=== PATIENT | male | born 1955 | race Caucasian/White ===

== ENCOUNTER 2016-03-13 10:14 | Emergency (ER) | payer MEDICARE ==
[~2016-03-13] VITALS: Ht 188 cm; Wt 94.5 kg
[~2016-03-13 10:14] MED LIST: BUSP10TA PO
[2016-03-13 10:17] VITALS: BP 167/88; PULSE 92; RESP 20; TEMP 97.3; O2SAT 98
[2016-03-13] MEDS ORDERED: PRED50 PO (10:46)
--- NOTE | 2016-03-13 10:47 | PD ---
HPI Chief Complaint: Abdominal Pain Time Seen by Provider: 10:44 Travel History International Travel<30 days: No Contact w/Intl Traveler<30days: No Traveled to known affect area: No History of Present Illness HPI 60-year-old male with no significant medical history presents to the emergency department for evaluation right lower back pain radiating to his thigh. Patient has been seen and evaluated for this in the past. He has not sought follow-up with his primary care provider. Imaging studies were done one week ago in [place] with no acute bony abnormality identified. No new injury. No focal deficits or weakness. He is concerned because he was only given anti- inflammatory medication and he feels that he needs additional pain control. PFSH Past Medical History Arthritis: Yes (KNEES) Diminished Hearing: No Genitourinary: Yes (STATES PROSTATE CONDITION) Social History Alcohol Use: Yes (OCCASIONAL) Tobacco Use: No Substance Use: No (OCCASIONAL ALCOHOL USE) Allergies-Medications (Allergen,Severity, Reaction): Coded Allergies: No Known Allergies (Unverified , 03/13/16) Reported Meds & Prescriptions Reported Meds & Active Scripts Active Prednisone 50 Mg Tab 50 Mg PO DAILY 5 Days Reported Buspirone (Buspirone HCl) 10 Mg Tab 10 Mg PO HS Review of Systems Except as stated in HPI: all other systems reviewed are Neg Physical Exam Narrative GENERAL: Well-nourished male patient, ambulatory with a nonantalgic gait, and no acute distress SKIN: Warm and dry. HEAD: Atraumatic. Normocephalic. EYES: Pupils equal and round. No scleral icterus. No injection or drainage. ENT: No nasal bleeding or discharge. Mucous membranes pink and moist. NECK: Trachea midline. No JVD. CARDIOVASCULAR: Lightly elevated rate and rhythm. No murmur appreciated. RESPIRATORY: No accessory muscle use. Clear to auscultation. Breath sounds equal bilaterally. GASTROINTESTINAL: Abdomen soft, non-tender, nondistended. Hepatic and splenic margins not palpable. MUSCULOSKELETAL: No obvious deformities. No clubbing. No cyanosis. No edema. No midline spinal tenderness to palpation. Equal strength bilateral lower extremities. NEUROLOGICAL: Awake and alert. No obvious cranial nerve deficits. Motor grossly within normal limits. Normal speech. PSYCHIATRIC: Appropriate mood and affect; insight and judgment normal. Data Data Last Documented VS Vital Signs Date Time Temp Pulse Resp B/P Pulse Ox O2 Delivery O2 Flow Rate FiO2 03/13/16 10:17 97.3 92 20 167/88 98 Room Air Orders MDM Medical Decision Making Medical Screen Exam Complete: Yes Emergency Medical Condition: Yes Medical Record Reviewed: Yes Differential Diagnosis Lumbar strain versus discogenic pain versus radiculopathy versus sciatica versus narcotic seeking Narrative Course 60-year-old male presents to the emergency department for evaluation of low back pain. Patient has no acute injury. No focal deficits or weakness. He states that he needs "something more than anti-inflammatory." I advised him he would not be getting narcotic pain control here in the emergency department for low back pain. I have offered a course of steroids to reduce inflammation and encouraged him to follow-up with his primary care provider and seek pain management evaluation if symptoms persist. Standing and agrees to return immediately with any acute worsening of symptoms. Diagnosis Primary Impression: Low back pain Qualified Code: M54.41 - Chronic right-sided low back pain with right-sided sciatica Referrals: Primary Care Physician Patient Instructions: General Instructions, Lumbar Radiculopathy (GEN), Sciatica (ED) Additional Instructions: Avoid activity that exacerbates pain Follow-up with her primary care provider Return immediately to the emergency department with any acute worsening of symptoms Med/Other Pt SpecificInfo: Prescription(s) given Scripts Prednisone 50 Mg Tab50 Mg PO DAILY 5 Days Ref 0 Prov:Junie Dalton 03/13/16 Disposition: 01 DISCHARGE HOME Condition: Stable Junie Dalton Mar 13, 2016 10:47
[2016-03-29] MEDS ORDERED: NAPR220T95 PO (13:47)
[2016-03-29] MEDS ORDERED: TRAM50TA PO (13:47)
[2016-04-12] MEDS ORDERED: HYDR-3583 PO (12:55)
[2016-04-12] MEDS ORDERED: [UNRECOGNIZED DRUG - CODE] PO (13:32)
[2016-04-26] MEDS ORDERED: LUPR22.5 IM (15:40)
== END 2016-03-13 14:03 | disposition home or self-care (01) ==
LOC: NETRI 10:14
DX: M54.41 Lumbago with sciatica, right side (principal)
CPT/HCPCS: 99282

== ENCOUNTER → 2016-04-04 | Day surgery (SDC) | payer MEDICARE ==
[~2016-04-04] VITALS: Ht 186.7 cm; Wt 85.4 kg
[~2016-04-04] MED LIST changes: +BUPIVACAINE HCL PF 0.25% 30 ML VIAL ONE; -BUSP10TA PO; +CIPROFLOXACIN/DEXT 400 MG/200 ML IV SCH; +HYDR-3583 PO; +INSULIN HUMAN REGULAR 1,000 UNITS/10 ML VIAL SQ PRN; +LACTATED RINGER'S 1000 ML IV SCH; +LIDOCAINE 1%/EPINEPHrine 1:100,000 SOLN 30 ML VIAL ONE; +LIDOCAINE 2% JELLY 30 ML TUBE ONE; +LIDOCAINE HCL 1% 50 ML VIAL ONE; +LIDOCAINE HCL 2% JELLY 5 ML SYRINGE ONE; +LUPR22.5 IM; +METOPROLOL TARTRATE 25 MG TAB PO PRN; +NAPR220T95 PO; +SODIUM CHLORID 0.9% 500 ML IV SCH; +TRAM50TA PO; +[UNRECOGNIZED DRUG - CODE] PO
[2016-04-04 08:57] VITALS: BP 162/90; PULSE 90; RESP 20; TEMP 98.1; O2SAT 100
[2016-04-04 09:26] LABS: AUTOMATED NEUTROPHIL # 5.2 TH/MM3 (1.8-7.7); BASOPHIL % 0.2 % (0.0-2.0); EOSINOPHIL % 0.1 % (0.0-4.0); HEMATOCRIT 38.3 % (39.0-51.0); HEMO FLAGS DIFF FINAL; LYMPH % 17.3 % (9.0-44.0); LYMPHOCYTE # 1.2 TH/MM3 (1.0-4.8); MEAN CELL VOLUME 78.8 FL (80.0-100.0); MEAN CORPUSCULAR HGB CONC 35.5 % (32.0-36.0); MONO % 9.4 % (0.0-8.0); PLATELET COUNT 417 TH/MM3 (150-450); RED BLOOD COUNT 4.86 MIL/MM3 (4.50-5.90); RED CELL DISTRIBUTION WIDTH 14.6 % (11.6-17.2); WHITE BLOOD COUNT 7.1 TH/MM3 (4.0-11.0)
[2016-04-04 09:32] LABS: APTT (PATIENT) 29.6 SEC (24.3-30.1); INTERNATIONAL NORMALIZED RATIO 1.1 RATIO; PROTHROMBIN TIME - PATIENT 12.2 SEC (9.8-11.6)
--- NOTE | 2016-04-04 10:52 | PD.OP ---
Operative Report Date of Surgery: Apr 04, 2016 Preoperative Diagnosis: Elevated PSA Postoperative Diagnosis: (1) BPH with elevated PSA Same Procedure: transrectal US with prostate needle biopsies Anesthesia: Local Surgeon: Arvind Abrams [employer] Certified Network Professional(s): none Operation and Findings: Patient is brought to the operating room and identified by myself as Ramez Dejesus. He is placed in the left lateral recumbent position. The ultrasound probe was inserted into the rectum and volumetric measurements of the prostate were then taken. The volume was noted to be 41.78 cm. Hypoechoic lesions were identified on transrectal ultrasound. 1% lidocaine was injected into the prosthetic nerve bundles on each side of the prostate. A total of 10 cc was utilized. 12 core biopsies of the prostate were then taken. He tolerated the procedure well. He will follow-up in the office next scheduled appointment and received a CT scan of the abdomen and pelvis without contrast as well as a bone scan prior to his appointment. Arvind Abrams DO Apr 04, 2016 10:52
[2016-04-04 11:01] VITALS: BP 123/75; PULSE 79; RESP 20; TEMP 98; O2SAT 100
--- NOTE | 2016-04-04 17:38 | EKG ---
Date Performed: 04/04/2016 Time Performed: 09:46:04 PTAGE: 60 years EKG: Sinus rhythm POSSIBLE LEFT ATRIAL ENLARGEMENT BORDERLINE ECG NO PREVIOUS TRACING DOCTOR: Bradley Graham Interpretating Date/Time 04/04/2016 17:35:52
== END | disposition home or self-care (01) ==
LOC: HSDC 08:04
PROVIDERS: ATTEND Urology
DX: C61 Malignant neoplasm of prostate (principal); R94.31 Abnormal electrocardiogram [ECG] [EKG]
CPT/HCPCS: 55700; 85025; 85610; 85730; 93005; G0103; G0416; J0744; J7120

== ENCOUNTER 2016-11-28 19:29 | Emergency (ER) | payer MEDICARE ==
[~2016-11-28] VITALS: Ht 188 cm; Wt 85.5 kg
[~2016-11-28 19:29] MED LIST changes: -BUPIVACAINE HCL PF 0.25% 30 ML VIAL ONE; -CIPROFLOXACIN/DEXT 400 MG/200 ML IV SCH; -INSULIN HUMAN REGULAR 1,000 UNITS/10 ML VIAL SQ PRN; -LACTATED RINGER'S 1000 ML IV SCH; -LIDOCAINE 1%/EPINEPHrine 1:100,000 SOLN 30 ML VIAL ONE; -LIDOCAINE 2% JELLY 30 ML TUBE ONE; -LIDOCAINE HCL 1% 50 ML VIAL ONE; -LIDOCAINE HCL 2% JELLY 5 ML SYRINGE ONE; -LUPR22.5 IM; -METOPROLOL TARTRATE 25 MG TAB PO PRN; -NAPR220T95 PO; -SODIUM CHLORID 0.9% 500 ML IV SCH; -TRAM50TA PO
[2016-11-28 19:34] VITALS: BP 136/77; PULSE 103; RESP 20; TEMP 98; O2SAT 100
--- NOTE | 2016-11-28 19:40 | PD ---
Physical Exam Date Seen by Provider: Nov 28, 2016 Time Seen by Provider: 19:39 Narrative 61 yo male here for anxiety and depression. Feels dizzy and hopeless. History of depression. Some nausea. History of recent prostate cancer diagnosis. Suicidal thoughts but no plan. No chest pain or SOB. Depression and anxiety worsen the past few days, especifically today. Vitals are stable in triage. Awaiting bed placement. Data Data Last Documented VS Vital Signs Date Time Temp Pulse Resp B/P (MAP) Pulse Ox O2 Delivery O2 Flow Rate FiO2 11/28/16 19:34 98.0 103 20 136/77 (96) 100 Room Air [facility] Medical Record Reviewed: Yes Supervised Visit with DOMINIK: No Juan Linares Nov 28, 2016 19:40
--- NOTE | 2016-11-28 20:20 | PD ---
HPI Chief Complaint: Anxiety Time Seen by Provider: 19:51 Travel History International Travel<30 days: No Contact w/Intl Traveler<30days: No Traveled to known affect area: No History of Present Illness HPI 61-year-old male presents to the emergency department for evaluation of depression and anxiety. He states that he has had sadness for approximately 2 years. However, has worsened due to prostate cancer. He states he was diagnosed with prostate cancer approximately 8 months ago. He currently sees Dr. Marsh. He is currently undergoing chemotherapy and radiation therapy. He is currently on morphine for pain. He states he last one at 5:00 this morning. He states that he is actually feeling well and is not needing it. He states that he only wants to take as he needs it. The patient states that he woke up this morning, feeling depressed and anxious. He states that he has been crying all day watching TV. He states that he has no friends and no family in the area. His mother lives in [place]. He does talk to her every day. He states that he has gotten rid of all his friends, even long-term friends. He states that she did this because of "what might happen in the end". However, he will not elaborate on this, but denies suicidal ideation. He also denies homicidal ideation. Patient states that he has not used drugs in 5 years. He has not drank any alcohol in approximately 3 months. PFSH Past Medical History Arthritis: Yes (KNEES) Anxiety: Yes Depression: Yes Cancer: Yes (PROSTATE CANCER) Cardiovascular Problems: No Chemotherapy: Yes (11/24 LAST DOSE) Diabetes: No Diminished Hearing: No Endocrine: No Genitourinary: Yes (STATES PROSTATE CONDITION) Hiatal Hernia: No Immune Disorder: No Musculoskeletal: Yes (ARTHRITIS IN KNEES) Neurologic: No Psychiatric: Yes (ANXIETY AND DEPRESSION) Reproductive: No Respiratory: No Radiation Therapy: Yes (RADITATION X15) Thyroid Disease: No Past Surgical History Tonsillectomy: Yes Other Surgery: Yes Social History Alcohol Use: Yes (OCCASIONAL) Tobacco Use: No Substance Use: No Allergies-Medications (Allergen,Severity, Reaction): Coded Allergies: No Known Allergies (Unverified , 11/28/16) Reported Meds & Prescriptions Reported Meds & Active Scripts Active Reported Morphine ER (Morphine Sulfate) 15 Mg Tab 15 Mg PO DIRECTED Gabapentin 100 Mg Cap 100 Mg PO TID Ferrous Sulfate 325 Mg (65 Mg Iron) Tablet 325 Mg PO BIDPC Flexeril (Cyclobenzaprine HCl) 10 Mg Tab 10 Mg PO TID Review of Systems Except as stated in HPI: all other systems reviewed are Neg Physical Exam Narrative GENERAL: Well-nourished, well-developed male patient, afebrile. SKIN: Focused skin assessment warm/dry. HEAD: Normocephalic. Atraumatic. EYES: No scleral icterus. No injection or drainage. NECK: Supple, trachea midline. No JVD or lymphadenopathy. CARDIOVASCULAR: Regular rate and rhythm without murmurs, gallops, or rubs. RESPIRATORY: Breath sounds equal bilaterally. No accessory muscle use. Lungs sounds are clear to auscultation. GASTROINTESTINAL: Abdomen soft, non-tender, nondistended. MUSCULOSKELETAL: No cyanosis, or edema. PSYCHIATRIC: No delusional thought processes. No hallucinations. Data Data Last Documented VS Vital Signs Date Time Temp Pulse Resp B/P (MAP) Pulse Ox O2 Delivery O2 Flow Rate FiO2 11/28/16 19:34 98.0 103 20 136/77 (96) 100 Room Air Orders Orders Complete Blood Count With Diff (11/28/16 20:13) Comprehensive Metabolic Panel (11/28/16 20:13) Psych Screen (11/28/16 20:13) Drug Screen, Random Urine (11/28/16 20:13) Alcohol (Ethanol) (11/28/16 20:13) Labs Laboratory Tests Test 11/28/16 21:05 White Blood Count 1.3 TH/MM3 Red Blood Count 3.44 MIL/MM3 Hemoglobin 9.0 GM/DL Hematocrit 27.6 % Mean Corpuscular Volume 80.4 FL Mean Corpuscular Hemoglobin 26.2 PG Mean Corpuscular Hemoglobin Concent 32.7 % Red Cell Distribution Width 21.7 % Platelet Count 268 TH/MM3 Mean Platelet Volume 7.5 FL Neutrophils (%) (Auto) 85.6 % Lymphocytes (%) (Auto) 9.6 % Monocytes (%) (Auto) 2.4 % Eosinophils (%) (Auto) 0.3 % Basophils (%) (Auto) 2.1 % Neutrophils # (Auto) 1.1 TH/MM3 Lymphocytes # (Auto) 0.1 TH/MM3 Monocytes # (Auto) 0.0 TH/MM3 Eosinophils # (Auto) 0.0 TH/MM3 Basophils # (Auto) 0.0 TH/MM3 CBC Comment AUTO DIFF Blood Urea Nitrogen 12 MG/DL Creatinine 0.56 MG/DL Random Glucose 109 MG/DL Total Protein 7.7 GM/DL Albumin 3.8 GM/DL Calcium Level 8.1 MG/DL Alkaline Phosphatase 176 U/L Aspartate Amino Transf (AST/SGOT) 29 U/L Alanine Aminotransferase (ALT/SGPT) 14 U/L Total Bilirubin 0.6 MG/DL Sodium Level 132 MEQ/L Potassium Level 4.1 MEQ/L Chloride Level 100 MEQ/L Carbon Dioxide Level 22.7 MEQ/L Anion Gap 9 MEQ/L Estimat Glomerular Filtration Rate 147 ML/MIN Ethyl Alcohol Level LESS THAN 3 MG/DL MDM Medical Decision Making Medical Screen Exam Complete: Yes Emergency Medical Condition: Yes Medical Record Reviewed: Yes Differential Diagnosis Depression versus anxiety versus electrolyte abnormality Narrative Course 61-year-old male presents to the emergency department for anxiety and depression. He does have prostate cancer and is undergoing chemotherapy and radiation therapy. CBC, CMP, alcohol level, urine drug screen are ordered and pending. CBC shows leukopenia 1.3. CMP shows no acute abnormality. Alcohol level is less than 3. Patient is medically cleared for psychiatric screening and disposition. Diagnosis Primary Impression: Depression Qualified Codes: F32.9 - Major depressive disorder, single episode, unspecified Condition: Stable Courtney Rodriguez Nov 28, 2016 20:20
[2016-11-28] MEDS ORDERED: FERR325T8 PO (20:35)
[2016-11-28] MEDS ORDERED: GABA100C4 PO (20:35)
[2016-11-28] MEDS ORDERED: MORP100T40 PO (20:35)
[2016-11-28] MEDS ORDERED: CYCL1TAB29 PO (20:35)
[2016-11-28] MEDS ORDERED: MORP1TAB24 PO (20:36)
[2016-11-28 21:18] LABS: AUTOMATED NEUTROPHIL # 1.1 TH/MM3 (1.8-7.7); BASOPHIL % 2.1 % (0.0-2.0); EOSINOPHIL % 0.3 % (0.0-4.0); HEMATOCRIT 27.6 % (39.0-51.0); LYMPH % 9.6 % (9.0-44.0); LYMPHOCYTE # 0.1 TH/MM3 (1.0-4.8); MEAN CELL VOLUME 80.4 FL (80.0-100.0); MEAN CORPUSCULAR HEMOGLOBIN 26.2 PG (27.0-34.0); MEAN CORPUSCULAR HGB CONC 32.7 % (32.0-36.0); MONO % 2.4 % (0.0-8.0); NEUT % 85.6 % (16.0-70.0); PLATELET COUNT 268 TH/MM3 (150-450); RED BLOOD COUNT 3.44 MIL/MM3 (4.50-5.90); RED CELL DISTRIBUTION WIDTH 21.7 % (11.6-17.2); WHITE BLOOD COUNT 1.3 TH/MM3 (4.0-11.0)
[2016-11-28 21:19] LABS: HEMO FLAGS AUTO DIFF
[2016-11-28 21:31] LABS: ANION GAP 9 MEQ/L (5-15); AST (GOT) 29 U/L (15-37); BICARBONATE 22.7 MEQ/L (21.0-32.0); BLOOD UREA NITROGEN 12 MG/DL (7-18); CHLORIDE 100 MEQ/L (98-107); GLOMERULAR FILTRATION RATE 147 ML/MIN (>89); POTASSIUM 4.1 MEQ/L (3.5-5.1); SODIUM (NA) 132 MEQ/L (136-145)
[2016-11-28 21:32] LABS: ALT (GPT) 14 U/L (12-78)
[2016-11-28 21:33] LABS: ALCOHOL LESS THAN 3 MG/DL (0-5)
[2016-11-28 21:34] LABS: ALKALINE PHOSPHATASE 176 U/L (45-117); TOTAL BILIRUBIN ADULT 0.6 MG/DL (0.2-1.0)
[2016-11-28 22:12] LABS: BANDS 1 % (0-6); BASOPHILS 2 % (0-2); NEUTROPHIL # MANUAL DIFF 1.1 TH/MM3 (1.8-7.7); POLYS (SEG NEUTROPHILS) 87 % (16-70); WBC DIFF SAMPLE 100
[2016-11-28 22:13] LABS: KERATOCYTES OCC (NORMAL); PLATELET ESTIMATE SMEAR NORMAL (NORMAL); PLATELET MORPHOLOGY NORMAL (NORMAL); SCAN/DIFF FINAL DIFF MANUAL
[2016-11-29] MEDS ORDERED: ONDANSETRON ODT 4 MG TAB PO ONE (01:00)
[2016-11-29 01:25] VITALS: BP 138/72; PULSE 100; RESP 20; O2SAT 98
--- NOTE | 2016-11-29 01:32 | PD ---
Data Data Last Documented VS Vital Signs Date Time Temp Pulse Resp B/P (MAP) Pulse Ox O2 Delivery O2 Flow Rate FiO2 11/28/16 19:34 98.0 103 20 136/77 (96) 100 Room Air Orders Orders Complete Blood Count With Diff (11/28/16 20:13) Comprehensive Metabolic Panel (11/28/16 20:13) Psych Screen (11/28/16 20:13) Drug Screen, Random Urine (11/28/16 20:13) Alcohol (Ethanol) (11/28/16 20:13) Ondansetron Odt (Zofran Odt) (11/29/16 01:00) Promethazine Inj (Phenergan Inj) (11/29/16 01:45) Labs Laboratory Tests Test 11/28/16 21:05 White Blood Count 1.3 TH/MM3 Red Blood Count 3.44 MIL/MM3 Hemoglobin 9.0 GM/DL Hematocrit 27.6 % Mean Corpuscular Volume 80.4 FL Mean Corpuscular Hemoglobin 26.2 PG Mean Corpuscular Hemoglobin Concent 32.7 % Red Cell Distribution Width 21.7 % Platelet Count 268 TH/MM3 Mean Platelet Volume 7.5 FL Neutrophils (%) (Auto) 85.6 % Lymphocytes (%) (Auto) 9.6 % Monocytes (%) (Auto) 2.4 % Eosinophils (%) (Auto) 0.3 % Basophils (%) (Auto) 2.1 % Neutrophils # (Auto) 1.1 TH/MM3 Lymphocytes # (Auto) 0.1 TH/MM3 Monocytes # (Auto) 0.0 TH/MM3 Eosinophils # (Auto) 0.0 TH/MM3 Basophils # (Auto) 0.0 TH/MM3 CBC Comment AUTO DIFF Differential Total Cells Counted 100 Neutrophils % (Manual) 87 % Band Neutrophils % 1 % Lymphocytes % 10 % Basophils % 2 % Neutrophils # (Manual) 1.1 TH/MM3 Differential Comment FINAL DIFF MANUAL Atypical Lymphocytes % Platelet Estimate NORMAL Platelet Morphology Comment NORMAL Keratocytes OCC Blood Urea Nitrogen 12 MG/DL Creatinine 0.56 MG/DL Random Glucose 109 MG/DL Total Protein 7.7 GM/DL Albumin 3.8 GM/DL Calcium Level 8.1 MG/DL Alkaline Phosphatase 176 U/L Aspartate Amino Transf (AST/SGOT) 29 U/L Alanine Aminotransferase (ALT/SGPT) 14 U/L Total Bilirubin 0.6 MG/DL Sodium Level 132 MEQ/L Potassium Level 4.1 MEQ/L Chloride Level 100 MEQ/L Carbon Dioxide Level 22.7 MEQ/L Anion Gap 9 MEQ/L Estimat Glomerular Filtration Rate 147 ML/MIN Ethyl Alcohol Level LESS THAN 3 MG/DL MDM Supervised Visit with DOMINIK: Yes Narrative Course The history, exam, and medical decision-making in the associated mid-level provider note were completed with my assistance. I reviewed and agree with the findings presented. I attest that I had a [id number] encounter with the patient on the same day, and personally performed and documented my assessment and findings in the medical record. *My assessment and Findings: 60-year-old man, prostate cancer, last chemotherapy couple weeks ago, here for increased depression and suicidality. Having some nausea when he severe. Given Zofran and promethazine. Labs show some moderate decrease in his white count consistent with his chemotherapy. Not neutropenic. Patient is medically clear for psychiatric evaluation. Diagnosis Primary Impression: Depression Qualified Codes: F32.9 - Major depressive disorder, single episode, unspecified Condition: Stable Baudilio De Los Santos MD Nov 29, 2016 01:32
[2016-11-29] MEDS ORDERED: PROMETHAZINE INJ 25 MG/ML VIAL IM ONE ×2 (01:45→04:45)
[2016-11-29 03:31] VITALS: BP 110/62; PULSE 84; RESP 16; O2SAT 97
--- NOTE | 2016-11-29 04:55 | PD ---
Physical Exam Date Seen by Provider: Nov 29, 2016 Time Seen by Provider: 04:52 Data Data Last Documented VS Vital Signs Date Time Temp Pulse Resp B/P (MAP) Pulse Ox O2 Delivery O2 Flow Rate FiO2 11/29/16 03:31 84 16 110/62 (78) 97 Room Air 11/28/16 19:34 98.0 Orders Orders Complete Blood Count With Diff (11/28/16 20:13) Comprehensive Metabolic Panel (11/28/16 20:13) Psych Screen (11/28/16 20:13) Drug Screen, Random Urine (11/28/16 20:13) Alcohol (Ethanol) (11/28/16 20:13) Ondansetron Odt (Zofran Odt) (11/29/16 01:00) Promethazine Inj (Phenergan Inj) (11/29/16 01:45) Promethazine Inj (Phenergan Inj) (11/29/16 04:45) Labs Laboratory Tests Test 11/28/16 21:05 11/29/16 01:40 White Blood Count 1.3 TH/MM3 Red Blood Count 3.44 MIL/MM3 Hemoglobin 9.0 GM/DL Hematocrit 27.6 % Mean Corpuscular Volume 80.4 FL Mean Corpuscular Hemoglobin 26.2 PG Mean Corpuscular Hemoglobin Concent 32.7 % Red Cell Distribution Width 21.7 % Platelet Count 268 TH/MM3 Mean Platelet Volume 7.5 FL Neutrophils (%) (Auto) 85.6 % Lymphocytes (%) (Auto) 9.6 % Monocytes (%) (Auto) 2.4 % Eosinophils (%) (Auto) 0.3 % Basophils (%) (Auto) 2.1 % Neutrophils # (Auto) 1.1 TH/MM3 Lymphocytes # (Auto) 0.1 TH/MM3 Monocytes # (Auto) 0.0 TH/MM3 Eosinophils # (Auto) 0.0 TH/MM3 Basophils # (Auto) 0.0 TH/MM3 CBC Comment AUTO DIFF Differential Total Cells Counted 100 Neutrophils % (Manual) 87 % Band Neutrophils % 1 % Lymphocytes % 10 % Basophils % 2 % Neutrophils # (Manual) 1.1 TH/MM3 Differential Comment FINAL DIFF MANUAL Atypical Lymphocytes % Platelet Estimate NORMAL Platelet Morphology Comment NORMAL Keratocytes OCC Blood Urea Nitrogen 12 MG/DL Creatinine 0.56 MG/DL Random Glucose 109 MG/DL Total Protein 7.7 GM/DL Albumin 3.8 GM/DL Calcium Level 8.1 MG/DL Alkaline Phosphatase 176 U/L Aspartate Amino Transf (AST/SGOT) 29 U/L Alanine Aminotransferase (ALT/SGPT) 14 U/L Total Bilirubin 0.6 MG/DL Sodium Level 132 MEQ/L Potassium Level 4.1 MEQ/L Chloride Level 100 MEQ/L Carbon Dioxide Level 22.7 MEQ/L Anion Gap 9 MEQ/L Estimat Glomerular Filtration Rate 147 ML/MIN Ethyl Alcohol Level LESS THAN 3 MG/DL Urine Opiates Screen POS Urine Barbiturates Screen NEG Urine Amphetamines Screen NEG Urine Benzodiazepines Screen NEG Urine Cocaine Screen NEG Urine Cannabinoids Screen NEG MDM Medical Record Reviewed: Yes Supervised Visit with DOMINIK: Yes Interpretation(s) Laboratory Tests Test 11/28/16 21:05 11/29/16 01:40 White Blood Count 1.3 TH/MM3 Red Blood Count 3.44 MIL/MM3 Hemoglobin 9.0 GM/DL Hematocrit 27.6 % Mean Corpuscular Volume 80.4 FL Mean Corpuscular Hemoglobin 26.2 PG Mean Corpuscular Hemoglobin Concent 32.7 % Red Cell Distribution Width 21.7 % Platelet Count 268 TH/MM3 Mean Platelet Volume 7.5 FL Neutrophils (%) (Auto) 85.6 % Lymphocytes (%) (Auto) 9.6 % Monocytes (%) (Auto) 2.4 % Eosinophils (%) (Auto) 0.3 % Basophils (%) (Auto) 2.1 % Neutrophils # (Auto) 1.1 TH/MM3 Lymphocytes # (Auto) 0.1 TH/MM3 Monocytes # (Auto) 0.0 TH/MM3 Eosinophils # (Auto) 0.0 TH/MM3 Basophils # (Auto) 0.0 TH/MM3 CBC Comment AUTO DIFF Differential Total Cells Counted 100 Neutrophils % (Manual) 87 % Band Neutrophils % 1 % Lymphocytes % 10 % Basophils % 2 % Neutrophils # (Manual) 1.1 TH/MM3 Differential Comment FINAL DIFF MANUAL Atypical Lymphocytes % Platelet Estimate NORMAL Platelet Morphology Comment NORMAL Keratocytes OCC Blood Urea Nitrogen 12 MG/DL Creatinine 0.56 MG/DL Random Glucose 109 MG/DL Total Protein 7.7 GM/DL Albumin 3.8 GM/DL Calcium Level 8.1 MG/DL Alkaline Phosphatase 176 U/L Aspartate Amino Transf (AST/SGOT) 29 U/L Alanine Aminotransferase (ALT/SGPT) 14 U/L Total Bilirubin 0.6 MG/DL Sodium Level 132 MEQ/L Potassium Level 4.1 MEQ/L Chloride Level 100 MEQ/L Carbon Dioxide Level 22.7 MEQ/L Anion Gap 9 MEQ/L Estimat Glomerular Filtration Rate 147 ML/MIN Ethyl Alcohol Level LESS THAN 3 MG/DL Urine Opiates Screen POS Urine Barbiturates Screen NEG Urine Amphetamines Screen NEG Urine Benzodiazepines Screen NEG Urine Cocaine Screen NEG Urine Cannabinoids Screen NEG Differential Diagnosis . Narrative Course The patient has been seen by the psych screener. He does not believe the patient requires inpatient management. The patient is given outpatient treatment options and information. The patient states that he does not feel suicidal and feels comfortable going home. He does report having an uneasy sensation in nausea in his stomach. He is requesting additional medicine for his stomach. The patient states that the Phenergan seemed to help and he would like another dose. Patient's given Phenergan 25 mg IM. This is adjustment reaction with depressed mood Diagnosis Primary Impression: Depression Qualified Codes: F32.9 - Major depressive disorder, single episode, unspecified Patient Instructions: General Instructions Additional Instruction: Rest. Follow-up with the recommendations of the psych screener. Call your doctor in the morning for further treatment and follow-up. Return to the ER for emergencies. Disposition: 01 DISCHARGE HOME Condition: Stable Dl Zamora Nov 29, 2016 04:55
== END 2016-11-29 07:52 | disposition home or self-care (01) ==
LOC: NEPD 19:29
DX: F32.9 Major depressive disorder, single episode, unspecified (principal)
CPT/HCPCS: 80053; 80307; 85007; 85027; 96372; 99284; J2550

== ENCOUNTER → 2016-12-08 | Outpatient (CLI) | payer MEDICARE ==
[~2016-12-08] MED LIST changes: +COLY4000S PO; +CYCL1TAB29 PO; +FERR325T8 PO; +GABA100C4 PO; -HYDR-3583 PO; +MORP1TAB24 PO; +ONDA4TAB7 PO; -[UNRECOGNIZED DRUG - CODE] PO
== END ==
LOC: CLAB 08:58
PROVIDERS: ATTEND Urology
DX: C79.82 Secondary malignant neoplasm of genital organs (principal)
CPT/HCPCS: 36415; 84153

== ENCOUNTER 2016-12-19 14:27 | Emergency (ER) | payer MEDICARE ==
[~2016-12-19] VITALS: Ht 188 cm; Wt 86.0 kg
[~2016-12-19 14:27] MED LIST changes: -COLY4000S PO; +CYCL10TA PO; -CYCL1TAB29 PO; +FERR325T18 PO; -FERR325T8 PO
[2016-12-19] MEDS ORDERED: IOHEXOL 350 MG/ML 10 ML VIAL (for RAD DIAG) IVCONTRAST ONE (14:28)
[2016-12-19 14:45] VITALS: BP 135/66; PULSE 112; RESP 24; TEMP 97.7; O2SAT 97
[2016-12-19 14:50] VITALS: BP 135/66; PULSE 97; RESP 24; TEMP 97.7; O2SAT 100
[2016-12-19] MEDS ORDERED: SODIUM CHLOR 0.9% 1000 ML INJ 1,000 ML IV SCH (14:52)
[2016-12-19 14:54] VITALS: PULSE 98; RESP 24; O2SAT 100
[2016-12-19] MEDS ORDERED: MORPHINE SULFATE 4 MG/ML INJ IV PUSH ONE (15:00)
[2016-12-19] MEDS ORDERED: SODIUM CHLORIDE 0.9% FLUSH 10 ML FLUSH IV FLUSH PRN (15:00)
[2016-12-19] MEDS ORDERED: ONDANSETRON HCL 4 MG/2 ML VIAL IVP ONE (15:00)
[2016-12-19 15:12] LABS: AUTOMATED NEUTROPHIL # 6.5 TH/MM3 (1.8-7.7); BASOPHIL % 0.1 % (0.0-2.0); HEMATOCRIT 33.2 % (39.0-51.0); HEMO FLAGS DIFF FINAL; LYMPH % 2.4 % (9.0-44.0); LYMPHOCYTE # 0.2 TH/MM3 (1.0-4.8); MEAN CELL VOLUME 79.9 FL (80.0-100.0); MEAN CORPUSCULAR HEMOGLOBIN 25.9 PG (27.0-34.0); MEAN CORPUSCULAR HGB CONC 32.4 % (32.0-36.0); MONO % 1.1 % (0.0-8.0); NEUT % 96.4 % (16.0-70.0); PLATELET COUNT 294 TH/MM3 (150-450); RED BLOOD COUNT 4.16 MIL/MM3 (4.50-5.90); RED CELL DISTRIBUTION WIDTH 21.2 % (11.6-17.2); WHITE BLOOD COUNT 6.8 TH/MM3 (4.0-11.0)
[2016-12-19 15:38] LABS: ALT (GPT) 22 U/L (12-78); ANION GAP 14 MEQ/L (5-15); AST (GOT) 36 U/L (15-37); BLOOD UREA NITROGEN 21 MG/DL (7-18); CHLORIDE 96 MEQ/L (98-107); GLOMERULAR FILTRATION RATE 80 ML/MIN (>89); POTASSIUM 3.7 MEQ/L (3.5-5.1); SODIUM (NA) 131 MEQ/L (136-145)
[2016-12-19 15:40] LABS: ALKALINE PHOSPHATASE 131 U/L (45-117); TOTAL BILIRUBIN ADULT 0.6 MG/DL (0.2-1.0)
--- NOTE | 2016-12-19 15:59 | RADRPT ---
EXAM DATE/TIME: 12/19/2016 15:26 [place] COMPARISON: No previous studies available for comparison. INDICATIONS : Constipation. MEDICAL HISTORY : Carcinoma, prostatic. SURGICAL HISTORY : None. ENCOUNTER: Initial ACUITY: 1 week PAIN SCORE: 10/10 LOCATION: Abdomen. FINDINGS: Supine view of the abdomen was performed. The abdominal bowel gas pattern is normal. No abnormal ma sses, calcifications, or organomegaly is seen. Extensive sclerotic lesions throughout the visualized bones characteristic of metastatic disease.. CONCLUSION: 1. No dilated loops of small or large bowel. 2. Extensive osteosclerotic metastatic disease. Jose Alberto Calhoun MD on December 19, 2016 at 15:57 Board Certified Radiologist. This report was verified electronically.
--- NOTE | 2016-12-19 16:07 | PD ---
HPI Chief Complaint: GI Complaint Time Seen by Provider: 14:51 Travel History International Travel<30 days: No Contact w/Intl Traveler<30days: No Traveled to known affect area: No History of Present Illness HPI 61-year-old male complains of constipation. Patient states that he has not had a bowel movement for the past week. Patient complaining severe pain lower abdomen rectal area. Patient states that he has decrease in oral intake. Patient states that he try [id number] stool softener without much relief. Patient complained of dizziness that for it and lightheadedness when he tried to have bowel movement today. Patient denies any headache. Patient denies any neck pain. Patient denies any chest pain or shortness of breath. Patient states the pain is severe cramping pain localized around the lower abdomen and rectal area. Patient denies any pain radiation. Patient denies any fever chills. Patient has been taking morphine at home for pain. 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) Neurologic: No Psychiatric: Yes (ANXIETY AND DEPRESSION) Reproductive: No Respiratory: No Radiation Therapy: Yes (RADITATION X15) Thyroid Disease: No Tetanus Vaccination: > 5 Years Past Surgical History Tonsillectomy: Yes Other Surgery: Yes Social History Alcohol Use: Yes (OCCASIONAL) Tobacco Use: No Substance Use: No Allergies-Medications (Allergen,Severity, Reaction): Coded Allergies: peanut (Verified Allergy, Severe, Hives, 12/11/16) Reported Meds & Prescriptions Reported Meds & Active Scripts Active Reported Ondansetron Odt 4 Mg Tab 4 Tab PO DAILY Morphine ER (Morphine Sulfate) 15 Mg Tab 15 Mg PO DIRECTED Gabapentin 100 Mg Cap 100 Mg PO TID Ferrous Sulfate 325 Mg (65 Mg Iron) Tablet 325 Mg PO BIDPC Flexeril (Cyclobenzaprine HCl) 10 Mg Tab 10 Mg PO TID Review of Systems General / Constitutional: No: Fever Eyes: No: Visual changes HENT: No: Headaches Cardiovascular: No: Chest Pain or Discomfort Respiratory: No: Shortness of Breath Gastrointestinal: Positive: Abdominal Pain, Constipation Genitourinary: No: Dysuria Musculoskeletal: No: Pain Skin: No Rash Neurologic: No: Weakness Psychiatric: No: Depression Endocrine: No: Polydipsia Hematologic/Lymphatic: No: Easy Bruising Physical Exam Narrative GENERAL: Well-nourished, well-developed patient. SKIN: Focused skin assessment warm/dry. HEAD: Normocephalic. EYES: No scleral icterus. No injection or drainage. NECK: Supple, trachea midline. No JVD or lymphadenopathy. CARDIOVASCULAR: Regular rate and rhythm without murmurs, gallops, or rubs. RESPIRATORY: Breath sounds equal bilaterally. No accessory muscle use. GASTROINTESTINAL: Abdomen soft, nondistended. Patient has moderate diffuse tenderness over the lower abdomen. No rebound tenderness. No mass. Patient has severe tenderness on rectal exam. I do not appreciate any impacted stool per rectum. MUSCULOSKELETAL: No cyanosis, or edema. BACK: Nontender without obvious deformity. No CVA tenderness. Neurologic exam normal. Data Data Last Documented VS Vital Signs Date Time Temp Pulse Resp B/P (MAP) Pulse Ox O2 Delivery O2 Flow Rate FiO2 12/19/16 14:54 98 24 100 Room Air 12/19/16 14:50 97.7 Orders Orders Complete Blood Count With Diff (12/19/16 14:52) Comprehensive Metabolic Panel (12/19/16 14:52) Lipase (12/19/16 14:52) Iv Access Insert/Monitor (12/19/16 14:52) Ecg Monitoring (12/19/16 14:52) Oximetry (12/19/16 14:52) Morphine Inj (Morphine Inj) (12/19/16 15:00) Ondansetron Inj (Zofran Inj) (12/19/16 15:00) Sodium Chlor 0.9% 1000 Ml Inj (Ns 1000 M (12/19/16 14:52) Sodium Chloride 0.9% Flush (Ns Flush) (12/19/16 15:00) Abdomen, Kub Only (12/19/16 14:52) Ct Abd/Pel W Iv Contrast(Rout) (12/19/16 15:55) Iohexol 350 Inj (Omnipaque 350 Inj) (12/19/16 14:28) Labs Laboratory Tests Test 12/19/16 15:04 White Blood Count 6.8 TH/MM3 Red Blood Count 4.16 MIL/MM3 Hemoglobin 10.7 GM/DL Hematocrit 33.2 % Mean Corpuscular Volume 79.9 FL Mean Corpuscular Hemoglobin 25.9 PG Mean Corpuscular Hemoglobin Concent 32.4 % Red Cell Distribution Width 21.2 % Platelet Count 294 TH/MM3 Mean Platelet Volume 6.9 FL Neutrophils (%) (Auto) 96.4 % Lymphocytes (%) (Auto) 2.4 % Monocytes (%) (Auto) 1.1 % Eosinophils (%) (Auto) 0.0 % Basophils (%) (Auto) 0.1 % Neutrophils # (Auto) 6.5 TH/MM3 Lymphocytes # (Auto) 0.2 TH/MM3 Monocytes # (Auto) 0.1 TH/MM3 Eosinophils # (Auto) 0.0 TH/MM3 Basophils # (Auto) 0.0 TH/MM3 CBC Comment DIFF FINAL Differential Comment Blood Urea Nitrogen 21 MG/DL Creatinine 0.95 MG/DL Random Glucose 122 MG/DL Total Protein 7.8 GM/DL Albumin 3.6 GM/DL Calcium Level 8.3 MG/DL Alkaline Phosphatase 131 U/L Aspartate Amino Transf (AST/SGOT) 36 U/L Alanine Aminotransferase (ALT/SGPT) 22 U/L Total Bilirubin 0.6 MG/DL Sodium Level 131 MEQ/L Potassium Level 3.7 MEQ/L Chloride Level 96 MEQ/L Carbon Dioxide Level 21.0 MEQ/L Anion Gap 14 MEQ/L Estimat Glomerular Filtration Rate 80 ML/MIN Lipase 88 U/L [facility] Medical Decision Making Medical Screen Exam Complete: Yes Emergency Medical Condition: Yes Interpretation(s) Last Impressions Abdomen X-Ray 12/19/16 1452 Signed Impressions: Service Date/Time: Monday, December 19, 2016 15:26 - CONCLUSION: 1. No dilated loops of small or large bowel. 2. Extensive osteosclerotic metastatic disease. Jose Alberto Calhoun MD 16 10 PM. CBC WBC 6.8. Hemoglobin 10.7 hematocrit 33.2. MCV 79.9. 96 neutrophil. Sodium 131. BUN 21. Alkaline phosphatase 131. [address] scan abdomen pelvis shows constipation. Differential Diagnosis Differential diagnosis including constipation, stool impaction, pelvic and rectal pain secondary to cancer. Narrative Course 61-year-old male with severe rectal pain and constipation. History of metastatic prostate cancer and on morphine for pain at home. Normal saline solution 1 L IV bolus. Morphine 4 mg IV. Zofran 4 mg IV. Diagnosis Primary Impression: Constipation Qualified Codes: K59.00 - Constipation, unspecified Additional Impression: Prostate cancer metastatic to bone Patient Instructions: General Instructions Additional Instructions: GoLYTELY as directed. Follow-up with personal physician. Return if persistent problem or worse. Med/Other Pt SpecificInfo: Prescription(s) given Scripts Peg-Electrolytes (Golytely 236 gm) 4,000 Ml Soln 4000 ML PO ONCE for Bowel Cleanser, #1 CONTAINER 0 Refills Prov: Aristeo Amaya MD 12/19/16 Disposition: 01 DISCHARGE HOME Condition: Stable Aristeo Amaya MD Dec 19, 2016 16:07
--- NOTE | 2016-12-19 18:11 | RADRPT ---
EXAM DATE/TIME: 12/19/2016 17:19 [facility] COMPARISON: No previous studies available for comparison. INDICATIONS : Lower abdomen pain for one week. IV CONTRAST: 76 cc Omnipaque 350 (iohexol) IV ORAL CONTRAST: No oral contrast ingested. RADIATION DOSE: 6.64 CTDIvol (mGy) MEDICAL HISTORY : Carcinoma, prostate. SURGICAL HISTORY : None. ENCOUNTER: Initial ACUITY: 1 week PAIN SCALE: 8/10 LOCATION: Bilateral lower quadrant TECHNIQUE: Volumetric scanning of the abdomen and pelvis was performed. Using automated exposure control and ad justment of the mA and/or kV according to patient size, radiation dose was kept as low as reasonably achievable to obtain optimal diagnostic quality images. DICOM format image data is available electro nically for review and comparison. FINDINGS: LOWER LUNGS: Several nodules in the lower lungs, the largest is on the left side measuring 11 mm. LIVER: Homogeneous density without lesion. There is no dilation of the biliary tree. No calcified gallston es. SPLEEN: Normal size without lesion. PANCREAS: Within normal limits. KIDNEYS: Normal in size and shape. There is no mass, stone or hydronephrosis. ADRENAL GLANDS: Within normal limits. VASCULAR: There is no aortic aneurysm. BOWEL/MESENTERY: No dilated loops of small or large bowel. Moderate amount of stool in the left colon and sigmoid. ABDOMINAL WALL: Within normal limits. RETROPERITONEUM: There is no lymphadenopathy. BLADDER: No wall thickening or mass. REPRODUCTIVE: Small calcification in the central prostate. External margins of the prostate are smooth. INGUINAL: There is no lymphadenopathy or hernia. MUSCULOSKELETAL: Diffuse multifocal osteosclerotic metastatic disease involving almost all visualized bones. CONCLUSION: 1. Constipation without dilated loops of small bowel. 2. Metastatic disease with diffuse osteosclerotic lesions and lower lung nodules. Jose Alberto Calhoun MD on December 19, 2016 at 18:04 Board Certified Radiologist. This report was verified electronically.
[2016-12-19] MEDS ORDERED: COLY4000S PO (18:37)
== END 2016-12-19 19:59 | disposition home or self-care (01) ==
LOC: NEPE 14:27
DX: K59.00 Constipation, unspecified (principal); C79.51 Secondary malignant neoplasm of bone; C61 Malignant neoplasm of prostate; M17.0 Bilateral primary osteoarthritis of knee; F32.9 Major depressive disorder, single episode, unspecified; Z79.891 Long term (current) use of opiate analgesic
CPT/HCPCS: 74000; 74177; 80053; 83690; 85025; 96361; 96374; 96375; 99285; J2270; J2405; J7030; Q9967

== ENCOUNTER 2016-12-30 18:02 | Inpatient (IN) | payer MEDICARE ==
[~2016-12-30] VITALS: Ht 188 cm; Wt 84.3 kg
[~2016-12-30 18:02] MED LIST changes: +COLY4000S PO
[2016-12-30 18:13] VITALS: BP 132/61; PULSE 103; RESP 16; TEMP 98.7; O2SAT 99
[2016-12-30] MEDS ORDERED: PROC10TA PO (18:38)
[2016-12-30] MEDS ORDERED: CENTCHW4 CHEW (18:38)
[2016-12-30] MEDS ORDERED: STOOTAB PO (18:38)
[2016-12-30] MEDS ORDERED: SODIUM CHLORIDE 0.9% FLUSH 10 ML FLUSH IVF PRN (18:45)
[2016-12-30 19:00] LABS: AUTOMATED NEUTROPHIL # 5.1 TH/MM3 (1.8-7.7); BASOPHIL % 0.2 % (0.0-2.0); EOSINOPHIL % 0.1 % (0.0-4.0); HEMATOCRIT 24.8 % (39.0-51.0); LYMPH % 5.8 % (9.0-44.0); LYMPHOCYTE # 0.4 TH/MM3 (1.0-4.8); MEAN CELL VOLUME 77.5 FL (80.0-100.0); MEAN CORPUSCULAR HEMOGLOBIN 25.5 PG (27.0-34.0); MEAN CORPUSCULAR HGB CONC 32.9 % (32.0-36.0); MONO % 10.2 % (0.0-8.0); NEUT % 83.7 % (16.0-70.0); PLATELET COUNT 400 TH/MM3 (150-450); RED CELL DISTRIBUTION WIDTH 20.3 % (11.6-17.2); WHITE BLOOD COUNT 6.1 TH/MM3 (4.0-11.0)
[2016-12-30 19:01] LABS: HEMO FLAGS AUTO DIFF
[2016-12-30 19:07] LABS: CHLORIDE 102 MEQ/L (98-107); POTASSIUM 4.3 MEQ/L (3.5-5.1); SODIUM (NA) 135 MEQ/L (136-145)
[2016-12-30 19:11] LABS: ANION GAP 7 MEQ/L (5-15); BICARBONATE 25.7 MEQ/L (21.0-32.0); BLOOD UREA NITROGEN 9 MG/DL (7-18)
[2016-12-30 19:13] LABS: APTT (PATIENT) 34.6 SEC (24.3-30.1); PROTHROMBIN TIME - PATIENT 11.4 SEC (9.8-11.6)
[2016-12-30 19:14] LABS: ALT (GPT) 16 U/L (12-78); AST (GOT) 23 U/L (15-37); GLOMERULAR FILTRATION RATE 161 ML/MIN (>89)
[2016-12-30 19:16] LABS: OVALOCYTES 1+ (NORMAL); PLATELET ESTIMATE SMEAR NORMAL (NORMAL); PLATELET MORPHOLOGY NORMAL (NORMAL); SCAN/DIFF AUTO DIFF CONFIRMED; TOTAL BILIRUBIN ADULT 0.4 MG/DL (0.2-1.0)
[2016-12-30 19:17] LABS: ALKALINE PHOSPHATASE 118 U/L (45-117)
[2016-12-30 19:24] VITALS: BP 133/66; PULSE 88; RESP 18; O2SAT 99
[2016-12-30 19:51] VITALS: O2SAT 97
--- NOTE | 2016-12-30 19:59 | PD ---
HPI Chief Complaint: GI Complaint Time Seen by Provider: 19:45 Travel History International Travel<30 days: No Contact w/Intl Traveler<30days: No Traveled to known affect area: No History of Present Illness HPI 61-year-old male presents to the emergency department by private transportation for rectal bleeding. Patient states around 6 PM felt the urge to have a bowel movement then passed some flatus and noticed red blood per rectum. Patient denies any pain rates his pain 0/10 in intensity. Patient states this is a first-time he's ever had slight red blood per rectum. Patient states that subsequently said 2 smaller episodes but each time it's red blood. Patient denies any recent antibiotic use. Patient was recently seen partially 2 weeks ago for abdominal discomfort had a CT which showed some constipation was placed on a laxative but completed that and has not taken any laxatives or stool softeners recently. Patient is currently being treated for metastatic prostate cancer and is under the care of urologist Dr. De Santiago oncologist Dr. Palmer Connell. Patient is currently going through chemotherapy and completed 15 rounds of radiation therapy up partially 3-4 months ago. Patient's cancer was diagnosed approximately 10 months ago. Patient will be receiving his fourth round of chemotherapy this upcoming Sunday and receives chemotherapy every 3 weeks. Patient is currently on a combination of pallets his systemic therapy with Lupron and docetaxel. He is also receiving monthly Zometa infusions. Patient has not been evaluated ever for upper or lower endoscopy. Patient has no history of gastritis peptic ulcer disease or rectal bleeding. Patient's had no nausea vomiting hematemesis coffee-ground emesis or melena. Patient's had no dizziness lightheadedness near-syncope or syncope. No sweats or shortness of breath at rest and no dyspnea on exertion. PFSH Past Medical History Narrative Medical Arthritis anxiety depression depression metastatic prostate cancer chemotherapy radiation therapy prostate biopsy; no tobacco use no alcohol use; nursing notes reviewed Arthritis: Yes (KNEES) Anxiety: Yes Depression: Yes Cancer: Yes (PROSTATE CANCER) Cardiovascular Problems: No Chemotherapy: Yes (LAST Sunday12/15/16 R/T PROSTATE CA) Diabetes: No Diminished Hearing: No Endocrine: No Genitourinary: Yes (STATES PROSTATE CONDITION) Hiatal Hernia: No Immune Disorder: No Musculoskeletal: Yes (ARTHRITIS IN KNEES) Neurologic: No Psychiatric: Yes (ANXIETY AND DEPRESSION) Reproductive: No Respiratory: No Immunizations Current: Yes Radiation Therapy: Yes (RADITATION X15) Thyroid Disease: No Influenza Vaccination: No Past Surgical History Genitourinary Surgery: Yes (PROSTATE BIOPSY) Tonsillectomy: Yes Other Surgery: Yes Social History Alcohol Use: No (QUIT) Tobacco Use: No (NEVER) Substance Use: No Allergies-Medications (Allergen,Severity, Reaction): Coded Allergies: peanut (Verified Allergy, Severe, Hives, 12/30/16) Reported Meds & Prescriptions Reported Meds & Active Scripts Active Reported Centrum (Multiple Vitamins W/ Minerals) 1 Chew 1.5 Tab CHEW BID Stool Softener Laxative 8.6-50 mg (Sennosides-Docusate Sodium) 8.6 Mg-50 Mg Tab 1 Tab PO BID Prochlorperazine Maleate 10 Mg Tab 10 Mg PO TID PRN Morphine ER (Morphine Sulfate) 15 Mg Tab 15 Mg PO BID PRN Gabapentin 100 Mg Cap 100 Mg PO TID Ferrous Sulfate 325 Mg (65 Mg Iron) Tablet 325 Mg PO BIDPC Review of Systems Except as stated in HPI: all other systems reviewed are Neg General / Constitutional: No: Fever, Chills HENT: No: Headaches Cardiovascular: No: Chest Pain or Discomfort Respiratory: No: Shortness of Breath Gastrointestinal: Positive: Hematochezia, No: Nausea, Vomiting, Diarrhea, Abdominal Pain, Hematemesis, Constipation, Loss of Appetite Genitourinary: No: Urgency, Frequency, Dysuria Musculoskeletal: No: Myalgias, Arthralgias Skin: No Rash Neurologic: No: Weakness, Dizziness, Syncope Psychiatric: No: Anxiety Hematologic/Lymphatic: No: Easy Bruising Physical Exam Narrative GENERAL: Well-developed well-nourished male in no acute distress no respiratory distress SKIN: Warm and dry. HEAD: Normocephalic. EYES: No scleral icterus. No injection or drainage. NECK: Supple, trachea midline. No JVD or lymphadenopathy. CARDIOVASCULAR: Regular rate and rhythm without murmurs, gallops, or rubs. RESPIRATORY: Breath sounds equal bilaterally. No accessory muscle use. GASTROINTESTINAL: Abdomen soft, non-tender, nondistended. Rectal exam: No fissure no tear no prolapsed hemorrhoid; normal sphincter tone boggy irregular prostate red blood on exam glove MUSCULOSKELETAL: No cyanosis, or edema. BACK: Nontender without obvious deformity. No CVA tenderness. Data Data Last Documented VS Vital Signs Date Time Temp Pulse Resp B/P (MAP) Pulse Ox O2 Delivery O2 Flow Rate FiO2 12/30/16 19:24 88 18 133/66 (88) 99 Room Air 12/30/16 18:13 98.7 Orders Orders Complete Blood Count With Diff (12/30/16 18:31) Comprehensive Metabolic Panel (12/30/16 18:31) Prothrombin Time / Inr (Pt) (12/30/16 18:31) Act Partial Throm Time (Ptt) (12/30/16 18:31) Type And Screen (12/30/16 18:31) Ecg Monitoring (12/30/16 18:31) Iv Access Insert/Monitor (12/30/16 18:31) Oximetry (12/30/16 18:31) Sodium Chloride 0.9% Flush (Ns Flush) (12/30/16 18:45) Urinalysis - C+S If Indicated (12/30/16 19:45) Ct Abd/Pel W Iv Contrast(Rout) (12/30/16 ) Labs Laboratory Tests Test 12/30/16 18:45 White Blood Count 6.1 TH/MM3 Red Blood Count 3.20 MIL/MM3 Hemoglobin 8.2 GM/DL Hematocrit 24.8 % Mean Corpuscular Volume 77.5 FL Mean Corpuscular Hemoglobin 25.5 PG Mean Corpuscular Hemoglobin Concent 32.9 % Red Cell Distribution Width 20.3 % Platelet Count 400 TH/MM3 Mean Platelet Volume 6.3 FL Neutrophils (%) (Auto) 83.7 % Lymphocytes (%) (Auto) 5.8 % Monocytes (%) (Auto) 10.2 % Eosinophils (%) (Auto) 0.1 % Basophils (%) (Auto) 0.2 % Neutrophils # (Auto) 5.1 TH/MM3 Lymphocytes # (Auto) 0.4 TH/MM3 Monocytes # (Auto) 0.6 TH/MM3 Eosinophils # (Auto) 0.0 TH/MM3 Basophils # (Auto) 0.0 TH/MM3 CBC Comment AUTO DIFF Differential Comment AUTO DIFF CONFIRMED Platelet Estimate NORMAL Platelet Morphology Comment NORMAL Ovalocytes 1+ Prothrombin Time 11.4 SEC Prothromb Time International Ratio 1.0 RATIO Activated Partial Thromboplast Time 34.6 SEC Blood Urea Nitrogen 9 MG/DL Creatinine 0.52 MG/DL Random Glucose 102 MG/DL Total Protein 6.3 GM/DL Albumin 2.7 GM/DL Calcium Level 7.9 MG/DL Alkaline Phosphatase 118 U/L Aspartate Amino Transf (AST/SGOT) 23 U/L Alanine Aminotransferase (ALT/SGPT) 16 U/L Total Bilirubin 0.4 MG/DL Sodium Level 135 MEQ/L Potassium Level 4.3 MEQ/L Chloride Level 102 MEQ/L Carbon Dioxide Level 25.7 MEQ/L Anion Gap 7 MEQ/L Estimat Glomerular Filtration Rate 161 ML/MIN [facility] Medical Decision Making Medical Screen Exam Complete: Yes Emergency Medical Condition: Yes Medical Record Reviewed: Yes Differential Diagnosis Upper GI bleed lower GI bleed internal hemorrhoidal bleeding, post radiation/ chemotherapy prostate bleeding, anemia Narrative Course IV access obtained specimens collected and sent for resulting Orthostatic measurements ordered Patient's case discussed with on-call die engraver Dr. Cano, will see patient in consultation [facility] Point of Care Internal Pos. & Neg. Controls: Passed Fecal Specimen Occult Blood: Positive Physician Communication Physician Communication discussed with GI wind turbine controls engineer; discussed with [facility] for admission Diagnosis Primary Impression: Lower GI bleed Additional Impressions: Anemia Prostate cancer metastatic to bone Sandra Mariee MD Dec 30, 2016 19:59
[2016-12-30] MEDS ORDERED: IOHEXOL 350 MG/ML 10 ML VIAL (for RAD DIAG) IVCONTRAST ONE (20:14)
[2016-12-30] MEDS ORDERED: SODIUM CHLORIDE 0.9% FLUSH 10 ML FLUSH IV FLUSH PRN (20:15)
[2016-12-30] MEDS ORDERED: LACTULOSE SYRUP 20 GM/30 ML CUP PO PRN (20:15)
[2016-12-30] MEDS ORDERED: ACETAMINOPHEN 325 MG TAB PO PRN (20:15)
[2016-12-30] MEDS ORDERED: MAGNESIUM HYDROXIDE SUSP 30 ML CUP PO PRN (20:15)
[2016-12-30] MEDS ORDERED: ACETAMINOPHEN/HYDROcodone 325 MG/5 MG TAB PO PRN (20:15)
[2016-12-30] MEDS ORDERED: ONDANSETRON HCL 4 MG/2 ML VIAL IVP PRN (20:15)
[2016-12-30] MEDS ORDERED: SENNOSIDES 8.6 MG TAB PO PRN (20:15)
[2016-12-30] MEDS ORDERED: BISACODYL 10 MG SUPP RECTAL PRN (20:15)
[2016-12-30] MEDS ORDERED: MORPHINE SULFATE 4 MG/ML INJ IV PUSH PRN (20:15)
--- NOTE | 2016-12-30 20:35 | RADRPT ---
EXAM DATE/TIME: 12/30/2016 20:07 [facility] COMPARISON: CT ABDOMEN & PELVIS W CONTRAST, December 19, 2016, 17:19. INDICATIONS : Blood in stool. IV CONTRAST: 85 cc Omnipaque 350 (iohexol) IV ORAL CONTRAST: No oral contrast ingested. RADIATION DOSE: 10.34 CTDIvol (mGy) MEDICAL HISTORY : Carcinoma, prostate. SURGICAL HISTORY : None. ENCOUNTER: Initial ACUITY: 1 day PAIN SCALE: 2/10 LOCATION: lower quadrant TECHNIQUE: Volumetric scanning of the abdomen and pelvis was performed. Using automated exposure control and ad justment of the mA and/or kV according to patient size, radiation dose was kept as low as reasonably achievable to obtain optimal diagnostic quality images. DICOM format image data is available electro nically for review and comparison. FINDINGS: LOWER LUNGS: There are least 5 and noncalcified pulmonary nodules in the left lower lobe, unchanged from the prior study. These measure up to 6 mm. LIVER: Homogeneous density without lesion. There is no dilation of the biliary tree. No calcified gallston es. SPLEEN: Normal size without lesion. PANCREAS: Within normal limits. KIDNEYS: Normal in size and shape. There is no mass, stone or hydronephrosis. ADRENAL GLANDS: Within normal limits. VASCULAR: There is no aortic aneurysm. There is mild atherosclerotic disease. BOWEL/MESENTERY: The stomach and small bowel demonstrate no abnormality. There is mild circumferential wall thickening of the rectum and inflammatory change within the mesorectal fat. There is no free air or free fluid. ABDOMINAL WALL: Within normal limits. RETROPERITONEUM: There is stable a right internal iliac lymphadenopathy measuring 3.4 x 2.7 cm, left external iliac ly mphadenopathy measuring 1.6 cm, left common iliac lymphadenopathy measuring 3.3 cm, and left para-aor tic lymphadenopathy measuring approximately 2.1 cm. BLADDER: No wall thickening or mass. REPRODUCTIVE: There are punctate calcifications within the prostate gland. INGUINAL: There is no lymphadenopathy. There is fluid in the right inguinal canal versus a high riding testicle . MUSCULOSKELETAL: There are innumerable sclerotic lesions throughout all the visualized vertebral bodies, ribs, and pel rik bones. CONCLUSION: 1. Abnormal rectal wall thickening with perirectal inflammation indicating a proctitis. 2. Findings indicative of metastatic disease from the patient's prostate cancer including innumerable sclerotic bone lesions and multiple pulmonary nodules in the left lower lobe. 3. There are multiple stable abnormal retroperitoneal lymph nodes in the abdomen and pelvis likely re lated to lymphatic spread of disease. Ric Brady MD on December 30, 2016 at 20:23 Board Certified Radiologist. This report was verified electronically.
[2016-12-30] MEDS: SODIUM CHLORIDE 0.9% FLUSH 10 ML FLUSH IV FLUSH SCH (20:53)
[2016-12-30 21:00] VITALS: BP 150/87; PULSE 94; RESP 16; TEMP 97.8; O2SAT 97
[2016-12-30 21:03] VITALS: BP 136/64; PULSE 84; RESP 18; O2SAT 98
[2016-12-30 21:04] VITALS: BP_SYST 136; BP_SYST 140; BP_DIAS 64; BP_DIAS 68
[2016-12-30 21:10] LABS: BLOOD, URINE TRACE (NEG); GLUCOSE,URINE NEG (NEG); KETONE, URINE NEG (NEG); NITRITE,URINE NEG (NEG); PH, URINE 6.5 (5.0-8.5)
[2016-12-30] MEDS ORDERED: CIPROFLOXACIN 400 MG PREMIX 200 ML IV ONE (21:15)
[2016-12-30] MEDS ORDERED: metroNIDAZOLE 500 MG INJ 100 ML IV ONE (21:15)
[2016-12-30 21:24] LABS: COMMENT (UR) CULT NOT INDICATED; CULTURE IF INDICATED CULT NOT INDICATED; RBC, URINE 0-3 /hpf (0-3); SQUAMOUS EPITHELIAL CELL URINE 0-5 /hpf (0-5); URINE COLOR YELLOW (YELLW/STRAW); WBC, URINE 0-2 /hpf (0-5)
[2016-12-30] MEDS: DOCUSATE SODIUM 50 MG/SENNA 8.6 MG TAB PO SCH (22:04)
[2016-12-31] VITALS (8 sets, daily range): BP systolic 112–129; BP diastolic 65–93; PULSE 83–103; RESP 14–18; TEMP 96.1–99.2; O2SAT 95–100
[2016-12-31] MEDS: metroNIDAZOLE 500 MG INJ 100 ML IV SCH ×3 (05:55→21:17)
[2016-12-31 07:13] LABS: AUTOMATED NEUTROPHIL # 5.1 TH/MM3 (1.8-7.7); BASOPHIL % 0.2 % (0.0-2.0); EOSINOPHIL % 0.2 % (0.0-4.0); HEMO FLAGS DIFF FINAL; LYMPH % 6.5 % (9.0-44.0); LYMPHOCYTE # 0.4 TH/MM3 (1.0-4.8); MEAN CORPUSCULAR HEMOGLOBIN 26.9 PG (27.0-34.0); NEUT % 83.1 % (16.0-70.0); PLATELET COUNT 316 TH/MM3 (150-450); RED BLOOD COUNT 2.78 MIL/MM3 (4.50-5.90); RED CELL DISTRIBUTION WIDTH 21.6 % (11.6-17.2); WHITE BLOOD COUNT 6.1 TH/MM3 (4.0-11.0)
[2016-12-31 07:22] LABS: POTASSIUM 3.9 MEQ/L (3.5-5.1)
[2016-12-31 07:48] LABS: BICARBONATE 26.8 MEQ/L (21.0-32.0); CALCIUM-PROTEIN CORRECTED 8.1 MG/DL (8.5-10.1); TOTAL BILIRUBIN ADULT 0.4 MG/DL (0.2-1.0)
[2016-12-31] MEDS: DOCUSATE SODIUM 50 MG/SENNA 8.6 MG TAB PO SCH ×2 (08:18→21:00)
[2016-12-31] MEDS: SODIUM CHLORIDE 0.9% FLUSH 10 ML FLUSH IV FLUSH SCH ×2 (08:25→21:18)
[2016-12-31] MEDS: SODIUM CHLOR 0.9% 1000 ML INJ 1,000 ML IV SCH ×2 (08:25→20:10)
[2016-12-31] MEDS: GABAPENTIN 100 MG CAP PO SCH ×3 (08:25→16:19)
[2016-12-31] MEDS: CIPROFLOXACIN 400 MG PREMIX 200 ML IV SCH ×2 (08:29→21:17)
[2016-12-31] MEDS ORDERED: BISACODYL EC 5 MG TABEC PO ONE (10:00)
--- NOTE | 2016-12-31 10:32 | MB ---
cc: KEITH LAYNE MD DATE OF CONSULTATION: 12/31/2016 REASON FOR CONSULTATION: Rectal bleeding. HISTORY OF PRESENT ILLNESS The patient is a 61 year-old male patient who presented to the emergency room last night complaining of fresh blood per rectum that he described as painless and described as fresh blood not mixed with a stool that happened at least three times before presentation to the emergency room. The patient never had any similar symptoms in the past and never had any previous endoscopy evaluation or screening colonoscopy. The patient had recently a CT scan of the abdomen two weeks ago. At that time he was complaining of some abdominal discomfort and nausea. CT scan showed a large amount of fecal material and was prescribed laxative, and his symptoms completely resolved. In the emergency room the patient was found to be comfortable but pale. His labs showed a hemoglobin of 8.2 that dropped to 7.5 this morning and his indices suggestive of iron deficiency anemia with microcytic hypochromic picture. His electrolytes were essentially within normal limits and his coags normal. GI consulted for evaluation and possible endoscopic evaluation. REVIEW OF SYSTEMS 14 point review of all were negative except the ones mentioned in the history of present illness. PAST MEDICAL HISTORY 1. Prostate CA status post radiation and chemotherapy currently undergoing treatment. 2. History of chronic arthritis 3. Anxiety disorder and depression. PAST SURGICAL HISTORY: Past surgical history only positive for prostate biopsy. SOCIAL HISTORY The patient quit alcohol using, never smoked, and no history of IV drug abuse. ALLERGIES PEANUTS MEDICATIONS 1. Centrum 2. Laxative 3. Stool softener. 4. Morphine sulfate 5. Gabapentin. 6. Ferrous sulfate PHYSICAL EXAMINATION: On examination the patient appeared to be pale but not in distress or in pain, good hydration status, well-nourished. HEAD AND NECK: Examination normocephalic, atraumatic. Pupils equal and reactive to light. Supple neck. No lymphadenopathy. No thyromegaly. Chest: Clear to auscultation bilaterally. No crackles or wheezes. Heart: Regular rate and rhythm. No murmurs. Abdomen: Soft, nontender. No hepatosplenomegaly. No palpable masses. Extremities: Normal pulses. No edema. Neuro: Cranial nerves II-XII grossly intact. No focal motor deficits. SKIN: No rashes. LABORATORY DATA White count of 6.1, hemoglobin 7.5, hematocrit 22.0, low MCV, MCH, platelet count 316. Chemistry within normal limits with creatinine 0.37, BUN of 5, albumin 2.4 and total protein 5.8. IMAGING STUDIES: CT abdomen showed abnormal septal wall thickening, and rectal inflammation indicating proctitis, along with sclerotic bone lesions, multiple pulmonary nodules suggestive of metastasis from the prostate. ASSESSMENT/PLAN A 61-year-old male patient who presented with the following problems: 1. Painless rectal bleeding. 2. Microcytic hypochromic anemia. 3. CT scan showing evidence of rectal thickening suggestive of proctitis. 4. No previous endoscopic evaluation including screening colonoscopy. 5. History of gastric prostate CA currently receiving chemo radiation. RECOMMENDATIONS: Would proceed with endoscopic evaluation with EGD and colonoscopy in the a.m. The procedure was explained to the patient including risks, benefits and possible complications and he agreed to proceed with the procedure. Other recommendations include blood transfusion. Start bowel prep with clear liquid diet, n.p.o. after midnight, GoLYTELY for bowel preparation along with Dulcolax. Further recommendations to follow. Thank you for the consultation. Keith ELLSWORTH /9:05 AM /10:13 AM
--- NOTE | 2016-12-31 10:40 | HHI.HP ---
HPI Service [facility] Primary Care Physician Palmer Marsh MD Admission Diagnosis Lower GI bleed; anemia; metastatic prostate cancer Diagnoses: Chief Complaint: Blood per rectum Travel History International Travel<30 Days: No Contact w/Intl Traveler <30 Da: No Traveled to Known Affected Are: No History of Present Illness 61-year-old white male being admitted for bright red blood per rectum. Patient was in his usual state of health until about earlier this week when he was constipated. He underwent a change in his diet and substantially had improvement in his bowel movements. However yesterday he did notice having some bright red blood per rectum which was painless. Says that earlier in the week he had taken some Goody powder but denies taking any other nonsteroidal anti-inflammatories. He was instructed by his oncologist apparently to proceed to the emergency room for his rectal bleeding. Patient denies ever having rectal bleeding in the past. Patient denies any nausea vomiting or hematemesis or melena. Denies any jace chest pain shortness of breath or lightheadedness. Review of Systems Except as stated in HPI: all other systems reviewed are Neg Past Family Social History Past Medical History Arthritis, anxiety, depression, prostate cancer, radiation therapy for prostate cancer Past Surgical History Prostate biopsy, tonsillectomy Allergies: Coded Allergies: peanut (Verified Allergy, Severe, Hives, 12/30/16) Family History None per patient Social History Denies tobacco use, stopped drinking about 2-3 months ago, up until then he had been drinking a can of beer 2 whiskeys every night. Physical Exam Vital Signs Vital Signs Date Time Temp Pulse Resp B/P (MAP) Pulse Ox O2 Delivery O2 Flow Rate FiO2 12/31/16 04:00 98.3 83 16 127/74 (91) 97 12/31/16 00:00 97.8 88 16 112/65 (81) 97 12/30/16 21:22 88 18 98 12/30/16 21:04 84 136/64 (88) 88 140/68 (92) 12/30/16 21:03 84 18 136/64 (88) 98 Room Air 12/30/16 21:00 97.8 94 16 150/87 (108) 97 12/30/16 19:51 97 12/30/16 19:24 88 18 133/66 (88) 99 Room Air 12/30/16 18:13 98.7 103 16 132/61 (84) 99 Physical Exam VS: Afebrile GENERAL: Middle-aged white male, well-nourished, pale, awake, no acute distress SKIN: Warm and dry. EYES: No scleral icterus. No injection or drainage. ENT: No nasal bleeding or discharge. Mucous membranes pink and moist. CARDIOVASCULAR: Regular rate and rhythm. no murmurs RESPIRATORY: No accessory muscle use. Clear to auscultation. Breath sounds equal bilaterally. GASTROINTESTINAL: Abdomen soft, non-tender, nondistended. Hepatic and splenic margins not palpable. Extremities: No clubbing, cyanosis, or edema. No obvious deformities. MUSCULOSKELETAL: Extremities without clubbing, cyanosis, or edema. No obvious deformities. grossly intact ROM with 5/5 strength in upper and lower extremities proximally NEUROLOGICAL: Awake and alert. No obvious cranial nerve deficits. No facial droop nor slurred speech noted. PSYCHIATRIC: Appropriate mood and affect; insight and judgment normal. Laboratory Laboratory Tests Test 12/30/16 18:45 12/30/16 20:50 12/30/16 21:30 12/31/16 06:51 White Blood Count 6.1 6.1 Red Blood Count 3.20 2.78 Hemoglobin 8.2 7.5 Hematocrit 24.8 22.0 Mean Corpuscular Volume 77.5 79.0 Mean Corpuscular Hemoglobin 25.5 26.9 Mean Corpuscular Hemoglobin Concent 32.9 34.0 Red Cell Distribution Width 20.3 21.6 Platelet Count 400 316 Mean Platelet Volume 6.3 6.5 Neutrophils (%) (Auto) 83.7 83.1 Lymphocytes (%) (Auto) 5.8 6.5 Monocytes (%) (Auto) 10.2 10.0 Eosinophils (%) (Auto) 0.1 0.2 Basophils (%) (Auto) 0.2 0.2 Neutrophils # (Auto) 5.1 5.1 Lymphocytes # (Auto) 0.4 0.4 Monocytes # (Auto) 0.6 0.6 Eosinophils # (Auto) 0.0 0.0 Basophils # (Auto) 0.0 0.0 CBC Comment AUTO DIFF DIFF FINAL Differential Comment AUTO DIFF CONFIRMED Platelet Estimate NORMAL Platelet Morphology Comment NORMAL Ovalocytes 1+ Prothrombin Time 11.4 Prothromb Time International Ratio 1.0 Activated Partial Thromboplast Time 34.6 Blood Urea Nitrogen 9 5 Creatinine 0.52 0.37 Random Glucose 102 96 Total Protein 6.3 5.8 Albumin 2.7 2.4 Calcium Level 7.9 7.5 Alkaline Phosphatase 118 104 Aspartate Amino Transf (AST/SGOT) 23 24 Alanine Aminotransferase (ALT/SGPT) 16 13 Total Bilirubin 0.4 0.4 Sodium Level 135 136 Potassium Level 4.3 3.9 Chloride Level 102 103 Carbon Dioxide Level 25.7 26.8 Anion Gap 7 6 Estimat Glomerular Filtration Rate 161 238 Urine Color YELLOW Urine Turbidity CLEAR Urine pH 6.5 Urine Specific [place] 1.031 Urine Protein NEG Urine Glucose (UA) NEG Urine Ketones NEG Urine Occult Blood TRACE Urine Nitrite NEG Urine Bilirubin NEG Urine Leukocyte Esterase NEG Urine RBC 0-3 Urine WBC 0-2 Urine Squamous Epithelial Cells 0-5 Urine Bacteria NONE Microscopic Urinalysis Comment CULT NOT INDICATED Lactic Acid Level 1.0 Protein Corrected Calcium 8.1 Date/Time Source Procedure Growth Status 12/30/16 21:32 Blood Peripheral Aerobic Blood Culture Pending Received 12/30/16 21:32 Blood Peripheral Anaerobic Blood Culture Pending Received Result Diagram: 12/31/16 0651 12/31/16 0651 Imaging Last Impressions Abdomen/Pelvis CT 12/30/16 0000 Signed Impressions: Service Date/Time: Sunday, December 30, 2016 20:07 - CONCLUSION: 1. Abnormal rectal wall thickening with perirectal inflammation indicating a proctitis. 2. Findings indicative of metastatic disease from the patient's prostate cancer including innumerable sclerotic bone lesions and multiple pulmonary nodules in the left lower lobe. 3. There are multiple stable abnormal retroperitoneal lymph nodes in the abdomen and pelvis likely related to lymphatic spread of disease. MD Eloisa Coto VTE Risk Assessment Caprini VTE Risk Assessment: Mod/High Risk (score >= 2) Caprini Risk Assessment Model Point Value = 1 Point Value = 2 Point Value = 3 Point Value = 5 Age 41-60 Minor surgery BMI > 25 kg/m2 Swollen legs Varicose veins or History of unexplained or recurrent spontaneous Oral contraceptives or hormone replacement Sepsis (< 1 month) Serious lung disease, including pneumonia (< 1 month) Abnormal pulmonary function Acute myocardial infarction Congestive heart failure (< 1 month) History of inflammatory bowel disease Medical patient at bed rest Age 61-74 Arthroscopic surgery Major open surgery (> 45 min) Laparoscopic surgery (> 45 min) Malignancy Confined to bed (> 72 hours) Immobilizing plaster cast Central venous access Age >= 75 History of VTE Family history of VTE Factor V Leiden Prothrombin [id number] Lupus anticoagulant Anticardiolipin antibodies Elevated serum homocysteine Heparin-induced thrombocytopenia Other congenital or acquired thrombophilia Stroke (< 1 month) Elective arthroplasty Hip, pelvis, or leg fracture Acute spinal cord injury (< 1 month) Prophylaxis Regimen Total Risk Factor Score Risk Level Prophylaxis Regimen 0-1 Low Early ambulation 2 Moderate Order ONE of the following: *Sequential Compression Device (SCD) *Heparin 5000 units SQ BID 3-4 Higher Order ONE of the following medications: *Heparin 5000 units SQ TID *Enoxaparin/Lovenox 40 mg SQ daily (WT < 150 kg, CrCl > 30 mL/min) *Enoxaparin/Lovenox 30 mg SQ daily (WT < 150 kg, CrCl > 10-29 mL/min) *Enoxaparin/Lovenox 30 mg SQ BID (WT < 150 kg, CrCl > 30 mL/min) AND/OR *Sequential Compression Device (SCD) 5 or more Highest Order ONE of the following medications: *Heparin 5000 units SQ TID (Preferred with Epidurals) *Enoxaparin/Lovenox 40 mg SQ daily (WT < 150 kg, CrCl > 30 mL/min) *Enoxaparin/Lovenox 30 mg SQ daily (WT < 150 kg, CrCl > 10-29 mL/min) *Enoxaparin/Lovenox 30 mg SQ BID (WT < 150 kg, CrCl > 30 mL/min) AND *Sequential Compression Device (SCD) Assessment and Plan Assessment and Plan 61-year-old white male being admitted for bright red blood per rectum. Possible lower GI bleed - My independent review of the CT scan shows significant constipation. Radiology read also has findings indicative of rectal wall thickening. - Etiologies vary from colorectal cancer to mucosal wall shearing - case d/w Gastroenterology, plans for colonoscopy and EGD in a.m. - proceed with clear liquid diet today after receiving oral prep - H&H is low but could be chronically low from his chemotherapy, monitor - Telemetry - NPO after midnight Chronic anemia - Holding home iron for now given constipation Prostate cancer - Followed outpatient by oncology VTE prevention -would qualify for Lovenox but given GI bleed, we'll proceed with SCDs Ari Lowe MD Dec 31, 2016 10:40
[2016-12-31] MEDS ORDERED: PROCHLORPERAZINE MALEATE 10 MG TAB PO PRN (10:45)
[2016-12-31] MEDS: FAMOTIDINE 20 MG/2 ML VIAL IV PUSH SCH ×2 (12:07→23:35)
[2016-12-31] MEDS: PANTOPRAZOLE SOD 40 MG DELAYED RELEASE TAB PO SCH (12:07)
[2016-12-31] MEDS ORDERED: PEG (High)/E-LYTE SOLN 4000 ML BTL PO ONE (16:00)
[2017-01-01] VITALS (8 sets, daily range): BP systolic 108–138; BP diastolic 67–80; PULSE 82–96; RESP 16–20; TEMP 96.5–98.5; O2SAT 93–98
[2017-01-01] MEDS: metroNIDAZOLE 500 MG INJ 100 ML IV SCH ×3 (05:28→22:00)
[2017-01-01 06:14] LABS: HEMATOCRIT 21.5 % (39.0-51.0); MEAN CELL VOLUME 77.4 FL (80.0-100.0); MEAN CORPUSCULAR HEMOGLOBIN 25.3 PG (27.0-34.0); MEAN CORPUSCULAR HGB CONC 32.6 % (32.0-36.0); RED BLOOD COUNT 2.78 MIL/MM3 (4.50-5.90); RED CELL DISTRIBUTION WIDTH 21.3 % (11.6-17.2); WHITE BLOOD COUNT 5.7 TH/MM3 (4.0-11.0)
[2017-01-01 06:15] LABS: AUTOMATED NEUTROPHIL # 4.6 TH/MM3 (1.8-7.7); BASOPHIL % 0.3 % (0.0-2.0); EOSINOPHIL % 0.1 % (0.0-4.0); LYMPH % 8.2 % (9.0-44.0); LYMPHOCYTE # 0.5 TH/MM3 (1.0-4.8); MONO % 11.3 % (0.0-8.0); NEUT % 80.1 % (16.0-70.0); PLATELET COUNT 377 TH/MM3 (150-450)
[2017-01-01 06:45] LABS: HEMO FLAGS AUTO DIFF
[2017-01-01 07:50] LABS: OVALOCYTES 1+ (NORMAL); PLATELET ESTIMATE SMEAR NORMAL (NORMAL); PLATELET MORPHOLOGY NORMAL (NORMAL); SCAN/DIFF AUTO DIFF CONFIRMED
[2017-01-01] MEDS: SODIUM CHLOR 0.9% 1000 ML INJ 1,000 ML IV SCH ×2 (08:05→20:00)
[2017-01-01] MEDS: SODIUM CHLORIDE 0.9% FLUSH 10 ML FLUSH IV FLUSH SCH ×2 (09:00→23:18)
[2017-01-01] MEDS: DOCUSATE SODIUM 50 MG/SENNA 8.6 MG TAB PO SCH ×2 (09:00→21:00)
--- NOTE | 2017-01-01 09:19 | PD.PSY.CON ---
Provisional Diagnosis Admission Date Dec 30, 2016 at 20:06 [place] I. Adjustment disorder with depressed mood, [place] II. Deferred [place] III. BPH, arthritis, prostate cancer History of Present Illness Service Psychiatry Consult Requested By Hospitalist Reason for Consult Suicidal statements Primary Care Physician Palmer Marsh MD HPI The patient is 61-year-old man, domiciled alone in [place], single , supported by disability, without any previous psychiatric history, no previous psychiatric hospitalizations, no previous suicidal attempts, with medical history of BPH, prostate cancer, arthritis, who has being admitted for bright red blood per rectum. Patient was in his usual state of health until about earlier this week when he was constipated. He underwent a change in his diet and substantially had improvement in his bowel movements. However yesterday he did notice having some bright red blood per rectum which was painless. Says that earlier in the week he had taken some Goody powder but denies taking any other nonsteroidal anti-inflammatories. He was instructed by his oncologist apparently to proceed to the emergency room for his rectal bleeding. Patient denies ever having rectal bleeding in the past. Patient denies any nausea vomiting or hematemesis or melena. Denies any jace chest pain shortness of breath or lightheadedness. She was consulted to psychiatry due to suicidal statements also due to bizarre thoughts. On psychiatric evaluation today the patient is calm, cooperative and pleasant. Patient is found in his room wearing dark glasses.. Patient reports very good mood today, , compared with yesterday 05/29, "because last night finally could have a decent sleep". Patient reports that he has been having difficulty time and has been very distressed while he is in chemotherapy due to his underlying medical conditions. He says that he always has been a very happy person, early motivated, always "artistic and creative" "and able to achieve all my goals". Regarding his suicidal statement yesterday, he says that he was completely misunderstood he says that he loves himself too much in order to suicide, but he was having sad thoughts of better being "if I have to be sick". Patient says that his GOD liver, his mother who is 97 years old keeps in fighting. When he was confronted about bizarre thinking yesterday, he says that "been bizarre is my element". He says that he is car is the more colorful and well known car in [place], "decorated with a adry of lights". He says that since he was an adolescent he has been live in the paranormal activities " is a fundamental part of my life", however, the patient denies previous symptomatology of power, denies visual and auditory hallucinations. He endorses having paranormal perceptual in the past, communicated with people "in many different ways". Patient has used alcohol heavily in the past, also use hallucinogens, cocaine, cannabis, but he has been sober for about 7 years. Review of Systems Constitutional: DENIES: Diaphoretic episodes, Fatigue, Fever, Weight gain, Weight loss, Chills, Dizziness, Change in appetite, Night Sweats Endocrine: DENIES: Heat/cold intolerance, Polydipsia, Polyuria, Polyphagia Eyes: DENIES: Blurred vision, Diplopia, Eye inflammation, Eye pain, Vision loss , Photosensitivity, Double Vision Ears, nose, mouth, throat: DENIES: Tinnitus, Hearing loss, Vertigo, Nasal discharge, Oral lesions, Throat pain, Hoarseness, Ear Pain, Running Nose, Epistaxis, Sinus Pain, Toothache, Odynophagia Respiratory: DENIES: Apneas, Cough, Snoring, Wheezing, Hemoptysis, Sputum production, Shortness of breath Cardiovascular: DENIES: Chest pain, Palpitations, Syncope, Dyspnea on Exertion , PND, Lower Extremity Edema, Orthopnea, Claudication Gastrointestinal: DENIES: Abdominal pain, Black stools, Bloody stools, Constipation, Diarrhea, Nausea, Vomiting, Difficulty Swallowing, Anorexia Genitourinary: DENIES: Sexual dysfunction, Urinary frequency, Urinary incontinence, Urgency, Hematuria, Dysuria, Nocturia, Penile Discharge, Testicular Pain, Testicular Swelling Musculoskeletal: DENIES: Joint pain, Muscle aches, Stiffness, Joint Swelling, Back pain, Neck pain Integumentary: DENIES: Abnormal pigmentation, Nail changes, Pruritus, Rash Hematologic/lymphatic: DENIES: Bruising, Lymphadenopathy Neurologic: DENIES: Abnormal gait, Headache, Localized weakness, Paresthesias, Seizures, Speech Problems, Tremor, Poor Balance Psychiatric: DENIES: Anxiety, Confusion, Mood changes, Depression, Hallucinations, Agitation, Suicidal Ideation, Homicidal Ideation, Delusions Past Family Social History Coded Allergies: peanut (Verified Allergy, Severe, Hives, 12/30/16) Reported Medications Multiple Vitamins W/ Minerals (Centrum) 1 Chew, 1.5 TAB CHEW BID for Nutritional Supplement, TAB 0 Refills 12/30/16 Sennosides-Docusate Sodium (Stool Softener Laxative 8.6-50 mg) 8.6 Mg-50 Mg Tab , 1 TAB PO BID 12/30/16 Prochlorperazine Maleate (Prochlorperazine Maleate) 10 Mg Tab, 10 MG PO TID Y for NAUSEA OR VOMITING, #6 TAB 0 Refills 12/30/16 Morphine ER (Morphine ER) 15 Mg Tab, 15 MG PO BID Y for PAIN SCALE 1 TO 10, TAB 0 Refills 11/28/16 Gabapentin (Gabapentin) 100 Mg Cap, 100 MG PO TID, #90 CAP 0 Refills 11/28/16 Ferrous Sulfate (Ferrous Sulfate) 325 Mg (65 Mg Iron) Tablet, 325 MG PO BIDPC for Nutritional Supplement, #60 TAB 0 Refills 11/28/16 Discontinued Reported Medications Ondansetron Odt (Ondansetron Odt) 4 Mg Tab, 4 TAB PO DAILY for Nausea/Vomiting, #1 TAB 0 Refills 12/11/16 Cyclobenzaprine (Flexeril) 10 Mg Tab, 10 MG PO TID for Muscle Spasm, #90 TAB 0 Refills 11/28/16 Discontinued Scripts Peg-Electrolytes (Golytely 236 gm) 4,000 Ml Soln, 4000 ML PO ONCE for Bowel Cleanser, #1 CONTAINER 0 Refills Prov:Aristeo Amaya MD 12/19/16 Current Medications Medications (Trade) Dose Ordered Sig/Savita Route Start Time Stop Time Status Last Admin (NS Flush) 2 ml UNSCH PRN IV FLUSH 12/30/16 20:15 (NS Flush) 2 ml BID IV FLUSH 12/30/16 21:00 12/31/16 21:18 (Zofran Inj) 4 mg Q6H PRN IVP 12/30/16 20:15 (Tylenol) 650 mg Q6H PRN PO 12/30/16 20:15 ([place] 5-325 Mg) 1 tab Q4H PRN PO 12/30/16 20:15 (Morphine Inj) 2 mg Q3H PRN IV PUSH 12/30/16 20:15 ([place]-Colace) 1 tab BID PO 12/30/16 21:00 12/30/16 22:04 (Milk Of Magnesia Liq) 30 ml Q12H PRN PO 12/30/16 20:15 (Senokot) 17.2 mg Q12H PRN PO 12/30/16 20:15 (Dulcolax Supp) 10 mg DAILY PRN RECTAL 12/30/16 20:15 (Lactulose Liq) 30 ml DAILY PRN PO 12/30/16 20:15 (Neurontin) 100 mg TID PO 12/31/16 09:00 12/31/16 16:19 Ciprofloxacin/ Dextrose 200 ml @ 200 mls/hr Q12H IV 12/31/16 09:00 12/31/16 21:17 Metronidazole 100 ml @ 100 mls/hr Q8H IV 12/31/16 06:00 01/01/17 05:28 Sodium Chloride 1,000 ml @ 84 mls/hr [id number] IV 12/31/16 08:15 12/31/16 20:10 (Compazine) 10 mg TID PRN PO 12/31/16 10:45 (Pepcid Inj) 20 mg Q12H IV PUSH 12/31/16 12:00 12/31/16 23:35 (Protonix) 40 mg DAILY PO 12/31/16 12:00 12/31/16 12:07 Family Psych History Patient denies family psychiatric history Social History Patient was born and raised in [place], domiciled along in [place], his single, has a daughter, unemployed, supported by disability, his highest level of education is high school Patient's Strengths (min. 2) Buddhism beliefs, no previous psychiatric history Physical Exam No EPS, no tremors, no stiffness, no psychomotor agitation or retardation, no gait disturbance Vital Signs Vital Signs Date Time Temp Pulse Resp B/P (MAP) Pulse Ox O2 Delivery O2 Flow Rate FiO2 01/01/17 08:00 97.6 84 20 115/70 (85) 98 12/30/16 21:03 Room Air I/O 01/01/17 01/01/17 01/02/17 08:00 16:00 00:00 Intake Total 482 ml Balance 482 ml Lab Results Test 01/01/17 05:30 White Blood Count 5.7 TH/MM3 Red Blood Count 2.78 MIL/MM3 Hemoglobin 7.0 GM/DL Hematocrit 21.5 % Mean Corpuscular Volume 77.4 FL Mean Corpuscular Hemoglobin 25.3 PG Mean Corpuscular Hemoglobin Concent 32.6 % Red Cell Distribution Width 21.3 % Platelet Count 377 TH/MM3 Mean Platelet Volume 6.8 FL Neutrophils (%) (Auto) 80.1 % Lymphocytes (%) (Auto) 8.2 % Monocytes (%) (Auto) 11.3 % Eosinophils (%) (Auto) 0.1 % Basophils (%) (Auto) 0.3 % Neutrophils # (Auto) 4.6 TH/MM3 Lymphocytes # (Auto) 0.5 TH/MM3 Monocytes # (Auto) 0.6 TH/MM3 Eosinophils # (Auto) 0.0 TH/MM3 Basophils # (Auto) 0.0 TH/MM3 CBC Comment AUTO DIFF Differential Comment AUTO DIFF CONFIRMED Platelet Estimate NORMAL Platelet Morphology Comment NORMAL Ovalocytes 1+ Date/Time Source Procedure Growth Status 12/30/16 21:32 Blood Peripheral Aerobic Blood Culture - Preliminary NO GROWTH IN 1 DAY Resulted 12/30/16 21:32 Blood Peripheral Anaerobic Blood Culture - Preliminary NO GROWTH IN 1 DAY Resulted Mental Status Examination Appearance: Appropriate, Other (kark glassess) Consciousness: Alert Orientation: x4 Motor Activity: Normal gait Speech: Unremarkable Language: Adequate Fund of Knowledge: Adequate Attention and Concentration: Adequate Memory: Unremarkable Mood: Appropriate Affect: Appropriate Thought Process & Associations: Intact Thought Content: Appropriate Hallucination Type: None Delusion Type: None Suicidal Ideation: No Suicidal Plan: No Suicidal Intention: No Homicidal Ideation: No Homicidal Plan: No Homicidal Intention: No Insight: Adequate Judgment: Adequate Assessment & Plan Problem List: (1) Adjustment disorder with depressed mood ICD Codes: F43.21 - Adjustment disorder with depressed mood Assessment & Plan: On psychiatric evaluation today the patient presents with good mood, level of energy, good level of concentration, logical, coherent and relevant. He does reports moment of sadness, mood swings, generalized pessimism , related with underlying acute medical problems. Patient is oriented 3, without attention deficit, no fluctuation of consciousness. Patient denies suicidal and homicidal ideation, he denies visual and auditory hallucinations at this moment. She admits that he has stated that he had thought, but he denies suicidal ideation, he is future oriented and is able to identify multiple protective factors for suicidality. Regarding bizarre thinking, in my opinion and based in psychiatric assessment patient has several elements in biographical history and also thought processes the suggest strong cluster A personality traits, maybe schizotypal like characteristics. Patient does not meet criteria for involuntary psychiatric admission at this moment. He will benefit of trazodone 100 mg at bedtime with depressive symptoms and also with insomnia. Brief supportive psychotherapy provided. We'll follow-up. Assessment & Plan Estimated LOS: days Mike Fountain MD Jan 01, 2017 09:19
[2017-01-01] MEDS: PANTOPRAZOLE SOD 40 MG DELAYED RELEASE TAB PO SCH (09:26)
[2017-01-01] MEDS: GABAPENTIN 100 MG CAP PO SCH ×3 (09:26→17:33)
[2017-01-01] MEDS: CIPROFLOXACIN 400 MG PREMIX 200 ML IV SCH ×2 (09:26→21:00)
[2017-01-01] MEDS: FAMOTIDINE 20 MG/2 ML VIAL IV PUSH SCH ×2 (09:31→23:18)
[2017-01-01] MEDS ORDERED: LACTATED RINGER'S 1000 ML IV PRN (14:30)
[2017-01-01] MEDS ORDERED: POVIDONE IODINE 5% (ANTISEPSIS KIT) 4 APPLICATIONS EACH NARE PRN (14:30)
[2017-01-01] MEDS ORDERED: SODIUM CHLORID 0.9% 500 ML IV PRN (14:30)
[2017-01-01] MEDS ORDERED: CHLORHEXIDINE GLUCONATE 2 % 1 PACK (2 CLOTHS) TOPICAL PRN (14:30)
[2017-01-01] MEDS ORDERED: METOPROLOL TARTRATE 25 MG TAB PO PRN (14:30)
[2017-01-01] MEDS ORDERED: INSULIN HUMAN REGULAR 1,000 UNITS/10 ML VIAL SQ PRN (14:30)
--- NOTE | 2017-01-01 15:27 | GIPROC ---
[facility] [address] [place] [address], [id number] COLONOSCOPY PROCEDURE REPORT EXAM DATE: 01/01/2017 PATIENT NAME: Ramez Dejesus MR #: [id number] BIRTHDATE: 1955 ENDOSCOPIST: Debi Fuller MD ORDER #: [id number] STEAM BOX TENDER: Kings Bazzi and Gretta Fox STATUS: inpatient INDICATIONS: The patient is a 61 yr old male here for a colonoscopy due to rectal bleeding PROCEDURE PERFORMED: Colonoscopy with biopsy MEDICATIONS: None and Per Anesthesia. PREP QUALITY: poor PREP TYPE:Other: ESTIMATED BLOOD LOSS: None CONSENT: The patient understands the risks and benefits of the procedure and understands that these risks include, but are not limited to: sedation, allergic reaction, infection, perforation and/or bleeding. Alternative means of evaluation and treatment include, among others: physical exam, x-rays, and/or surgical intervention. The patient elects to proceed with this endoscopic procedure. medical equipment was checked for proper function. Hand hygiene and appropriate measures for infection prevention was taken. After the risks, benefits and alternatives of the procedure were thoroughly explained, Informed consent was verified, confirmed and timeout was successfully executed by the treatment team. A digital exam external hemorrhoids, indurated mucosa rectum The Pentax [id number] endoscope was introduced through the anus and advanced to the cecum, which was identified by both the appendix and ileocecal valve. The instrument was then slowly withdrawn as the colon was fully examined. COLON FINDINGS: Poor prep rectal ulcers -most likely secondary radiation-biopsy. Retroflexed views revealed internal hemorrhoids and Retroflexed views revealed small internal hemorrhoids The scope was then completely withdrawn from the patient and the procedure terminated. PROCEDURE WITHDRAWAL TIME:6minutes ADVERSE EVENTS: There were no complications. IMPRESSIONS: 1. Poor prep rectal ulcers -most likely secondary radiation-biopsy 2. Retroflexed views revealed internal hemorrhoids 3. Retroflexed views revealed small internal hemorrhoids 4. External hemorrhoids, indurated mucosa rectum RECOMMENDATIONS: 1. Await biopsy results. Biopsy results will not be ready for 7-10 days. If you don't hear from us in two weeks, call our office for results. 2. Yearly rectal exams 3. Probiotics from any C or health food store 4. Canasa supp if dc office 1-2 weeks RECALL: Return 3 months Colonoscopy Debi Fuller MD eSigned: Debi Fuller MD 01/01/2017 3:27 PM cc:
--- NOTE | 2017-01-01 15:29 | GIPROC ---
[address], [address] EGD PROCEDURE REPORT EXAM DATE: 01/01/2017 PATIENT NAME: Ramez Dejesus MR #: [id number] BIRTHDATE: 1955 ATTENDING: Debi Fuller MD ORDER #: [id number] INTEGRATED MARKETING MANAGER: Gretta Fox and Kings Bazzi STATUS: inpatient INDICATIONS: The patient is a 61 yr old male here for an EGD due to anemia, gi bleeding PROCEDURE PERFORMED: EGD w/ biopsy MEDICATIONS: None and Per Anesthesia. TOPICAL ANESTHETIC: none CONSENT: The patient understands the risks and benefits of the procedure and understands that these risks include, but are not limited to: sedation, allergic reaction, infection, perforation and/or bleeding. Alternative means of evaluation and treatment include, among others: physical exam, x-rays, and/or surgical intervention. The patient elects to proceed with this endoscopic procedure. medical equipment was checked for proper function. Hand hygiene and appropriate measures for infection prevention was taken. After the risks, benefits and alternatives of the procedure were thoroughly explained, Informed consent was verified, confirmed and timeout was successfully executed by the treatment team. The patient was anesthetized with topical anesthesia and the [id number] (Pedi C) endoscope was introduced through the mouth and advanced to the second portion of the duodenum. Retroflexed views revealed a hiatal hernia The gastroscope was then slowly withdrawn and removed. Duodenum normal-biopsy superficial clean base ulcer antrum-biopsy esophagitis distal esophagus -biopsy. ADVERSE EVENTS: There were no complications. IMPRESSIONS: 1. Duodenum normal-biopsy superficial clean base ulcer antrum-biopsy esophagitis distal esophagus -biopsy 2. Retroflexed views revealed a hiatal hernia RECOMMENDATIONS: 1. Await biopsy results. Biopsy results will not be ready for 7-10 days. If you don't hear from us in two weeks, call our office for biopsy results. 2. Continue PPI 3. Avoid NSAIDS PATIENT CONDITION: stable DISPOSITION: Inpatient REPEAT EXAM: Return 3 months EGD Debi Fuller MD eSigned: Debi Fuller MD 01/01/2017 3:29 PM cc:
[2017-01-01] MEDS ORDERED: PROPOFOL 200 MG/20 ML AMP IV ONE (16:46)
[2017-01-01] MEDS ORDERED: OMEP40CA2 PO (17:26)
--- NOTE | 2017-01-01 17:26 | HHI.DCPOC ---
Discharge Care Plan Diagnosis: (1) Gastric ulcer (2) Rectal ulcer (3) Lower GI bleed Goals to Promote Your Health * To prevent worsening of your condition and complications * To maintain your health at the optimal level Directions to Meet Your Goals Take your medications as prescribed Follow your dietary instruction Follow activity as directed Keep your appointments as scheduled Take your immunizations and boosters as scheduled If your symptoms worsen call your PCP, if no PCP go to Urgent Care Center or Emergency Room Smoking is Dangerous to Your Health. Avoid second hand smoke Call the 24-hour hour crisis hotline for domestic abuse at Ari Lowe MD Jan 01, 2017 17:26
[2017-01-01] MEDS ORDERED: SODIUM CHLOR 0.9% 250 ML INJ 250 ML IV ONE (17:30)
--- NOTE | 2017-01-01 17:30 | HHI.PR ---
Objective Vital Signs Date Time Temp Pulse Resp B/P (MAP) Pulse Ox O2 Delivery O2 Flow Rate FiO2 01/01/17 16:05 80 16 103/59 (74) 100 01/01/17 15:55 97.9 79 16 95/59 (71) 100 01/01/17 15:35 97.9 79 16 95/53 (67) 100 01/01/17 14:05 96.5 89 18 108/67 (81) 93 01/01/17 12:00 97.5 82 20 122/68 (86) 98 01/01/17 08:00 97.6 84 20 115/70 (85) 98 01/01/17 04:00 96.5 89 18 108/67 (81) 95 01/01/17 00:00 98.5 94 20 115/69 (84) 96 12/31/16 23:00 103 12/31/16 20:00 83 12/31/16 20:00 98.6 93 18 127/71 (89) 95 I/O 12/31/16 12/31/16 12/31/16 01/01/17 01/01/17 01/01/17 07:00 15:00 23:00 07:00 15:00 23:00 Intake Total 300 ml 472 ml 1502 ml 682 ml 0 ml 400 ml Balance 300 ml 472 ml 1502 ml 682 ml 0 ml 400 ml Intake Oral 472 ml 580 ml 0 ml IV Total 300 ml 922 ml 682 ml Other 400 ml # Voids 3 4 4 8 # Bowel Movements 3 3 5 10 Result Diagram: 01/01/17 0530 12/31/16 0651 Objective Remarks Patient appears to be lying in bed, no acute distress, abdomen is soft, nontender nondistended A/P Assessment and Plan 61-year-old white male being admitted for bright red blood per rectum. lower GI bleed - Colonoscopy and EGD both show ulcers, no signs of active bleeding - Patient hasn't had any bloody bowel movements since admission or black tarry stools. Discussed with Dr. Marsh, patient willing to do 1 unit of transfusion and then go home today and follow up closely with oncology for repeat blood work. Patient counseled to avoid all nonsteroidal anti-inflammatory drugs including Goody powders. Vital signs are stable, patient has no signs of syncope or lightheadedness. Spent less than 30 minutes upon discharge for this patient. Ari Lowe MD Jan 01, 2017 17:29
[2017-01-01] MEDS ORDERED: CANA10002 RECTAL (17:31)
--- NOTE | 2017-01-01 19:33 | EKG ---
Date Performed: 01/01/2017 Time Performed: 04:27:12 PTAGE: 61 years EKG: Sinus rhythm POSSIBLE LEFT ATRIAL ENLARGEMENT MODERATE ST DEPRESSION ABNORMAL ECG Since PREVIOUS TRACING , no significant change noted PREVIOUS TRACIN04/04/2016 09.46 DOCTOR: Lu Vazquez Interpretating Date/Time 01/01/2017 19:31:57
[2017-01-01] MEDS ORDERED: MESALAMINE 1000 MG SUPP RECTAL SCH (21:00)
[2017-01-01] MEDS ORDERED: traZODone HCL 100 MG TAB PO SCH (21:00)
== END 2017-01-01 23:45 | disposition home or self-care (01) | DRG 378 ==
LOC: PHED 18:02 → PHEDA 20:06 → PH3A 21:12
PROVIDERS: ADMIT Family Medicine; ATTEND Family Medicine
PROC: 0DB68ZX Excision of Stomach, Via Natural or Artificial Opening Endoscopic, Diagnostic (ICD-10-PCS; 2017-01-01)
PROC: 0DB38ZX Excision of Lower Esophagus, Via Natural or Artificial Opening Endoscopic, Diagnostic (ICD-10-PCS; 2017-01-01)
PROC: 30233N1 Transfusion of Nonautologous Red Blood Cells into Peripheral Vein, Percutaneous Approach (ICD-10-PCS; 2017-01-01)
PROC: 0DBP8ZX Excision of Rectum, Via Natural or Artificial Opening Endoscopic, Diagnostic (ICD-10-PCS; principal; 2017-01-01 14:52)
PROC: 0DB98ZX Excision of Duodenum, Via Natural or Artificial Opening Endoscopic, Diagnostic (ICD-10-PCS; 2017-01-01 14:52)
DX: K62.5 Hemorrhage of anus and rectum (principal); K62.6 Ulcer of anus and rectum; C79.51 Secondary malignant neoplasm of bone; K25.9 Gastric ulcer, unspecified as acute or chronic, without hemorrhage or perforation; K64.8 Other hemorrhoids; Y84.2 Radiological procedure and radiotherapy as the cause of abnormal reaction of the patient, or of later complication, without mention of misadventure at the time of the procedure; Z85.46 Personal history of malignant neoplasm of prostate; Z92.3 Personal history of irradiation; Z92.21 Personal history of antineoplastic chemotherapy; K64.4 Residual hemorrhoidal skin tags; D50.9 Iron deficiency anemia, unspecified; K44.9 Diaphragmatic hernia without obstruction or gangrene; K20.9 Esophagitis, unspecified; F41.8 Other specified anxiety disorders; K59.00 Constipation, unspecified
CPT/HCPCS: 36430; 74177; 80053; 81001; 83605; 85025; 85610; 85730; 86850; 86900; 86901; 86920; 87040; 88305; 88312; 93005; J0744; J7030; J7120; P9016; Q9967

== ENCOUNTER 2017-02-14 09:55 | Emergency (ER) | payer MEDICARE ==
[~2017-02-14] VITALS: Ht 188 cm; Wt 88.0 kg
[~2017-02-14 09:55] MED LIST changes: +CANA10002 RECTAL; +CENTCHW4 CHEW; -COLY4000S PO; -CYCL10TA PO; +OMEP40CA2 PO; -ONDA4TAB7 PO; +PROC10TA PO; +STOOTAB PO
[2017-02-14 10:04] VITALS: BP 143/69; PULSE 92; RESP 16; TEMP 97.4; O2SAT 96
[2017-02-14] MEDS ORDERED: ONDA4TAB7 SL (10:22)
[2017-02-14] MEDS ORDERED: MEGE40TA PO (10:22)
--- NOTE | 2017-02-14 10:25 | PD ---
HPI Chief Complaint: Abdominal Pain Time Seen by Provider: 10:20 Travel History International Travel<30 days: No Contact w/Intl Traveler<30days: No Traveled to known affect area: No History of Present Illness HPI 61-year-old male patient with history of prostate cancer with bone metastases, was done with chemotherapy [address] Connell, presents to the ER today because of 4-5 days of increased nausea, but cannot vomit. He has had ongoing abdominal pains which has been taking morphine at home for. He denies any fevers but states he has been having chest discomfort and shortness of breath, states that his legs on both sides are swelling up. He was told by his oncologist office to come to the ER for further evaluation. Modifying Factors: None Associated Signs & Symptoms: Leg swelling, increased nausea, abdominal pain Risk Factors: Prostate cancer history, chemotherapy PFSH Past Medical History Arthritis: Yes (KNEES) Anxiety: Yes Depression: Yes Cancer: Yes (prostate with bony mets) Cardiovascular Problems: No Chemotherapy: Yes (3 weeks ago) Diabetes: No Diminished Hearing: No Endocrine: No Genitourinary: Yes Hiatal Hernia: No Immune Disorder: No Musculoskeletal: No Neurologic: No Psychiatric: Yes Reproductive: No Respiratory: No Immunizations Current: Yes Radiation Therapy: Yes (15 tx) Thyroid Disease: No Past Surgical History Genitourinary Surgery: Yes (PROSTATE BIOPSY) Oral Surgery: Yes (tonsilectomy) Tonsillectomy: Yes Other Surgery: Yes Social History Alcohol Use: No (QUIT) Tobacco Use: No (NEVER) Substance Use: No Allergies-Medications (Allergen,Severity, Reaction): Coded Allergies: peanut (Verified Allergy, Severe, Hives, 02/14/17) Reported Meds & Prescriptions Reported Meds & Active Scripts Active Reported Megestrol (Megestrol Acetate) 40 Mg Tab 40 Mg PO BID Ondansetron Odt 4 Mg Tab 4 Mg SL Q6HR PRN Prochlorperazine Maleate 10 Mg Tab 10 Mg PO TID PRN Morphine ER (Morphine Sulfate) 15 Mg Tab 15 Mg PO BID PRN Gabapentin 100 Mg Cap 100 Mg PO BID Review of Systems Except as stated in HPI: all other systems reviewed are Neg Physical Exam Narrative GENERAL: Well-developed elderly white male patient currently in moderate distress. Awake and oriented 3. SKIN: Focused skin assessment warm/dry. HEAD: Atraumatic. Normocephalic. EYES: Pupils equal and round. No scleral icterus. No injection or drainage. ENT: No nasal bleeding or discharge. Mucous membranes pink and moist. NECK: Trachea midline. No JVD. Supple. CARDIOVASCULAR: Regular rate and rhythm. No murmur appreciated. RESPIRATORY: No accessory muscle use. Clear to auscultation. Breath sounds equal bilaterally. GASTROINTESTINAL: Abdomen soft, diffuse tenderness without guarding or rebound, nondistended. Hepatic and splenic margins not palpable. MUSCULOSKELETAL: No obvious deformities. No clubbing. No cyanosis. Bilateral pitting edema of legs, mostly in the feet. NEUROLOGICAL: Awake and alert. No obvious cranial nerve deficits. Motor grossly within normal limits. Normal speech. PSYCHIATRIC: Appropriate mood and affect; insight and judgment normal. Data Data Last Documented VS Vital Signs Date Time Temp Pulse Resp B/P (MAP) Pulse Ox O2 Delivery O2 Flow Rate FiO2 02/14/17 11:56 88 20 150/89 (109) 96 Room Air 02/14/17 10:04 97.4 Orders Orders Urinalysis - C+S If Indicated (02/14/17 09:57) Complete Blood Count With Diff (02/14/17 10:20) Comprehensive Metabolic Panel (02/14/17 10:20) Lipase (02/14/17 10:20) Ct Abd/Pel W Iv Contrast(Rout) (02/14/17 10:20) Iv Access Insert/Monitor (02/14/17 10:20) Ecg Monitoring (02/14/17 10:20) Oximetry (02/14/17 10:20) Sodium Chloride 0.9% Flush (Ns Flush) (02/14/17 10:30) Chest, Single Ap (02/14/17 10:20) Ondansetron Inj (Zofran Inj) (02/14/17 10:30) B-Type Natriuretic Peptide (02/14/17 10:25) Us Leg Venous Doppler Bilat (02/14/17 10:25) Iohexol 350 Inj (Omnipaque 350 Inj) (02/14/17 11:27) Promethazine Inj (Phenergan Inj) (02/14/17 12:00) Ed Discharge Order (02/14/17 12:55) Labs Laboratory Tests Test 02/14/17 10:28 02/14/17 12:30 White Blood Count 7.2 TH/MM3 Red Blood Count 3.29 MIL/MM3 Hemoglobin 8.2 GM/DL Hematocrit 25.6 % Mean Corpuscular Volume 77.8 FL Mean Corpuscular Hemoglobin 24.8 PG Mean Corpuscular Hemoglobin Concent 31.9 % Red Cell Distribution Width 22.1 % Platelet Count 519 TH/MM3 Mean Platelet Volume 6.5 FL Neutrophils (%) (Auto) 86.9 % Lymphocytes (%) (Auto) 4.8 % Monocytes (%) (Auto) 5.3 % Eosinophils (%) (Auto) 0.1 % Basophils (%) (Auto) 2.9 % Neutrophils # (Auto) 6.3 TH/MM3 Lymphocytes # (Auto) 0.3 TH/MM3 Monocytes # (Auto) 0.4 TH/MM3 Eosinophils # (Auto) 0.0 TH/MM3 Basophils # (Auto) 0.2 TH/MM3 CBC Comment DIFF FINAL Differential Comment Blood Urea Nitrogen 13 MG/DL Creatinine 0.38 MG/DL Random Glucose 101 MG/DL Total Protein 7.4 GM/DL Albumin 2.9 GM/DL Calcium Level 8.3 MG/DL Alkaline Phosphatase 91 U/L Aspartate Amino Transf (AST/SGOT) 21 U/L Alanine Aminotransferase (ALT/SGPT) 12 U/L Total Bilirubin 0.6 MG/DL Sodium Level 136 MEQ/L Potassium Level 3.6 MEQ/L Chloride Level 101 MEQ/L Carbon Dioxide Level 24.9 MEQ/L Anion Gap 10 MEQ/L Estimat Glomerular Filtration Rate 231 ML/MIN B-Type Natriuretic Peptide 33 PG/ML Lipase 73 U/L Urine Collection Type CLEAN CATCH Urine Color YELLOW Urine Turbidity CLEAR Urine pH 6.0 Urine Specific Cornish GREATER THAN 1.035 Urine Protein NEG mg/dL Urine Glucose (UA) NEG mg/dL Urine Ketones 80 OR GREATER mg/dL Urine Occult Blood NEG Urine Nitrite NEG Urine Bilirubin NEG Urine Leukocyte Esterase NEG Urine Squamous Epithelial Cells 0-5 /hpf Microscopic Urinalysis Comment CULT NOT INDICATED MDM Medical Decision Making Medical Screen Exam Complete: Yes Emergency Medical Condition: Yes Medical Record Reviewed: Yes Interpretation(s) Laboratory Tests Test 02/14/17 10:28 02/14/17 12:30 Red Blood Count 3.29 MIL/MM3 (4.50-5.90) Hemoglobin 8.2 GM/DL (13.0-17.0) Hematocrit 25.6 % (39.0-51.0) Mean Corpuscular Volume 77.8 FL (80.0-100.0) Mean Corpuscular Hemoglobin 24.8 PG (27.0-34.0) Mean Corpuscular Hemoglobin Concent 31.9 % (32.0-36.0) Red Cell Distribution Width 22.1 % (11.6-17.2) Platelet Count 519 TH/MM3 (150-450) Mean Platelet Volume 6.5 FL (7.0-11.0) Neutrophils (%) (Auto) 86.9 % (16.0-70.0) Lymphocytes (%) (Auto) 4.8 % (9.0-44.0) Basophils (%) (Auto) 2.9 % (0.0-2.0) Lymphocytes # (Auto) 0.3 TH/MM3 (1.0-4.8) Creatinine 0.38 MG/DL (0.60-1.30) Albumin 2.9 GM/DL (3.4-5.0) Calcium Level 8.3 MG/DL (8.5-10.1) Urine Specific Corn[place] GREATER THAN 1.035 Urine Ketones 80 OR GREATER mg/dL (NEG) Last 24 hours Impressions Lower Extremity Ultrasound 02/14/17 1025 Signed Impressions: Service Date/Time: Tuesday, February 14, 2017 11:26 - CONCLUSION: 1. No sonographic evidence for lower extremity DVT. Omer Mcdonnell MD Chest X-Ray 02/14/17 1020 Signed Impressions: Service Date/Time: Tuesday, February 14, 2017 11:01 - CONCLUSION: 1. No evidence of acute cardiopulmonary process. 2. Diffuse bone metastases. Patricio Irwin MD Abdomen/Pelvis CT 02/14/17 1020 Signed Impressions: Service Date/Time: Tuesday, February 14, 2017 11:09 - CONCLUSION: 1. Enlarging pulmonary nodules. 2. New small bilateral pleural effusions. 3. Retroperitoneal and deep pelvic lymphadenopathy; unchanged. 4. Diffuse bone metastases. 5. No other evidence of acute process. Patricio Irwin MD Differential Diagnosis Leg swelling, abdominal pains, nausea: Gastroenteritis versus metabolic issues versus dehydration versus obstruction versus other acute intra-abdominal processes, CHF versus dependent edema versus anasarca Narrative Course Patient was nauseous in the ER and was given several medications for nausea, however he did not have any vomiting. His lab work did not show significant dehydration or metabolic issues. Ultrasound of legs does not show any signs of acute DVT. CAT scan of the abdomen was fairly unremarkable for any signs of acute intra-abdominal processes. He has several findings but they're all chronic. Vital signs remained stable in the ER. My plan would beat at this point to release him with further symptomatic relief or nausea and vomiting and have him follow-up with his oncologist. Return for worsening in symptoms as necessary. The plan has been discussed with him and he states understanding. Diagnosis Primary Impression: Nausea Additional Impression: Chronic abdominal pain Med/Other Pt SpecificInfo: Prescription(s) given Scripts Promethazine (Phenergan) 25 Mg Tablet 25 MG PO Q6H Y for NAUSEA OR VOMITING, #10 TAB 0 Refills Prov: Kvng Be MD 02/14/17 Disposition: 01 DISCHARGE HOME Condition: Stable Kvng Be MD Feb 14, 2017 10:25
[2017-02-14] MEDS ORDERED: ONDANSETRON HCL 4 MG/2 ML VIAL IV PUSH ONE (10:30)
[2017-02-14] MEDS ORDERED: SODIUM CHLORIDE 0.9% FLUSH 10 ML FLUSH IV FLUSH PRN (10:30)
[2017-02-14 10:35] LABS: AUTOMATED NEUTROPHIL # 6.3 TH/MM3 (1.8-7.7); BASOPHIL # 0.2 TH/MM3 (0-0.2); BASOPHIL % 2.9 % (0.0-2.0); EOSINOPHIL % 0.1 % (0.0-4.0); HEMATOCRIT 25.6 % (39.0-51.0); HEMOGLOBIN 8.2 GM/DL (13.0-17.0); LYMPH % 4.8 % (9.0-44.0); LYMPHOCYTE # 0.3 TH/MM3 (1.0-4.8); MEAN CELL VOLUME 77.8 FL (80.0-100.0); MEAN CORPUSCULAR HEMOGLOBIN 24.8 PG (27.0-34.0); MEAN CORPUSCULAR HGB CONC 31.9 % (32.0-36.0); MEAN PLATELET VOLUME 6.5 FL (7.0-11.0); MONO % 5.3 % (0.0-8.0); MONOCYTE # 0.4 TH/MM3 (0-0.9); NEUT % 86.9 % (16.0-70.0); PLATELET COUNT 519 TH/MM3 (150-450); RED BLOOD COUNT 3.29 MIL/MM3 (4.50-5.90); RED CELL DISTRIBUTION WIDTH 22.1 % (11.6-17.2); WHITE BLOOD COUNT 7.2 TH/MM3 (4.0-11.0)
[2017-02-14 10:44] LABS: CHLORIDE 101 MEQ/L (98-107); SODIUM (NA) 136 MEQ/L (136-145)
[2017-02-14 10:47] LABS: ALBUMIN 2.9 GM/DL (3.4-5.0); BICARBONATE 24.9 MEQ/L (21.0-32.0); CALCIUM 8.3 MG/DL (8.5-10.1); LIPASE 73 U/L (73-393)
[2017-02-14 10:48] LABS: BLOOD UREA NITROGEN 13 MG/DL (7-18); GLUCOSE,RANDOM 101 MG/DL (74-106)
[2017-02-14 10:50] LABS: ALT (GPT) 12 U/L (12-78); AST (GOT) 21 U/L (15-37)
[2017-02-14 10:51] LABS: CREATININE 0.38 MG/DL (0.60-1.30); GLOMERULAR FILTRATION RATE 231 ML/MIN (>89)
[2017-02-14 10:52] LABS: TOTAL BILIRUBIN ADULT 0.6 MG/DL (0.2-1.0); TOTAL PROTEIN 7.4 GM/DL (6.4-8.2)
[2017-02-14 10:53] LABS: ALKALINE PHOSPHATASE 91 U/L (45-117)
[2017-02-14 11:06] VITALS: BP 157/86; PULSE 87; RESP 18; O2SAT 98
[2017-02-14] MEDS ORDERED: IOHEXOL 350 MG/ML 10 ML VIAL (for RAD DIAG) IVCONTRAST ONE (11:27)
--- NOTE | 2017-02-14 11:40 | RADRPT ---
EXAM DATE/TIME: 02/14/2017 11:01 [facility] COMPARISON: No previous studies available for comparison. INDICATIONS : Chest discomvort, nausea, bilateral extremity swelling. MEDICAL HISTORY : Arthritis. Osteoarthritis. Prostate CA with bone metastases. Chemotherapy. Radiation therapy. SURGICAL HISTORY : Tonsillectomy. ENCOUNTER: Initial ACUITY: 3 days PAIN SCORE: 8/10 LOCATION: Bilateral chest FINDINGS: A single view of the chest demonstrates the lungs to be hypoaerated. There is no evidence of consolid ating airspace disease. There are no suspicious nodular densities. Multiple blastic bone metastases are noted. Heart and mediastinal structures are unremarkable. CONCLUSION: 1. No evidence of acute cardiopulmonary process. 2. Diffuse bone metastases. Patricio Irwin MD on February 14, 2017 at 11:36 Board Certified Radiologist. This report was verified electronically.
--- NOTE | 2017-02-14 11:52 | RADRPT ---
EXAM DATE/TIME: 02/14/2017 11:09 [facility] COMPARISON: CT ABDOMEN & PELVIS W CONTRAST, December 30, 2016, 20:07. INDICATIONS : Nausea without vomiting. Left abdominal pain. IV CONTRAST: 90 cc Omnipaque 350 (iohexol) IV ORAL CONTRAST: No oral contrast ingested. RADIATION DOSE: 13.92 CTDIvol (mGy) MEDICAL HISTORY : Carcinoma, prostate. Metastatic, bone. SURGICAL HISTORY : None. ENCOUNTER: Initial ACUITY: 4 - 6 days PAIN SCALE: 6/10 LOCATION: Left lateral TECHNIQUE: Volumetric scanning of the abdomen and pelvis was performed. Using automated exposure control and ad justment of the mA and/or kV according to patient size, radiation dose was kept as low as reasonably achievable to obtain optimal diagnostic quality images. DICOM format image data is available electro nically for review and comparison. FINDINGS: LOWER LUNGS: Nodules in both lung bases is enlarged. There is a bilobed nodule in the left base measuring 1.1 x 1. 8 cm in size. It previously measured 0.7 x 1.4 cm in size. Small bilateral effusions have developed. LIVER: Homogeneous density without lesion. There is no dilation of the biliary tree. No calcified gallston es. SPLEEN: Normal size without lesion. PANCREAS: Within normal limits. KIDNEYS: Normal in size and shape. There is no mass, stone or hydronephrosis. Tiny calculus measuring 2 mm is identified in the lower pole of the left kidney. ADRENAL GLANDS: Within normal limits. VASCULAR: There is no aortic aneurysm. BOWEL/MESENTERY: Mild rectal wall thickening and perirectal fat infiltration is again noted and has not significant ch anged. The stomach, small bowel, and colon otherwise demonstrate no acute abnormality. There is no f ree intraperitoneal air or fluid. ABDOMINAL WALL: Within normal limits. RETROPERITONEUM: Left-sided para-aortic and right sided deep pelvic lymphadenopathy are again noted and not significan tly changed in size. BLADDER: Generalized wall thickening is noted. REPRODUCTIVE: Calcific deposits are identified in the prostate gland. INGUINAL: There is no lymphadenopathy or hernia. MUSCULOSKELETAL: Numerous metastatic deposits are again identified throughout the osseous system. CONCLUSION: 1. Enlarging pulmonary nodules. 2. New small bilateral pleural effusions. 3. Retroperitoneal and deep pelvic lymphadenopathy; unchanged. 4. Diffuse bone metastases. 5. No other evidence of acute process. Patricio Irwin MD on February 14, 2017 at 11:40 Board Certified Radiologist. This report was verified electronically.
[2017-02-14 11:56] VITALS: BP 150/89; PULSE 88; RESP 20; O2SAT 96
[2017-02-14] MEDS ORDERED: PROMETHAZINE INJ 25 MG/ML VIAL IM ONE (12:00)
--- NOTE | 2017-02-14 12:13 | RADRPT ---
EXAM DATE/TIME: 02/14/2017 11:26 [facility] COMPARISON: No previous studies available for comparison. INDICATIONS : Bilateral leg pain. MEDICAL HISTORY : Osteoarthritis. Prostate cancer. Chemotherapy. Mets to bone. SURGICAL HISTORY : Tonsillectomy.Prostatectomy. ENCOUNTER: Initial ACUITY: 1 day PAIN SCORE: 1/10 LOCATION: Bilateral legs. TECHNIQUE: Venous ultrasound of the left and right leg was performed from the inguinal ligament to the proximal calf. Real-time, color Doppler and spectral tracing, compression and augmentation techniques were us ed. FINDINGS: RIGHT LEG: There is normal compressibility of the deep venous system from the inguinal region to the proximal ca lf. No echogenic clot is seen in the lumen of the common femoral, femoral, popliteal, and posterior tibial veins. There is a normal response of the venous system to proximal and distal augmentation an d respiration. LEFT LEG: There is normal compressibility of the deep venous system from the inguinal region to the proximal ca lf. No echogenic clot is seen in the lumen of the common femoral, femoral, popliteal, and posterior tibial veins. There is a normal response of the venous system to proximal and distal augmentation an d respiration. CONCLUSION: 1. No sonographic evidence for lower extremity DVT. Omer Mcdonnell MD on February 14, 2017 at 12:10 Board Certified Radiologist. This report was verified electronically.
[2017-02-14 12:44] LABS: BILIRUBIN, URINE NEG (NEG); BLOOD, URINE NEG (NEG); GLUCOSE,URINE NEG (NEG); KETONE, URINE 80 OR GREATER mg/dL (NEG); NITRITE,URINE NEG (NEG); URINE LEUKOCYTE ESTERASE NEG (NEG)
[2017-02-14 12:45] LABS: URINE COLOR YELLOW (YELLW/STRAW)
[2017-02-14 12:48] LABS: SQUAMOUS EPITHELIAL CELL URINE 0-5 /hpf (0-5)
[2017-02-14] MEDS ORDERED: PROM25TA10 PO (13:00)
[2017-02-14 13:15] VITALS: BP 148/79; PULSE 80; RESP 17; O2SAT 96
== END 2017-02-14 14:03 | disposition home or self-care (01) ==
LOC: PHED 09:55
DX: R11.0 Nausea (principal); R10.9 Unspecified abdominal pain; G89.29 Other chronic pain; R91.1 Solitary pulmonary nodule; J90 Pleural effusion, not elsewhere classified; R59.1 Generalized enlarged lymph nodes; C61 Malignant neoplasm of prostate; C79.51 Secondary malignant neoplasm of bone; F41.9 Anxiety disorder, unspecified
CPT/HCPCS: 71010; 74177; 80053; 81001; 83690; 83880; 85025; 93970; 96372; 96374; 99285; J2405; J2550; Q9967

== ENCOUNTER 2017-03-19 01:53 | Emergency (ER) | payer MEDICARE ==
[~2017-03-19] VITALS: Ht 188 cm; Wt 83.4 kg
[~2017-03-19 01:53] MED LIST changes: -CANA10002 RECTAL; -CENTCHW4 CHEW; -FERR325T18 PO; +MEGE40TA PO; -OMEP40CA2 PO; +ONDA4TAB7 SL; +PROM25TA10 PO; -STOOTAB PO
[2017-03-19 02:01] VITALS: BP 130/94; PULSE 102; RESP 12; TEMP 97.9; O2SAT 93
[2017-03-19] MEDS ORDERED: MULTTAB67 PO (02:22)
[2017-03-19] MEDS ORDERED: ENZA40CA PO (02:22)
--- NOTE | 2017-03-19 02:40 | PD ---
HPI Chief Complaint: Respiratory Symptoms Time Seen by Provider: 02:37 Travel History International Travel<30 days: No Contact w/Intl Traveler<30days: No Traveled to known affect area: No History of Present Illness HPI 61-year-old with metastatic prostate cancer since to the emergency department for one day of progressive worsening shortness of breath and yellow red phlegm production. Patient finished 6 rounds of chemotherapy February 26. Patient is in the care of oncologist Dr. Palmer Marsh (metastatic high risk carcinoma palliative cool antigen blockade flutamide and Lupron staging scans extensive metastatic disease to axial skeleton restaging CT CAPD) scan disease progression 2016 started on docetaxel lupron and zometa; MRI 8x9mm brain met with vasogenic edema; candidate for third line treatment). PFSH Past Medical History Narrative Medical Metastatic high risk prostate carcinoma, anxiety depression, arthritis, gastric ulcer disease, alcohol use, radiation therapy, radiation proctitis, right occipital brain metastasis, lower GI bleed, multi cor prostate biopsy; nurse notes reviewed Arthritis: Yes (KNEES) Anxiety: Yes Depression: Yes Cancer: Yes (prostate with bony mets) Cardiovascular Problems: No Chemotherapy: Yes (FINISHED CHEMO: 02/23/17) Diabetes: No Diminished Hearing: No Endocrine: No Genitourinary: Yes Hiatal Hernia: No Immune Disorder: No Musculoskeletal: No Neurologic: No Psychiatric: Yes Reproductive: No Respiratory: No Immunizations Current: Yes Radiation Therapy: Yes (15 tx) Shingles: Yes Thyroid Disease: No Tetanus Vaccination: > 5 Years Influenza Vaccination: No Past Surgical History Genitourinary Surgery: Yes (PROSTATE BIOPSY) Oral Surgery: Yes (tonsilectomy) Tonsillectomy: Yes Other Surgery: Yes Social History Alcohol Use: No (QUIT 2016) Tobacco Use: No (NEVER) Substance Use: No Allergies-Medications (Allergen,Severity, Reaction): Coded Allergies: peanut (Verified Allergy, Severe, Hives, 03/19/17) Reported Meds & Prescriptions Reported Meds & Active Scripts Active Phenergan (Promethazine HCl) 25 Mg Tablet 25 Mg PO Q6H PRN Reported Multiple Vitamin 1 Tab 1 Tab PO DAILY Xtandi (Enzalutamide) 40 Mg Cap 160 Mg PO DAILY Megestrol (Megestrol Acetate) 40 Mg Tab 40 Mg PO BID Ondansetron Odt 4 Mg Tab 4 Mg SL Q6HR PRN Morphine ER (Morphine Sulfate) 15 Mg Tab 15 Mg PO BID PRN Gabapentin 100 Mg Cap 100 Mg PO BID Review of Systems Except as stated in HPI: all other systems reviewed are Neg Physical Exam Narrative GENERAL: SKIN: Warm and dry. HEAD: Normocephalic. EYES: No scleral icterus. No injection or drainage. NECK: Supple, trachea midline. No JVD or lymphadenopathy. CARDIOVASCULAR: Regular rate and rhythm without murmurs, gallops, or rubs. RESPIRATORY: Breath sounds equal bilaterally. No accessory muscle use. GASTROINTESTINAL: Abdomen soft, non-tender, nondistended. MUSCULOSKELETAL: No cyanosis, or edema. BACK: Nontender without obvious deformity. No CVA tenderness. Data Data Last Documented VS Vital Signs Date Time Temp Pulse Resp B/P (MAP) Pulse Ox O2 Delivery O2 Flow Rate FiO2 03/19/17 05:11 03/19/17 04:09 98.1 91 18 98 Room Air Orders Orders ^ Saline Lock (03/19/17 02:37) Complete Blood Count With Diff (03/19/17 02:37) Basic Metabolic Panel (Bmp) (03/19/17 02:37) B-Type Natriuretic Peptide (03/19/17 02:37) Act Partial Throm Time (Ptt) (03/19/17 02:37) Prothrombin Time / Inr (Pt) (03/19/17 02:37) Magnesium (Mg) (03/19/17 02:37) Troponin I (03/19/17 02:37) Blood Culture (03/19/17 02:37) Iv Access Insert/Monitor (03/19/17 02:37) Electrocardiogram (03/19/17 02:37) Ecg Monitoring (03/19/17 02:37) Oximetry (03/19/17 02:37) Oxygen Administration (03/19/17 02:37) Chest, Single Ap (03/19/17 02:37) Sodium Chloride 0.9% Flush (Ns Flush) (03/19/17 02:45) Albuterol Neb (Albuterol Neb) (03/19/17 02:45) Sodium Chlorid 0.9% 500 Ml Inj (Ns 500 M (03/19/17 02:45) Ct Pulmonary Angiogram (03/19/17 ) Lactic Acid (03/19/17 02:42) Iohexol 350 Inj (Omnipaque 350 Inj) (03/19/17 04:10) Guaifenesin Liq (Robitussin Liq) (03/19/17 04:45) Red Blood Cells (Rbc) (03/19/17 04:55) Blood Product Administration (03/19/17 04:55) Sodium Chlor 0.9% 250 Ml Inj (Ns 250 Ml (03/19/17 05:00) Type And Screen (03/19/17 04:55) Labs Laboratory Tests Test 03/19/17 02:50 White Blood Count 7.0 TH/MM3 Red Blood Count 3.21 MIL/MM3 Hemoglobin 8.2 GM/DL Hematocrit 24.9 % Mean Corpuscular Volume 77.8 FL Mean Corpuscular Hemoglobin 25.5 PG Mean Corpuscular Hemoglobin Concent 32.8 % Red Cell Distribution Width 21.8 % Platelet Count 422 TH/MM3 Mean Platelet Volume 6.5 FL Neutrophils (%) (Auto) 81.8 % Lymphocytes (%) (Auto) 5.4 % Monocytes (%) (Auto) 11.6 % Eosinophils (%) (Auto) 0.7 % Basophils (%) (Auto) 0.5 % Neutrophils # (Auto) 5.8 TH/MM3 Lymphocytes # (Auto) 0.4 TH/MM3 Monocytes # (Auto) 0.8 TH/MM3 Eosinophils # (Auto) 0.0 TH/MM3 Basophils # (Auto) 0.0 TH/MM3 CBC Comment DIFF FINAL Differential Comment Prothrombin Time 11.4 SEC Prothromb Time International Ratio 1.1 RATIO Activated Partial Thromboplast Time 46.8 SEC Blood Urea Nitrogen 14 MG/DL Creatinine 0.39 MG/DL Random Glucose 99 MG/DL Calcium Level 8.3 MG/DL Magnesium Level 2.2 MG/DL Sodium Level 131 MEQ/L Potassium Level 4.3 MEQ/L Chloride Level 99 MEQ/L Carbon Dioxide Level 24.8 MEQ/L Anion Gap 7 MEQ/L Estimat Glomerular Filtration Rate 224 ML/MIN Lactic Acid Level 1.0 mmol/L Troponin I LESS THAN 0.02 NG/ML B-Type Natriuretic Peptide 16 PG/ML MDM Medical Decision Making Medical Screen Exam Complete: Yes Emergency Medical Condition: Yes Medical Record Reviewed: Yes Interpretation(s) EKG: Normal sinus rhythm rate [address] elevation injury pattern or ectopy noted Differential Diagnosis Dyspnea, pneumonia, PE, anemia, worsening metastatic prostate cancer Narrative Course IV access obtained specimens collected and sent for resulting patient given IV fluids guaifenesin and albuterol [facility] Chest x-ray shows worsening pulmonary parenchymal metastatic disease and rib fracture with extensive bony metastases CBC is automated differential shows anemia hemoglobin 8.2 Chemistries are grossly within normal limits Lactic acid is 1.0, not elevated Troponin I is less than 0.02, not elevated and BNP is [address] pulmonary angiogram --study resulted and shows extensive pulmonary parenchymal metastatic disease with large mediastinal adenopathy and right bronchus lesion with partial obstruction and impression on the superior vena cava. This is discussed extensively with the patient with concern for need for admission for further acute evaluation by oncologist. Patient's case discussed with on-call oncologist Dr. Contreras he recommends patient be admitted for observation for red blood cell transfusion 1-2 units however patient does not want to stay recommends at least one unit transfusion of packed cells and close follow-up with Dr. Marsh patient's oncologist. This is discussed in detail with patient patient refuses to stay for any further intervention blood transfusions and states he will not be admitted but will try to keep an appointment on Sunday with his oncologist but is aware of the need to follow-up sooner if possible. Patient is observed risk of acute worsening of his condition including near syncope syncope arrhythmia and sudden . Patient states he does not want to stay and will follow up only as an outpatient stating he understands the risks and benefits of leaving versus staying as recommended. Patient demonstrates increased work of breathing with exertion. Physician Communication Physician Communication call placed to Dr Debra Marsh --discussed with DR Rowell --recommends 1-2 u RBC transfusion admit to [facility] oncology floor with consult to Dr Marsh --if patient refuses 1 unit prbc's and opt follow up with Dr Marsh as soon as possible Diagnosis Primary Impression: Prostate cancer metastatic to lung Additional Impressions: Prostate cancer metastatic to bone Anemia Left against medical advice Admitting Information Admitting Physician Requests: Observation Disposition: 07 AGAINST MEDICAL ADVICE Condition: Stable Sandra Mariee MD Mar 19, 2017 02:40
[2017-03-19] MEDS ORDERED: RESP: ALBUTEROL 2.5 MG/3 ML NEB (SCH) NEB ONE (02:45)
[2017-03-19] MEDS ORDERED: SODIUM CHLORIDE 0.9% FLUSH 10 ML FLUSH IVF PRN (02:45)
[2017-03-19] MEDS ORDERED: SODIUM CHLORID 0.9% 500 ML INJ 500 ML IV ONE (02:45)
[2017-03-19 03:06] LABS: AUTOMATED NEUTROPHIL # 5.8 TH/MM3 (1.8-7.7); BASOPHIL % 0.5 % (0.0-2.0); EOSINOPHIL % 0.7 % (0.0-4.0); HEMATOCRIT 24.9 % (39.0-51.0); HEMOGLOBIN 8.2 GM/DL (13.0-17.0); LYMPH % 5.4 % (9.0-44.0); LYMPHOCYTE # 0.4 TH/MM3 (1.0-4.8); MEAN CELL VOLUME 77.8 FL (80.0-100.0); MEAN CORPUSCULAR HEMOGLOBIN 25.5 PG (27.0-34.0); MEAN CORPUSCULAR HGB CONC 32.8 % (32.0-36.0); MEAN PLATELET VOLUME 6.5 FL (7.0-11.0); MONO % 11.6 % (0.0-8.0); MONOCYTE # 0.8 TH/MM3 (0-0.9); NEUT % 81.8 % (16.0-70.0); PLATELET COUNT 422 TH/MM3 (150-450); RED BLOOD COUNT 3.21 MIL/MM3 (4.50-5.90); RED CELL DISTRIBUTION WIDTH 21.8 % (11.6-17.2)
[2017-03-19 03:12] LABS: CHLORIDE 99 MEQ/L (98-107); SODIUM (NA) 131 MEQ/L (136-145)
[2017-03-19 03:14] LABS: CALCIUM 8.3 MG/DL (8.5-10.1)
[2017-03-19 03:15] LABS: BICARBONATE 24.8 MEQ/L (21.0-32.0); BLOOD UREA NITROGEN 14 MG/DL (7-18); GLUCOSE,RANDOM 99 MG/DL (74-106); MAGNESIUM 2.2 MG/DL (1.5-2.5)
[2017-03-19 03:18] LABS: CREATININE 0.39 MG/DL (0.60-1.30); GLOMERULAR FILTRATION RATE 224 ML/MIN (>89)
[2017-03-19 03:23] LABS: TROPONIN I LESS THAN 0.02 NG/ML (0.02-0.05)
--- NOTE | 2017-03-19 03:40 | RADRPT ---
EXAM DATE/TIME: 03/19/2017 03:10 [facility] COMPARISON: No previous studies available for comparison. INDICATIONS : Shortness of breath and chest discomfort, right side. MEDICAL HISTORY : Arthritis. Osteoarthritis. Prostate CA with bone metastases. Chemotherapy. Radiation therapy. SURGICAL HISTORY : Tonsillectomy. ENCOUNTER: Initial ACUITY: 1 day PAIN SCORE: 0/10 LOCATION: Bilateral chest FINDINGS: There are widespread bone metastases and enlarging pulmonary nodules compared with February 14. There is also mediastinal adenopathy. No effusion. No pneumothorax. Basilar atelectasis. CONCLUSION: 1. Worsening pulmonary parenchymal metastatic disease since February 14. Widespread bone metastasis w ith pathologic fracture left lateral sixth rib. Mild basilar atelectasis. Dl Henry MD on March 19, 2017 at 3:29 Board Certified Radiologist. This report was verified electronically.
[2017-03-19 04:03] LABS: INTERNATIONAL NORMALIZED RATIO 1.1 RATIO; PROTHROMBIN TIME - PATIENT 11.4 SEC (9.8-11.6)
[2017-03-19 04:09] VITALS: BP 135/75; PULSE 91; RESP 18; TEMP 98.1; O2SAT 98
[2017-03-19] MEDS ORDERED: IOHEXOL 350 MG/ML 10 ML VIAL (for RAD DIAG) IVCONTRAST ONE (04:10)
--- NOTE | 2017-03-19 04:28 | RADRPT ---
EXAM DATE/TIME: 03/19/2017 03:55 This report includes an Addendum and supersedes previous reports for this exam. [facility] COMPARISON: No previous studies available for comparison. INDICATIONS : Shortness of breath. IV CONTRAST: 75 cc Omnipaque 350 (iohexol) IV RADIATION DOSE: 15.49 CTDIvol (mGy) MEDICAL HISTORY : Carcinoma, prostate. SURGICAL HISTORY : ENCOUNTER: Initial ACUITY: 1 day PAIN SCALE: 8/10 LOCATION: chest TECHNIQUE: Volumetric scanning of the chest was performed using a pulmonary embolism protocol MIP images were re constructed. Using automated exposure control and adjustment of the mA and/or kV according to patien t size, radiation dose was kept as low as reasonably achievable to obtain optimal diagnostic quality images. DICOM format image data is available electronically for review and comparison. Follow-up recommendations for detected pulmonary nodules are based at a minimum on nodule size and pa tient risk factors according to Fleischner Society Guidelines. FINDINGS: Innumerable pulmonary nodules present characteristic of pulmonary parenchymal metastatic disease. There is extensive mediastinal adenopathy measuring up to 6.6 cm the precarinal region. Superior vena cava is severely effaced but not occluded. Endobronchial lesion right mainstem bronchus with partial obstruction. There is widespread bony metastatic disease with pathologic fracture of the left sixth rib laterally. No significant pleural effusion. Small pericardial effusion. No acute findings in the upper abdomen. CONCLUSION: 1. Widespread pulmonary parenchymal and bony metastatic disease. Extensive mediastinal adenopathy. 2. Endobronchial lesion in the right mainstem bronchus resulting in partial obstruction of the right mainstem bronchus. 3. Impression on the superior vena cava without complete obstruction. Dl Henry MD on March 19, 2017 at 4:20 Board Certified Radiologist. This report was verified electronically. ADDENDUM: No filling defects identified to suggest pulmonary embolic disease. Dl Henry MD on March 19, 2017 at 6:50 Board Certified Radiologist. This report was verified electronically.
[2017-03-19] MEDS ORDERED: guaiFENesin SOLUTION 200 MG/10 ML CUP PO ONE (04:45)
[2017-03-19] MEDS ORDERED: SODIUM CHLOR 0.9% 250 ML INJ 250 ML IV ONE (05:00)
--- NOTE | 2017-03-19 19:40 | EKG ---
Date Performed: 03/19/2017 Time Performed: 03:02:21 PTAGE: 61 years EKG: Sinus rhythm POSSIBLE LEFT ATRIAL ENLARGEMENT Since previous tracing, no significant change noted BORDERLINE ECG PREVIOUS TRACING : 01/01/2017 04.27.12 DOCTOR: Rubén Concepcion Interpretating Date/Time 03/19/2017 19:38:39
== END 2017-03-19 05:23 | disposition left against medical advice (07) ==
LOC: PHED 01:53
DX: C78.00 Secondary malignant neoplasm of unspecified lung (principal); C79.51 Secondary malignant neoplasm of bone; C61 Malignant neoplasm of prostate; D64.9 Anemia, unspecified; R94.31 Abnormal electrocardiogram [ECG] [EKG]; C79.31 Secondary malignant neoplasm of brain; M17.0 Bilateral primary osteoarthritis of knee; F32.9 Major depressive disorder, single episode, unspecified
CPT/HCPCS: 71045; 71275; 80048; 83605; 83735; 83880; 84484; 85025; 85610; 85730; 87040; 93005; 94664; 96360; 99285; J7040; J7613; Q9967

== ENCOUNTER 2017-03-21 23:53 | Inpatient (IN) | payer MEDICARE ==
[~2017-03-21] VITALS: Ht 182.9 cm; Wt 86.8 kg
[~2017-03-21 23:53] MED LIST changes: +ENZA40CA PO; +MULTTAB67 PO; -PROC10TA PO
[2017-03-22] VITALS (106 sets, daily range): BP systolic 70–186; BP diastolic 60–112; PULSE 82–124; RESP 0–31; TEMP 96.6–98.6; O2SAT 52–100
[2017-03-22] MEDS ORDERED: SODIUM CHLOR 0.9% 250 ML INJ 250 ML IV ONE
--- NOTE | 2017-03-22 00:08 | PD ---
HPI Chief Complaint: GI Complaint Time Seen by Provider: 23:57 Travel History International Travel<30 days: No Contact w/Intl Traveler<30days: No Traveled to known affect area: No History of Present Illness HPI The patient is a 61-year-old male with a history of metastatic prostate cancer. The patient is followed by Dr. Connell for oncology. He finished 6 rounds of chemotherapy on February 26. He was coughing up blood on the of this month and today. He is not known to have lesions in the lung. MRI of the brain showed an 89 mm brain metastasis with vasogenic edema. The CBC on the showed a hemoglobin of 8.2 and hematocrit of 24.9. The chest x-ray showed worsening pulmonary parenchymal metastatic disease since February 14 and widespread metastases with pathologic fracture in the left lateral sixth rib. Dr. Mariee wanted to admit the patient but he signed out AMA on the of this month. A CTA scan to rule out pulmonary embolus was negative on the when the patient had the same symptoms. The patient is a full code. PFSH Past Medical History Arthritis: Yes (KNEES) Anxiety: Yes Depression: Yes Cancer: Yes (prostate with bony mets) Cardiovascular Problems: No Chemotherapy: Yes (FINISHED CHEMO: 02/23/17) Diabetes: No Diminished Hearing: No Endocrine: No Genitourinary: Yes Hiatal Hernia: No Immune Disorder: No Musculoskeletal: No Neurologic: No Psychiatric: Yes Reproductive: No Respiratory: No Immunizations Current: Yes Radiation Therapy: Yes (15 tx) Shingles: Yes Thyroid Disease: No Past Surgical History Genitourinary Surgery: Yes (PROSTATE BIOPSY) Oral Surgery: Yes (tonsilectomy) Tonsillectomy: Yes Other Surgery: Yes Social History Alcohol Use: No (QUIT 2016) Tobacco Use: No (NEVER) Substance Use: No Allergies-Medications (Allergen,Severity, Reaction): Coded Allergies: peanut (Verified Allergy, Severe, Hives, 03/19/17) Reported Meds & Prescriptions Reported Meds & Active Scripts Active Phenergan (Promethazine HCl) 25 Mg Tablet 25 Mg PO Q6H PRN Reported Multiple Vitamin 1 Tab 1 Tab PO DAILY Xtandi (Enzalutamide) 40 Mg Cap 160 Mg PO DAILY Megestrol (Megestrol Acetate) 40 Mg Tab 40 Mg PO BID Ondansetron Odt 4 Mg Tab 4 Mg SL Q6HR PRN Morphine ER (Morphine Sulfate) 15 Mg Tab 15 Mg PO BID PRN Gabapentin 100 Mg Cap 100 Mg PO BID Review of Systems Except as stated in HPI: all other systems reviewed are Neg Physical Exam Narrative GENERAL: The patient is alert, oriented 3 in moderate apparent distress with his hemoptysis and chest discomfort and shortness of breath. His vital signs show blood pressure 147/87 with heart rate of 120 and respirations of 25 and 86 % oximetry on room air. SKIN: Focused skin assessment warm/dry. HEAD: Atraumatic. Normocephalic. EYES: Pupils equal and round. No scleral icterus. No injection or drainage. ENT: No nasal bleeding or discharge. Mucous membranes pink and moist. NECK: Trachea midline. No JVD. CARDIOVASCULAR: Regular rate and rhythm. No murmur appreciated. RESPIRATORY: No accessory muscle use. GERD rhonchi heard bilaterally.. Breath sounds equal bilaterally. GASTROINTESTINAL: Abdomen soft, non-tender, nondistended. Hepatic and splenic margins not palpable. MUSCULOSKELETAL: No obvious deformities. No clubbing. No cyanosis. No edema. NEUROLOGICAL: Awake and alert. No obvious cranial nerve deficits. Motor grossly within normal limits. Normal speech. PSYCHIATRIC: Appropriate mood and affect; insight and judgment normal. Data Data Last Documented VS Vital Signs Date Time Temp Pulse Resp B/P (MAP) Pulse Ox O2 Delivery O2 Flow Rate FiO2 03/22/17 00:35 115 22 138/88 (105) 88 Room Air 03/22/17 00:14 4.00 Orders Orders Complete Blood Count With Diff (03/21/17 23:57) Comprehensive Metabolic Panel (03/21/17 23:57) Arterial Blood Gas (Abg) (03/21/17 23:57) Urinalysis - C+S If Indicated (03/21/17 23:57) Magnesium (Mg) (03/21/17 23:57) Chest, Pa & Lat (03/21/17 23:57) Red Blood Cells (Rbc) (03/21/17 23:59) Blood Product Administration (03/21/17 23:59) Sodium Chlor 0.9% 250 Ml Inj (Ns 250 Ml (03/22/17 00:00) Type And Screen (03/21/17 23:59) Admit To Inpatient (03/22/17 ) Vital Signs (Adult) Q4H (03/22/17 01:36) Activity Oob With Assistance (03/22/17 01:36) Diet Regular Basic (03/22/17 Breakfast) Sodium Chloride 0.9% Flush (Ns Flush) (03/22/17 01:45) Sodium Chloride 0.9% Flush (Ns Flush) (03/22/17 09:00) Acetaminophen (Tylenol) (03/22/17 01:45) Ondansetron Inj (Zofran Inj) (03/22/17 01:45) Comprehensive Metabolic Panel (03/23/17 06:00) Complete Blood Count With Diff (03/23/17 06:00) Resp Oxygen Thierry C Titrat 1-4 L (03/22/17 ) Enoxaparin Inj (Lovenox Inj) (03/22/17 01:45) Naloxone Inj (Narcan Inj) (03/22/17 01:45) Docusate Sodium-Senna ([place]-Colace) (03/22/17 09:00) Magnesium Hydroxide Liq (Milk Of Magnesi (03/22/17 01:45) Sennosides (Senokot) (03/22/17 01:45) Bisacodyl Supp (Dulcolax Supp) (03/22/17 01:45) Lactulose Liq (Lactulose Liq) (03/22/17 01:45) Inpatient Certification (03/22/17 ) Gabapentin (Neurontin) (03/22/17 09:00) Megestrol (Megace) (03/22/17 09:00) Morphine Sr (Oramorph Sr) (03/22/17 01:45) (Nf) Enzalutamide (Xtandi) (03/22/17 09:00) Consult Medical Oncology (03/22/17 ) Admit Order (Ed Use Only) (03/22/17 01:39) Labs Laboratory Tests Test 03/22/17 00:17 03/22/17 00:35 White Blood Count 8.4 TH/MM3 Red Blood Count 3.69 MIL/MM3 Hemoglobin 9.0 GM/DL Hematocrit 28.3 % Mean Corpuscular Volume 76.7 FL Mean Corpuscular Hemoglobin 24.5 PG Mean Corpuscular Hemoglobin Concent 32.0 % Red Cell Distribution Width 21.8 % Platelet Count 604 TH/MM3 Mean Platelet Volume 7.0 FL Neutrophils (%) (Auto) 81.7 % Lymphocytes (%) (Auto) 6.4 % Monocytes (%) (Auto) 10.1 % Eosinophils (%) (Auto) 0.5 % Basophils (%) (Auto) 1.3 % Neutrophils # (Auto) 7.0 TH/MM3 Lymphocytes # (Auto) 0.5 TH/MM3 Monocytes # (Auto) 0.8 TH/MM3 Eosinophils # (Auto) 0.0 TH/MM3 Basophils # (Auto) 0.1 TH/MM3 CBC Comment AUTO DIFF Differential Comment AUTO DIFF CONFIRMED Platelet Estimate HIGH Platelet Morphology Comment NORMAL Ovalocytes 1+ Blood Urea Nitrogen 14 MG/DL Creatinine 0.52 MG/DL Random Glucose 128 MG/DL Total Protein 8.3 GM/DL Albumin 3.4 GM/DL Calcium Level 8.8 MG/DL Magnesium Level 2.3 MG/DL Alkaline Phosphatase 107 U/L Aspartate Amino Transf (AST/SGOT) 34 U/L Alanine Aminotransferase (ALT/SGPT) 12 U/L Total Bilirubin 0.4 MG/DL Sodium Level 131 MEQ/L Potassium Level 4.2 MEQ/L Chloride Level 98 MEQ/L Carbon Dioxide Level 25.1 MEQ/L Anion Gap 8 MEQ/L Estimat Glomerular Filtration Rate 161 ML/MIN Blood Gas Puncture Site RT RADIAL Blood Gas Patient Temperature 98.6 Blood Gas HCO3 24 mmol/L Blood Gas Base Excess 0.8 mmol/L Blood Gas Oxygen Saturation 91 % Arterial Blood pH 7.51 Arterial Blood Partial Pressure CO2 30 mmHG Arterial Blood Partial Pressure O2 59 mmHG Arterial Blood Oxygen Content 10.9 Vol % Arterial Blood Carboxyhemoglobin 1.8 % Arterial Blood Methemoglobin 0.6 % Blood Gas Hemoglobin 8.5 G/DL Blood Gas Inspired Oxygen 21 % MDM Medical Decision Making Medical Screen Exam Complete: Yes Emergency Medical Condition: Yes Medical Record Reviewed: Yes Interpretation(s) The blood gases on room air show pH 7.51, CO2 of 30, PO2 of 59 with O2 sat 91% on room air. The CBC shows a hemoglobin of 9.0 and hematocrit of 28.3 with 82% neutrophils but is otherwise unremarkable. The chest x-ray shows increasing elevation of the right hemidiaphragm possibly due to phrenic nerve involvement from known mediastinal tumor. Also noted is widespread bony metastases of the left lateral sixth rib fracture. The patient has pulmonary parenchymal metastatic disease which is known since February 14. This apparently has worsened. A repeat CTA to rule out pulmonary embolus was not done at this time because one was just done 2 days ago when the patient had the exact same symptoms. Differential Diagnosis Hemoptysis, hypoxemia, pulmonary embolus-unlikely, pneumonia, pneumothorax, metastatic prostate cancer Narrative Course The patient has hemoptysis. Pulmonary embolus is unlikely because a CTA was negative only 2 days ago with the same symptoms. The patient is now breathing comfortably, and it is 0130 in the morning and oxygenation on 2 L is 92% oximetry. Physician Communication Physician Communication I discussed the patient with Dr. Ramos, the patient will be admitted to her. Diagnosis Primary Impression: Hemoptysis Additional Impressions: Hypoxemia Prostate cancer metastatic to lung Admitting Information Admitting Physician Requests: Riley Shirley MD Mar 22, 2017 00:08
[2017-03-22 00:49] LABS: BASOPHIL # 0.1 TH/MM3 (0-0.2); BASOPHIL % 1.3 % (0.0-2.0); EOSINOPHIL % 0.5 % (0.0-4.0); HEMATOCRIT 28.3 % (39.0-51.0); LYMPH % 6.4 % (9.0-44.0); LYMPHOCYTE # 0.5 TH/MM3 (1.0-4.8); MEAN CELL VOLUME 76.7 FL (80.0-100.0); MEAN CORPUSCULAR HEMOGLOBIN 24.5 PG (27.0-34.0); MONO % 10.1 % (0.0-8.0); MONOCYTE # 0.8 TH/MM3 (0-0.9); NEUT % 81.7 % (16.0-70.0); PLATELET COUNT 604 TH/MM3 (150-450); RED BLOOD COUNT 3.69 MIL/MM3 (4.50-5.90); RED CELL DISTRIBUTION WIDTH 21.8 % (11.6-17.2); WHITE BLOOD COUNT 8.4 TH/MM3 (4.0-11.0)
[2017-03-22 00:58] LABS: CHLORIDE 98 MEQ/L (98-107); SODIUM (NA) 131 MEQ/L (136-145)
[2017-03-22 01:01] LABS: CALCIUM 8.8 MG/DL (8.5-10.1)
[2017-03-22 01:02] LABS: ALBUMIN 3.4 GM/DL (3.4-5.0); BICARBONATE 25.1 MEQ/L (21.0-32.0); BLOOD UREA NITROGEN 14 MG/DL (7-18); GLUCOSE,RANDOM 128 MG/DL (74-106); MAGNESIUM 2.3 MG/DL (1.5-2.5)
--- NOTE | 2017-03-22 01:02 | RADRPT ---
EXAM DATE/TIME: 03/22/2017 00:18 [facility] COMPARISON: CHEST SINGLE AP, March 19, 2017, 3:10. INDICATIONS : Coughing up blood. MEDICAL HISTORY : Arthritis. Osteoarthritis. Prostate CA with bone metastases. Chemotherapy. Radiation therapy. SURGICAL HISTORY : Tonsillectomy. ENCOUNTER: Initial ACUITY: 1 day PAIN SCORE: 0/10 LOCATION: Bilateral chest FINDINGS: PA and lateral views of the chest demonstrate right hemidiaphragm is progressively more elevated poss ibly related to tumor involvement of the phrenic nerve on the right. There is extensive mediastinal a denopathy. Innumerable lung nodules present. Widespread bony metastatic disease with left lateral six th rib fracture. Basilar atelectasis. CONCLUSION: 1. Increasing elevation of the right hemidiaphragm possibly due to phrenic nerve involvement from kno wn mediastinal tumor. Minimal basilar atelectasis. Dl Henry MD on March 22, 2017 at 0:58 Board Certified Radiologist. This report was verified electronically.
[2017-03-22 01:05] LABS: ALT (GPT) 12 U/L (12-78); AST (GOT) 34 U/L (15-37); CREATININE 0.52 MG/DL (0.60-1.30); GLOMERULAR FILTRATION RATE 161 ML/MIN (>89)
[2017-03-22 01:06] LABS: OVALOCYTES 1+ (NORMAL); TOTAL BILIRUBIN ADULT 0.4 MG/DL (0.2-1.0); TOTAL PROTEIN 8.3 GM/DL (6.4-8.2)
[2017-03-22 01:08] LABS: ALKALINE PHOSPHATASE 107 U/L (45-117)
[2017-03-22] MEDS ORDERED: MORPHINE SULFATE 15 MG CONTROLLED RELEASE TAB PO PRN (01:45)
[2017-03-22] MEDS ORDERED: SODIUM CHLORIDE 0.9% FLUSH 10 ML FLUSH IV FLUSH PRN ×3 (01:45→10:30)
[2017-03-22] MEDS ORDERED: LACTULOSE SYRUP 20 GM/30 ML CUP PO PRN ×2 (01:45→10:30)
[2017-03-22] MEDS ORDERED: ONDANSETRON HCL 4 MG/2 ML VIAL IVP PRN (01:45)
[2017-03-22] MEDS ORDERED: NALOXONE HCL 0.4 MG/ML AMP IV PUSH PRN (01:45)
[2017-03-22] MEDS ORDERED: ACETAMINOPHEN 325 MG TAB PO PRN (01:45)
[2017-03-22] MEDS ORDERED: ENOXAPARIN SODIUM 40 MG/0.4 ML SYRINGE SQ SCH (01:45)
[2017-03-22] MEDS ORDERED: MAGNESIUM HYDROXIDE SUSP 30 ML CUP PO PRN ×2 (01:45→10:30)
[2017-03-22] MEDS ORDERED: SENNOSIDES 8.6 MG TAB PO PRN ×2 (01:45→10:30)
[2017-03-22] MEDS ORDERED: BISACODYL 10 MG SUPP RECTAL PRN ×2 (01:45→10:30)
[2017-03-22] MEDS ORDERED: IOHEXOL 350 MG/ML 10 ML VIAL (for RAD DIAG) IVCONTRAST ONE (02:17)
--- NOTE | 2017-03-22 02:27 | RADRPT ---
EXAM DATE/TIME: 03/22/2017 02:06 [facility] COMPARISON: No previous studies available for comparison. INDICATIONS : Hemoptysis. IV CONTRAST: 60 cc Omnipaque 350 (iohexol) IV RADIATION DOSE: 13.83 CTDIvol (mGy) MEDICAL HISTORY : Carcinoma, prostate. Metastatic, bone. SURGICAL HISTORY : None. ENCOUNTER: Initial ACUITY: 1 week PAIN SCALE: 0/10 LOCATION: chest TECHNIQUE: Volumetric scanning of the chest was performed using a pulmonary embolism protocol MIP images were re constructed. Using automated exposure control and adjustment of the mA and/or kV according to patien t size, radiation dose was kept as low as reasonably achievable to obtain optimal diagnostic quality images. DICOM format image data is available electronically for review and comparison. Follow-up recommendations for detected pulmonary nodules are based at a minimum on nodule size and pa tient risk factors according to Fleischner Society Guidelines. FINDINGS: No filling defects to suggest pulmonary embolus. There is increasing obstruction of the right mainste m bronchus which is now nearly completely occluded proximally. There is also mucoid debris in the car inal region. Again seen is widespread pulmonary parenchymal or bony metastatic disease. This pathologic fracture o f left sixth rib laterally. Trace pleural fluid. Inferior vena cava compressed without obstruction. CONCLUSION: 1. Negative for pulmonary embolus. 2. Near-complete obstruction of the right mainstem bronchus. 3. Massive mediastinal adenopathy, pulmonary parenchymal metastatic disease and widespread bony metas tases. Dl Henry MD on March 22, 2017 at 2:21 Board Certified Radiologist. This report was verified electronically.
[2017-03-22] MEDS ORDERED: HYOSCYAMINE 0.125 MG TAB PO PRN (04:00)
[2017-03-22] MEDS ORDERED: MORPHINE SULFATE 15 MG CONTROLLED RELEASE TAB PO ONE (04:00)
[2017-03-22] MEDS ORDERED: LORazepam 2 MG/ML VIAL IV PUSH ONE (05:15)
[2017-03-22 06:29] LABS: HEMATOCRIT 27.8 % (39.0-51.0); HEMOGLOBIN 9.1 GM/DL (13.0-17.0)
[2017-03-22] MEDS ORDERED: SODIUM BICARBONATE 8.4% INJ 50 MEQ/50 ML SYR IV PUSH ONE (07:00)
[2017-03-22] MEDS ORDERED: ROCURONIUM INJ 100 MG/10 ML VIAL IV ONE (07:00)
[2017-03-22] MEDS ORDERED: ETOMIDATE 40 MG/20 ML VIAL IV PUSH ONE (07:00)
[2017-03-22] MEDS ORDERED: ROCURONIUM INJ 50 MG/5 ML VIAL ONE (07:05)
[2017-03-22] MEDS ORDERED: NOREPINEPHRINE INJ 4 MG in SODIUM CHLOR 0.9% 250 ML INJ 246 ML IV PRN (07:15)
[2017-03-22] MEDS ORDERED: EPINEPHrine HCL (1:10,000) 1 MG/10 ML SYRINGE IV ONE (07:15)
[2017-03-22] MEDS ORDERED: TERBUTALINE INJ 1 MG/ML AMP SQ PRN (07:15)
[2017-03-22] MEDS: SODIUM CHLORIDE 0.9% FLUSH 10 ML FLUSH IV FLUSH SCH ×3 (07:31→21:33)
[2017-03-22] MEDS: MIDAZOLAM 100 MG/100 ML INJ 100 ML IV PRN ×3 (07:55→23:21)
[2017-03-22] MEDS: fentaNYL DRIP 250 ML IV PRN ×2 (08:38→19:30)
[2017-03-22] MEDS: GABAPENTIN 100 MG CAP PO SCH ×2 (09:00→21:33)
[2017-03-22] MEDS: MEGESTROL ACETATE 40 MG TAB PO SCH ×2 (09:00→21:33)
[2017-03-22] MEDS ORDERED: DOCUSATE SODIUM 50 MG/SENNA 8.6 MG TAB PO SCH (09:00)
[2017-03-22] MEDS: XTANDI 160 MG PO SCH (09:00)
--- NOTE | 2017-03-22 09:06 | PD.PROCEDR ---
Central Line Procedure REASON FOR PROCEDURE Central venous access PROCEDURE PERFORMED Central line placement: Right IJ CVL. Failed left IJ CVL CONSENT Informed consent for procedure was obtained from patient. The risks and benefits of the procedure were discussed to include but limited to bleeding, clot formation, infection, and even . ANESTHESIA Local injection of 1% Lidocaine DESCRIPTION OF THE PROCEDURE The patient was placed in supine, mild Trendelenburg position. The area was exposed and cleansed with ChloraPrep, times two. Large sterile drape was used to cover the patient, with the site exposed, under sterile conditions including cap, face mask, sterile gown, and sterile gloves. On single attempt, the introducer needle was inserted with negative pressure in syringe and venous flash was obtained. The guide wire was then advanced without any restriction and the needle was removed. The dilator was used without any complications. Using Seldinger technique the triple-lumen antibiotic coated catheter was advanced over the guide wire to a depth of 16 centimeters. The guide wire was removed. All ports were aspirated with dark venous blood return and flushed easily with sterile saline. All ports were capped. Antibiotic disc was placed around central line at puncture site. The central line was secured to the skin with two interrupted 2.0 silk sutures. The area was bandaged with sterile see- through central line bandage. Patient initially 3/10 or made with images needle into left IJ without success.Obtain but able to pass guidewire. Pressure was held for 5 minutes. No hematoma. Good air breath sounds auscultated bilaterally. RADIOLOGICAL DATA Ultrasound guidance was used to locate right internal jugular vein. Doppler/ color flow was used to confirm venous flow. COMPLICATIONS: No apparent complications ESTIMATED BLOOD LOSS: Less than [address] MD Mar 22, 2017 09:06
--- NOTE | 2017-03-22 09:11 | PD.PROCEDR ---
Procedure Note Procedure DATE: 03/22/2017 PROCEDURE: Orotracheal intubation INDICATION: Respiratory failure, hemoptysis DETAILS OF PROCEDURE The patient was placed in optimal position and preoxygenated with 100% FiO2 via bag valve mask. At the start oxygen saturation was 100%. The patient was administered 20 milligrams etomidate IV and 50 milligrams rocuronium IV. I entered the oropharynx with a size 4 laryngoscope blade and obtained a grade 3 view of the airway. On single attempt a size 8.0 cuffed endotracheal tube was passed through the vocal cords. Correct tube location was confirmed with end tidal CO2 detector and by auscultating over bilateral lung anne. The endotracheal tube was secured with adhesive tape at a depth of 24 cm at the lips. The patient was connected to the ventilator. The patient tolerated the procedure well without any apparent complications. Oxygen saturations were maintained greater than 95% all times. STAT chest x-ray pending at time of dictation. Wolfgang St MD Mar 22, 2017 09:11
[2017-03-22] MEDS ORDERED: LABETALOL HCL 100 MG/20 ML VIAL IV PUSH PRN (09:15)
[2017-03-22] MEDS ORDERED: CISATRACURIUM BESYLATE 20 MG/10 ML VIAL IV PUSH ONE (09:15)
--- NOTE | 2017-03-22 09:15 | PD.PROCEDR ---
Procedure Note Procedure DATE: 03/22/2017 Bronchoscopy/diagnostic and therapeutic: INDICATION: Gross hemoptysis CONSENT Informed consent for procedure was obtained from patient prior to intubation. DESCRIPTION OF THE PROCEDURE The patient was placed in supine position. ACV 15/500/12/100. Midazolam drip at 15 mg an hour and fentanyl drip at 350 mg an hour. Rocuronium 50 mg IV 1. I entered the 8.0 ET tube with fiberoptic bronchoscopy. At the end of ET tube noted to wish. Right main bronchus with large fibrinous mass unable to pass. No active bleeding. Attempted to flush with multiple aliquots normal saline without success. Forceps were attempted with no result remove large fibrinous mass currently not bleeding. Attempted to do advanced ET tube to left mainstem however mass moved along with ET tube and covered and despite multiple times.. Patient is currently paralyzed with adequate oxygenation. Duration is currently 100%. We'll keep in this position of the present time. ESTIMATED BLOOD LOSS: Minimal COMPLICATIONS: No apparent complications. STAT chest x-ray pending at time of dictation Wolfgang St MD Mar 22, 2017 09:15
--- NOTE | 2017-03-22 09:20 | PD.CONS ---
HPI Service Critical Care Medicine Consult Requested By [facility] physician Reason for Consult Gross hemoptysis/respiratory failure in a patient with prostate cancer with metastases to brain and bone Primary Care Physician Arvind Abrams DO History of Present Illness This is a 61-year-old male. Documented is full code. Date of admission 03/22/2017. 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 Personal history of alcohol abuse with cessation, depression/anxiety, osteoarthritis, gastroesophageal reflux disease, radiation proctitis, right occipital brain metastases 2017 and chronic steroid use and narcotic use. Patient presented to [facility] with a prolonged history of hemoptysis. Patient recently completed his sixth round of prostate chemotherapy with Dr. Marsh. His current present symptoms hemoptysis began prior to March 19. He actually left AMA from the hospital at this time CT pulmonary angiogram today revealed no central pulmonary embolus. There was however near obstruction of the right mainstem bronchus. Massive mediastinal adenopathy, pulmonary parenchymal metastatic disease and widespread bony metastases. [facility] desatur[facility]. Patient was emergently orotracheally intubated. Patient has a large fibrinous bloody mass in the right mainstem they currently comes to chronic Review of Systems ROS Limitations: Intubated Past Family Social History Allergies: Coded Allergies: peanut (Verified Allergy, Severe, Hives, 03/19/17) Past Medical History Depression/anxiety Osteoarthritis/osteoporosis Gastroesophageal reflux disease History of gastric ulcers on EGD 01/05 History of radiation proctitis with rectal ulcers 01/05 Right occipital brain metastases 2018 Metastatic prostate cancer Past Surgical History Prostate biopsy 2016 Reported Medications Promethazine 25 mg every 6 hours. When necessary nausea Enzalutamide 160 milligrams daily Morphine sulfate 15 milligrams twice a day Gabapentin 100 mg by mouth twice a day Megestrol 40 mg by mouth twice a day Ondansetron 4 mg by mouth every 6 hours. Nausea Active Ordered Medications Reviewed in EMR Family History Father with CVA age 85 .. Mother with osteoarthritis lives in [place]. Brother bipolar disorder. Social History Quit alcohol self-reported 02/03. Heavy drinker for 17 years. Denies substance abuse. No tobacco use defined Physical Exam Vital Signs Vital Signs Date Time Temp Pulse Resp B/P (MAP) Pulse Ox O2 Delivery O2 Flow Rate FiO2 03/22/17 08:00 102 17 144/98 (113) 100 03/22/17 07:47 106 11 186/112 (136) 97 03/22/17 07:45 104 19 175/105 (128) 96 03/22/17 07:42 102 12 178/104 (128) 99 03/22/17 07:40 102 14 166/104 (124) 97 03/22/17 07:37 102 19 161/100 (120) 94 03/22/17 07:35 102 20 159/98 (118) 97 03/22/17 07:32 106 20 133/86 (102) 100 03/22/17 07:29 110 12 138/86 (103) 100 03/22/17 07:27 114 20 146/88 (107) 100 03/22/17 07:24 122 17 103/67 (79) 52 03/22/17 07:22 118 31 114/76 (89) 62 03/22/17 07:19 122 24 108/75 (86) 76 03/22/17 07:17 122 28 125/74 (91) 74 03/22/17 07:15 124 19 103/78 (86) 74 03/22/17 07:00 122 24 137/83 (101) 78 03/22/17 06:58 122 25 116/85 (95) 79 03/22/17 04:26 95 Nasal Cannula 2.00 03/22/17 04:00 96.7 106 21 155/94 (114) 95 03/22/17 02:48 03/22/17 02:38 98.2 108 22 140/70 (93) 95 2.00 03/22/17 01:47 112 24 147/88 (107) 95 Nasal Cannula 2.00 03/22/17 00:35 115 22 138/88 (105) 88 Room Air 03/22/17 00:14 25 Nasal Cannula 4.00 03/22/17 00:09 120 25 147/87 (107) 86 Physical Exam GENERAL: 61-year-old male resting in bed in no acute distress intubated SKIN: Warm and dry. HEAD: Atraumatic. Normocephalic. EYES: Pupils equal and round. No scleral icterus. No injection or drainage. ENT: No nasal bleeding or discharge. Mucous membranes pink and moist. NECK: Trachea midline. No JVD. CARDIOVASCULAR: Regular rate and rhythm. S1, S2. No S4. Without murmur RESPIRATORY: No breath sounds right lung anne. Left lung anne are essentially clear without wheezing GASTROINTESTINAL: Abdomen soft, non-tender, nondistended. Hypoactive bowel sounds MUSCULOSKELETAL: Extremities without difficulty and peripheral edema. No obvious deformities. NEUROLOGICAL: Prior to intubation, Awake and alert. No obvious cranial nerve deficits. Motor grossly within normal limits. Five out of 5 muscle strength in the arms and legs. Pressure speech. Currently paralyzed on cisatracurium RASS - 5 Laboratory Laboratory Tests Test 03/22/17 00:17 03/22/17 00:35 03/22/17 05:47 03/22/17 05:55 White Blood Count 8.4 Red Blood Count 3.69 Hemoglobin 9.0 9.1 Hematocrit 28.3 27.8 Mean Corpuscular Volume 76.7 Mean Corpuscular Hemoglobin 24.5 Mean Corpuscular Hemoglobin Concent 32.0 Red Cell Distribution Width 21.8 Platelet Count 604 Mean Platelet Volume 7.0 Neutrophils (%) (Auto) 81.7 Lymphocytes (%) (Auto) 6.4 Monocytes (%) (Auto) 10.1 Eosinophils (%) (Auto) 0.5 Basophils (%) (Auto) 1.3 Neutrophils # (Auto) 7.0 Lymphocytes # (Auto) 0.5 Monocytes # (Auto) 0.8 Eosinophils # (Auto) 0.0 Basophils # (Auto) 0.1 CBC Comment AUTO DIFF Differential Comment AUTO DIFF CONFIRMED Platelet Estimate HIGH Platelet Morphology Comment NORMAL Ovalocytes 1+ Blood Urea Nitrogen 14 Creatinine 0.52 Random Glucose 128 Total Protein 8.3 Albumin 3.4 Calcium Level 8.8 Magnesium Level 2.3 Alkaline Phosphatase 107 Aspartate Amino Transf (AST/SGOT) 34 Alanine Aminotransferase (ALT/SGPT) 12 Total Bilirubin 0.4 Sodium Level 131 Potassium Level 4.2 Chloride Level 98 Carbon Dioxide Level 25.1 Anion Gap 8 Estimat Glomerular Filtration Rate 161 Blood Gas Puncture Site RT RADIAL RT RADIAL Blood Gas Patient Temperature 98.6 37.0 Blood Gas HCO3 24 23 Blood Gas Base Excess 0.8 -0.3 Blood Gas Oxygen Saturation 91 91 Arterial Blood pH 7.51 7.49 Arterial Blood Partial Pressure CO2 30 30 Arterial Blood Partial Pressure O2 59 60 Arterial Blood Oxygen Content 10.9 10.9 Arterial Blood Carboxyhemoglobin 1.8 1.6 Arterial Blood Methemoglobin 0.6 0.6 Blood Gas Hemoglobin 8.5 8.5 Blood Gas Inspired Oxygen 21 Oxygen Delivery Device PRB Blood Gas Liter Flow 15 Result Diagram: 03/22/17 0555 03/22/17 [address] Angiography 03/22/17 0000 Signed Impressions: Service Date/Time: March 02:06 - CONCLUSION: 1. Negative for pulmonary embolus. 2. Near-complete obstruction of the right mainstem bronchus. 3. Massive mediastinal adenopathy, pulmonary parenchymal metastatic disease and widespread bony metastases. Dl Henry MD Chest X-Ray 03/21/17 8760 Signed Impressions: Service Date/Time: March 00:18 - CONCLUSION: 1. Increasing elevation of the right hemidiaphragm possibly due to phrenic nerve involvement from known mediastinal tumor. Minimal basilar atelectasis. Dl Henry MD Septic Shock Reassessment Septic shock perfusion: reassessment completed Assessment and Plan Assessment and Plan Neuro/Psych: 9 mm right occipital mass/metastases Chronic opiate use Peripheral neuropathy Patient is currently on midazolam drip at 10 mg an hour/fentanyl drip at 350 mg per sedation while intubated Goal of RA SS of -5 Daily sedation vacation Patient is on morphine sulfate 50 mg twice a day for chronic pain management Continue gabapentin 100 mg by mouth twice a day CV: Currently normal saline at 100 cc now Status post 3 L normal saline wide open As needed labetalol for hypertension Norepinephrine if needed to maintain mean arterial pressure greater than equal to 65 Resp: Acute respiratory failure secondary to right mainstem mass PRVC 16/500/02/23/ Ventilator bundle Albuterol/ipratropium aerosols every 4 hours with albuterol aerosols every 2 hours. Discussed Attempted to pass ET tube to left mainstem however mass/tumor tracked along with ET tube and unable to pass. ET tube currently at 24 cm. Saturations 100% Patient is currently paralyzed. Do not Dr. Holcomb/pulmonology consult GI: Patient is on Megestrol 40 mg by mouth twice a day for anorexia Patient is on promethazine 25 mg every 6 hours as needed nausea and ondansetron 4 milligrams by mouth every 6 hours when necessary nausea NGT to LIWS Lansoprazole for GI prophylaxis Docusate sodium/senna 1 tablet twice a day for bowel regimen : Doyle catheter will be placed for accurate I's and O's in a critically ill patient Endo: Sliding-scale insulin with Accu-Cheks to maintain euglycemia Low regimen q6h Renal: Creatinine currently within normal limits Monitor urine output Accurate I's and O's Heme: Prostate cancer metastases to bone/brain Microcytic anemia Thrombocytosis Dr. Marsh consulted. Enzalutamide 160 mg by mouth daily will be resumed ID: Broad-spectrum antibiotics including piperacillin tazobactam and vancomycin Cultures 2 will be drawn. FEN: Hyponatremia Replace electrolytes as clinically indicated per ICU electrolyte protocol MSK: PT evaluate and treat Access -Right IJ CVL day 1 placed 2/ Prophylaxis - GI - pantoprazole - DVT - SCD/holding pharmacological prophylaxis in light of bleeding lung mass Critical Care: The total critical care time was 65 minutes. Time to perform other separately billable procedures was not included in the critical care time. Code Status Full code Discussed Condition With Patient. Dr. holcomb/pulmonology. Care plan discussed and all questions answered. Attempted to contact mother Wolfgang St MD Mar 22, 2017 09:20
[2017-03-22] MEDS: CISATRACURIUM INJ 100 MG in SODIUM CHLOR 0.9% 250 ML INJ 250 ML IV PRN ×2 (09:40→23:21)
--- NOTE | 2017-03-22 10:09 | RADRPT ---
EXAM DATE/TIME: 03/22/2017 09:25 [facility] COMPARISON: CT PULMONARY ANGIOGRAM, March 22, 2017, 2:06. CHEST PA & LAT, March 22, 2017, 0:18. CHEST SIN GLE AP, March 19, 2017, 3:10. INDICATIONS : Central line placement. MEDICAL HISTORY : Metastatic prostate cancer. Status post chemotherapy and radiation therapy. SURGICAL HISTORY : Tonsillectomy. ENCOUNTER: Subsequent ACUITY: 4 - 6 days PAIN SCORE: Non-responsive. LOCATION: Bilateral chest FINDINGS: 2 AP supine portable views of the chest were obtained and demonstrate that the patient is status post interval intubation with the endotracheal tube tip approximately 4 cm above the mala. There has be en placement of a right internal jugular central venous line with the tip projected over the superior vena cava with no pneumothorax. A nasogastric tube has been placed and is seen coursing through the esophagus and into the stomach. Elevation of the right hemidiaphragm is again noted. There is new inf iltrate in the right perihilar region and right lung base with small ill-defined pulmonary nodules no mary jo. There are multiple vague nodules projected over the left lung as well. The heart size remains at the upper limits of normal. Widespread sclerotic osseous metastasis are again noted. CONCLUSION: 1. Interval intubation and placement of right internal jugular central venous line with no pneumothor ax. 2. New infiltrate in the right perihilar region and right lung base concerning for pneumonia. 3. Multiple bilateral nodules consistent with metastatic disease. 4. Sclerotic metastatic disease again noted to be osseous structures. Álvaro Sylvester MD on March 22, 2017 at 10:02 Board Certified Radiologist. This report was verified electronically.
--- NOTE | 2017-03-22 10:14 | RADRPT ---
EXAM DATE/TIME: 03/22/2017 09:25 [facility] COMPARISON: No previous studies available for comparison. INDICATIONS : NG tube placement. MEDICAL HISTORY : Metastatic prostate cancer status post chemotherapy and radiation therapy. SURGICAL HISTORY : Tonsillectomy. ENCOUNTER: Subsequent ACUITY: 4 - 6 days PAIN SCORE: Non-responsive. LOCATION: Bilateral abdomen FINDINGS: 2 AP supine views of the abdomen and pelvis were obtained and demonstrate a nasogastric tube in place with the tip in the proximal to mid stomach. There is mild gaseous distention in the colon with mode rate amount of stool present. Elevation of the right hemidiaphragm is again noted. Widespread osseous metastatic disease is noted. There is no evidence of free air. CONCLUSION: 1. Nasogastric tube in place. 2. Nonspecific, nonobstructive bowel gas pattern most characteristic of an ileus. 3. Widespread sclerotic osseous metastasis. 4. Elevation of the right hemidiaphragm. Álvaro Sylvester MD on March 22, 2017 at 10:10 Board Certified Radiologist. This report was verified electronically.
[2017-03-22 10:24] LABS: INTERNATIONAL NORMALIZED RATIO 1.2 RATIO; PROTHROMBIN TIME - PATIENT 12.6 SEC (9.8-11.6)
[2017-03-22] MEDS ORDERED: POTASSIUM CHLORIDE 25 MEQ EFFERVESCENT TAB PO PRN (10:30)
[2017-03-22] MEDS ORDERED: MISCELLANEOUS NURSING INFORMATION XX SCH (10:30)
[2017-03-22] MEDS ORDERED: MAGNESIUM SULFATE INJ 2 GM in SODIUM CHLORIDE 0.9% INJ 96 ML IV PRN (10:30)
[2017-03-22] MEDS ORDERED: POTASSIUM PHOSPHATE INJ 30 MMOL in SODIUM CHLOR 0.9% 250 ML INJ 250 ML IV PRN (10:30)
[2017-03-22] MEDS ORDERED: ONDANSETRON HCL 4 MG/2 ML VIAL IV PUSH PRN (10:30)
[2017-03-22] MEDS ORDERED: MAGNESIUM OXIDE 400 MG TAB PO PRN (10:30)
[2017-03-22] MEDS ORDERED: POTASSIUM CHLOR 40 MEQ PREMIX 100 ML IV PRN ×2 (10:30)
[2017-03-22] MEDS ORDERED: POTASSIUM CHLOR 20 MEQ PREMIX 100 ML IV PRN ×2 (10:30)
[2017-03-22] MEDS ORDERED: POTASSIUM PHOSPHATE MONOBASIC 500 MG TAB PO PRN (10:30)
[2017-03-22] MEDS ORDERED: RESP: ALBUTEROL 2.5 MG/3 ML NEB (PRN) INH (10:30)
[2017-03-22] MEDS ORDERED: DEXTROSE 50% IN WATER 50 ML VIAL(D50) IV PUSH PRN (10:30)
[2017-03-22] MEDS ORDERED: MAGNESIUM SULFATE INJ 4 GM in SODIUM CHLORIDE 0.9% INJ 92 ML IV PRN (10:30)
[2017-03-22] MEDS ORDERED: POTASSIUM PHOSPHATE MONOBASIC 500 MG TAB PO/TUBE PRN (10:30)
[2017-03-22] MEDS ORDERED: SODIUM PHOSPHATE INJ 30 MMOL in SODIUM CHLOR 0.9% 250 ML INJ 240 ML IV PRN (10:30)
[2017-03-22] MEDS ORDERED: CHLORHEXIDINE GLUCONATE 2 % 1 PACK (2 CLOTHS) TOP PRN (10:30)
[2017-03-22] MEDS ORDERED: ACETAMINOPHEN 650 MG/20.3 ML UDC NG PRN (10:30)
[2017-03-22] MEDS ORDERED: GLUCAGON 1 MG/ML VIAL OTHER PRN (10:30)
[2017-03-22] MEDS: CHLORHEXIDINE 0.12% (ORAL KIT) 15 ML CUP MT SCH ×2 (11:22→20:00)
[2017-03-22 11:40] LABS: HEMATOCRIT 21.9 % (39.0-51.0)
[2017-03-22 11:42] LABS: BILIRUBIN, URINE NEG (NEG); BLOOD, URINE NEG (NEG); GLUCOSE,URINE NEG (NEG); KETONE, URINE NEG (NEG); NITRITE,URINE NEG (NEG); URINE LEUKOCYTE ESTERASE NEG (NEG)
[2017-03-22 11:44] LABS: HEMOGLOBIN 6.8 GM/DL (13.0-17.0)
[2017-03-22] MEDS ORDERED: SODIUM CHLOR 0.9% 1000 ML INJ 1,000 ML IV SCH (11:45)
[2017-03-22 11:58] LABS: MUCUS URINE RARE /lpf (OCC); URINE COLOR YELLOW (YELLW/STRAW)
[2017-03-22] MEDS: INSULIN NovoLIN REGULAR SUPPLEMENTAL SCALE SQ SCH ×2 (12:00→18:00)
[2017-03-22 12:01] LABS: WBC, URINE 0-2 /hpf (0-5)
[2017-03-22] MEDS: SODIUM CHLOR 0.9% 1000 ML INJ 1,000 ML IV SCH ×2 (12:08→21:33)
[2017-03-22] MEDS: DEXAMETHASONE SOD PHOS 4 MG/ML VIAL IV PUSH SCH ×2 (12:59→21:34)
[2017-03-22] MEDS ORDERED: ARTIFICIAL TEARS OPTH SOLN 15 ML BTL EACH EYE SCH (13:00)
[2017-03-22] MEDS: RESP: ALBUTEROL 2.5 MG/IPRATROPIUM 0.5 MG NEB (SCH) INH ×2 (15:06→22:14)
--- NOTE | 2017-03-22 15:36 | PD.CONS ---
Consult Service Palliative Care Consult Requested By Dr. St Primary Care Physician Arvind Abrams DO Reason for Consultation a. To assist with evaluation and management of symptoms including: Dyspnea, anxiety b. To assist medical decision maker(s) with: better understanding of current medical conditions; weighing benefits/burdens of medical treatment options; making medical treatment decisions. HPI History of Present Illness This is a 61-year-old male seen in the intensive care unit after intubation for gross hemoptysis and respiratory failure. 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 At the time of diagnosis his PSA was not in excess of 1400 and his Avni score was 10. The continued to decline on first-line dual androgen blockade with flutamide and Lupron and had a mixed response to docetaxel, which he had difficulty tolerating and was scheduled to start Xtandi. Interim restaging MRI of the brain indicated previously unknown 9 mm metastatic deposit within the right occipital lobe with vasogenic edema which was not identified on the MRI of the brain performed 03/12/17. He has been seen in the emergency room frequently since the beginning of 2016 for a variety of pain, nausea and bleeding complaints, many of which have been related to his cancer treatment. He presented to the emergency room 03/22 with a complaint of hematemesis and dyspnea and was subsequently admitted. Shortly after admission he developed gross hemoptysis and respiratory failure requiring intubation. During intubation the intensivists encountered a large fibrinous mass in the right main bronchus which he was unable to pass. There was no active bleeding. Attempts were made to flush and to move the mass with forceps with no result. As he attempted to continue to advance the ET tube and left mainstem the mass removed along with the ET tube and covered the airway. Requiring repositioning of the tube. Patient was subsequently paralyzed and sedated and placed on 100% FiO2. Chest x-ray showed the tip of the ET tube approximately 4 cm above the mala. He is currently hypotensive receiving vasopressor support with norepinephrine. His presenting hemoglobin was 9.0, he is receiving every 6 hours hemoglobin checks to evaluate for continued bleeding. His last hemoglobin was 6.8. This is likely significant of continued bleeding. ED course: * Laboratory: WBC 8.4, hemoglobin 9.0, hematocrit 28.3, platelets 604, sodium 131, potassium 4.2, BUN 14, creatinine 0.5 to, normal transaminase. Presenting ABG shows pH 7.51, PCO2 30, PO2 59, oxygen saturation 91% on room air HCO3 24, base excess +0.8. * Radiology: CTA of thorax was negative for pulmonary embolus, showed an increasing obstruction of the right mainstem bronchus, now nearly completely occluding approximately with mucoid debris in the carinal region, widespread pulmonary parenchymal or bony metastatic disease with pathologic fracture of the left sixth rib laterally. Inferior vena cava compressed without obstruction. Abdominal x-ray shows NG tube in place, nonspecific nonobstructive bowel gas pattern most characteristic of an ileus, widespread sclerotic osseous metastasis and elevation of the right hemidiaphragm. Function/Cognitive Trajectory Patient is unable to provide any history. History from the chart indicates that he had frequent complaints at his oncology's office of weakness, fatigue and anorexia, thought to be related to his chemotherapy. He had been seen by the nurse practitioner for oncology the prior week due to fatigue, weakness and an inability to maintain his balance. . Review of Systems ROS Limitations: Clinical Condition, Intubated (Patient is nonverbal and unable to provide their own ROS. 10 part ROS taken as best as possible from medical record and available family.) Constitutional: COMPLAINS OF: Fatigue, Change in appetite, Generalized weakness Respiratory: COMPLAINS OF: Hemoptysis, Shortness of breath Musculoskeletal: COMPLAINS OF: Joint pain Neurologic: COMPLAINS OF: Poor Balance Psychiatric: COMPLAINS OF: Anxiety, Depression Past Family Social History Coded Allergies: peanut (Verified Allergy, Severe, Hives, 03/19/17) Past Medical History High risk prostate carcinoma with metastasis to the brain, bone and lung Anxiety Depression Arthritis GERD History of alcohol abuse Radiation proctitis GI bleeding . Past Surgical History Multicore prostate biopsy 2016 . Reported Medications Reported Meds & Active Scripts Active Phenergan (Promethazine HCl) 25 Mg Tablet 25 Mg PO Q6H PRN Reported Multiple Vitamin 1 Tab 1 Tab PO DAILY Xtandi (Enzalutamide) 40 Mg Cap 160 Mg PO DAILY Megestrol (Megestrol Acetate) 40 Mg Tab 40 Mg PO BID Ondansetron Odt 4 Mg Tab 4 Mg SL Q6HR PRN Morphine ER (Morphine Sulfate) 15 Mg Tab 15 Mg PO BID PRN Gabapentin 100 Mg Cap 100 Mg PO BID . Current Medications Medications (Trade) Dose Ordered Sig/Savita Route Start Time Stop Time Status Last Admin Sodium Chloride 250 ml @ 15 mls/hr ONCE ONCE IV 03/22/17 00:00 03/22/17 16:39 03/22/17 03:01 (NS Flush) 2 ml UNSCH PRN IV FLUSH 03/22/17 01:45 (NS Flush) 2 ml BID IV FLUSH 03/22/17 09:00 03/22/17 07:31 (Narcan Inj) 0.4 mg UNSCH PRN IV PUSH 03/22/17 01:45 (Neurontin) 100 mg BID PO 03/22/17 09:00 (Megace) 40 mg BID PO 03/22/17 09:00 (Oramorph Sr) 15 mg BID PRN PO 03/22/17 01:45 03/22/17 03:00 Patient Own Medication PT OWN MED: XTANDI... DAILY PO 03/22/17 09:00 (Levsin) 0.125 mg Q4H PRN PO 03/22/17 04:00 03/22/17 04:44 (Peridex 0.12% Liq) 15 ml BID@08,20 MT 03/22/17 08:00 03/22/17 11:22 Fentanyl Citrate 250 ml @ 5 mls/hr TITRATE PRN IV 03/22/17 07:00 03/22/17 08:38 Midazolam HCl 100 ml @ 2 mls/hr TITRATE PRN IV 03/22/17 07:00 03/22/17 07:55 Norepinephrine Bitartrate 4 mg/ Sodium Chloride 250 ml @ 7.5 mls/hr TITRATE PRN IV 03/22/17 07:15 (Brethine Inj) 1 mg UNSCH PRN SQ 03/22/17 07:15 (NS Flush) DAILY IV FLUSH 03/22/17 09:00 (NS Flush) UNSCH PRN IV FLUSH 03/22/17 08:45 Cisatracurium Besylate 100 mg/ Sodium Chloride 260 ml @ 12.94 mls/ hr TITRATE PRN IV 03/22/17 09:15 03/22/17 09:40 (Trandate Inj) 10 mg Q1HR PRN IV PUSH 03/22/17 09:15 (Theragran) 1 tab DAILY PO 03/23/17 09:00 Potassium Chloride 100 ml @ 50 mls/hr Q2H PRN IV 03/22/17 10:30 Potassium Chloride 100 ml @ 50 mls/hr Q2H PRN IV 03/22/17 10:30 (K-Lyte Cl Eff) 50 meq UNSCH PRN PO 03/22/17 10:30 Potassium Chloride 100 ml @ 25 mls/hr UNSCH PRN IV 03/22/17 10:30 Potassium Chloride 100 ml @ 50 mls/hr Q2H PRN IV 03/22/17 10:30 Magnesium Sulfate 4 gm/Sodium Chloride 100 ml @ 50 mls/hr UNSCH PRN IV 03/22/17 10:30 (Mag-Ox) 800 mg UNSCH PRN PO 03/22/17 10:30 Magnesium Sulfate 2 gm/Sodium Chloride 100 ml @ 50 mls/hr UNSCH PRN IV 03/22/17 10:30 (K-Phos) 2,000 mg Q4H PRN PO 03/22/17 10:30 Sodium Phosphate 30 mmol/Sodium Chloride 250 ml @ 42 mls/hr UNSCH PRN IV 03/22/17 10:30 (K-Phos) 2,000 mg UNSCH PRN PO/TUBE 03/22/17 10:30 Potassium Phosphate 30 mmol/ Sodium Chloride 260 ml @ 42 mls/hr UNSCH PRN IV 03/22/17 10:30 (Decadron Inj) 4 mg Q8HR IV PUSH 03/22/17 14:00 03/22/17 12:59 (D50w (Vial) Inj) 50 ml UNSCH PRN IV PUSH 03/22/17 10:30 (Glucagon Inj) 1 mg UNSCH PRN OTHER 03/22/17 10:30 (NovoLIN R SUPPLEMENTAL SCALE) 1 Q6HR SQ 03/22/17 12:00 (Tylenol 650 Mg/ 20 ml Liq) 650 mg Q6H PRN NG 03/22/17 10:30 Sodium Chloride 1,000 ml @ 100 mls/hr Q10H IV 03/22/17 10:26 03/22/17 12:08 (Prevacid Odt) 30 mg DAILY G-TUBE 03/23/17 09:00 (Tears Naturale Opth Soln) 1 drop TID EACH EYE 03/22/17 13:00 (Zofran Inj) 4 mg Q6H PRN IV PUSH 03/22/17 10:30 (Duoneb Neb) 1 ampule Q6HR NEB INH 03/22/17 16:00 (Albuterol Neb) 2.5 mg Q2HR NEB PRN INH 03/22/17 10:30 Miscellaneous Information 1 Q361D XX 03/22/17 10:30 03/22/17 10:30 (Chlorhexidine 2% Cloth) 3 pack Taper DAILY@04 TOP 03/23/17 04:00 03/19/18 03:59 (Chlorhexidine 2% Cloth) 3 pack UNSCH PRN TOP 03/22/17 10:30 ([place]-Colace) 1 tab BID PO 03/22/17 21:00 (Milk Of Magnesia Liq) 30 ml Q12H PRN PO 03/22/17 10:30 (Senokot) 17.2 mg Q12H PRN PO 03/22/17 10:30 (Dulcolax Supp) 10 mg DAILY PRN RECTAL 03/22/17 10:30 (Lactulose Liq) 30 ml DAILY PRN PO 03/22/17 10:30 Sodium Chloride 1,000 ml @ 0 mls/hr BOLUS IV 03/22/17 11:45 03/24/17 11:46 03/22/17 12:08 . Family History His mother is alive at 97 with a history of osteoarthritis. She resides in [place]. His father at age 85 of a CVA. He has 1 brother with bipolar disorder and one sister who is alive and well. . Substance Use Tobacco: Denies any history of tobacco abuse. Alcohol: Previous heavy drinker for 17 years, reportedly quit 02/03. Prescription med abuse: Chronic narcotic use associated with cancer treatment otherwise no history of prescription drug abuse. Illicits: No history of illicit drug abuse. . Psychosocial History He was born in [place] and completed his schooling there. 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 He moved to [place] many years ago. . Spiritual/Cultural Factors Circus Train Supervisor available. . Living Will: Never completed Health Care Surrogate: Never completed Durable Power of Reed Maker: Never completed Health Care Surrogate(s): No healthcare surrogate paperwork is available. Documented care wishes: No documentation available. . Today's verbally stated goals: Patient intubated and unable to speak. . Family/friends goals: After discussion with his niece, Jaimie Rodrigues and his daughter, Lindsay Bean , they have both determined that DO NOT RESUSCITATE status is in the patient's best interest and consistent with his goals. . . Ethical and Legal Issues I have spoken with his mother who declined to participate due to her age and infirmities, his sister Flakita who stated she has been estranged from him or some time and would prefer that her daughter be the point of contact and decision-maker, as she had personal knowledge of the patient's advanced directives and had held multiple conversations with him regarding his end-of- life wishes. As she is willing to participate and no other family members are available during the search for his daughter to see if she is willing to participate, Jaimie has agreed to be the decision-maker until the daughter can be found. Jaimie later called me back and provided me with the daughter's name and telephone number as Lindsay Bean , but during that conversation questioned paternity, stating she did not believe he was the patient's daughter. I spoke with Janet, in the legal department, and discussed the discrepancy and was advised that we could request a paternity test if one were available. I contacted Lindsay by phone who confirmed that she is Mr. Dejesus's daughter and has been in close daily contact with him since he became ill. Lindsay denies any proof of paternity but was able to provide me with details of her interactions with him over the last 17 years to include his recent medical care, treatment regimen, recent emergency room visits and his departure from the emergency room [place] on 03/19/17. Per [place] statutes, as his daughter, she would be the legal proxy decision-maker. . Physical Exam Vital Signs Date Time Temp Pulse Resp B/P (MAP) Pulse Ox O2 Delivery O2 Flow Rate FiO2 03/22/17 11:19 100 80 03/22/17 09:52 100 100 03/22/17 08:45 88 100 03/22/17 08:00 99 100 03/22/17 08:00 102 17 144/98 (113) 100 03/22/17 07:47 106 11 186/112 (136) 97 03/22/17 07:45 104 19 175/105 (128) 96 03/22/17 07:42 102 12 178/104 (128) 99 03/22/17 07:40 102 14 166/104 (124) 97 03/22/17 07:37 102 19 161/100 (120) 94 03/22/17 07:35 102 20 159/98 (118) 97 03/22/17 07:32 106 20 133/86 (102) 100 03/22/17 07:29 110 12 138/86 (103) 100 03/22/17 07:27 114 20 146/88 (107) 100 03/22/17 07:24 122 17 103/67 (79) 52 03/22/17 07:22 118 31 114/76 (89) 62 03/22/17 07:19 122 24 108/75 (86) 76 03/22/17 07:17 122 28 125/74 (91) 74 03/22/17 07:15 124 19 103/78 (86) 74 03/22/17 07:00 122 24 137/83 (101) 78 03/22/17 06:58 122 25 116/85 (95) 79 03/22/17 04:26 95 Nasal Cannula 2.00 03/22/17 04:00 96.7 106 21 155/94 (114) 95 03/22/17 02:48 03/22/17 02:38 98.2 108 22 140/70 (93) 95 2.00 03/22/17 01:47 112 24 147/88 (107) 95 Nasal Cannula 2.00 03/22/17 00:35 115 22 138/88 (105) 88 Room Air 03/22/17 00:14 25 Nasal Cannula 4.00 03/22/17 00:09 120 25 147/87 (107) 86 . 03/22/17 03/23/17 19:00 07:00 Intake Total 3000 ml Balance 3000 ml IV Total 3000 ml . Exam CONSTITUTIONAL/GENERAL: This is an adequately nourished patient, intubated, sedated, paralyzed. TUBES/LINES/DRAINS: ETT, left ACF PIV, right IJ central line, Doyle, NG tube to right nare SKIN: Pale, damp, intact. HEAD: Atraumatic. Normocephalic. EYES: Pupils equal and round and reactive. No scleral icterus. No injection or drainage. Fundi not examined. ENT: Nose without bleeding or purulent drainage. NECK: Trachea midline. Supple, nontender. No palpable thyroid enlargement or nodularity. CARDIOVASCULAR: Regular rate and rhythm without murmurs, gallops, or rubs. No JVD. Peripheral pulses symmetric. RESPIRATORY/CHEST: Lungs diminished, right greater than left. No adventitious sounds auscultated. GASTROINTESTINAL: Abdomen soft,nondistended. Bowel sounds present. GENITOURINARY: Without palpable bladder distension. Doyle catheter in place. MUSCULOSKELETAL: Extremities without clubbing, cyanosis, or edema. No mottling or clubbing. NEUROLOGICAL: Intubated, sedated, paralyzed. PSYCHIATRIC: Sedated. . Diagnostic Tests Laboratory Laboratory Tests Test 03/22/17 00:17 03/22/17 00:35 03/22/17 05:47 03/22/17 05:55 White Blood Count 8.4 TH/MM3 (4.0-11.0) Red Blood Count 3.69 MIL/MM3 (4.50-5.90) Hemoglobin 9.0 GM/DL (13.0-17.0) 9.1 GM/DL (13.0-17.0) Hematocrit 28.3 % (39.0-51.0) 27.8 % (39.0-51.0) Mean Corpuscular Volume 76.7 FL (80.0-100.0) Mean Corpuscular Hemoglobin 24.5 PG (27.0-34.0) Mean Corpuscular Hemoglobin Concent 32.0 % (32.0-36.0) Red Cell Distribution Width 21.8 % (11.6-17.2) Platelet Count 604 TH/MM3 (150-450) Mean Platelet Volume 7.0 FL (7.0-11.0) Neutrophils (%) (Auto) 81.7 % (16.0-70.0) Lymphocytes (%) (Auto) 6.4 % (9.0-44.0) Monocytes (%) (Auto) 10.1 % (0.0-8.0) Eosinophils (%) (Auto) 0.5 % (0.0-4.0) Basophils (%) (Auto) 1.3 % (0.0-2.0) Neutrophils # (Auto) 7.0 TH/MM3 (1.8-7.7) Lymphocytes # (Auto) 0.5 TH/MM3 (1.0-4.8) Monocytes # (Auto) 0.8 TH/MM3 (0-0.9) Eosinophils # (Auto) 0.0 TH/MM3 (0-0.4) Basophils # (Auto) 0.1 TH/MM3 (0-0.2) CBC Comment AUTO DIFF Differential Comment AUTO DIFF CONFIRMED Platelet Estimate HIGH (NORMAL) Platelet Morphology Comment NORMAL (NORMAL) Ovalocytes 1+ (NORMAL) Blood Urea Nitrogen 14 MG/DL (7-18) Creatinine 0.52 MG/DL (0.60-1.30) Random Glucose 128 MG/DL (74-106) Total Protein 8.3 GM/DL (6.4-8.2) Albumin 3.4 GM/DL (3.4-5.0) Calcium Level 8.8 MG/DL (8.5-10.1) Magnesium Level 2.3 MG/DL (1.5-2.5) Alkaline Phosphatase 107 U/L (45-117) Aspartate Amino Transf (AST/SGOT) 34 U/L (15-37) Alanine Aminotransferase (ALT/SGPT) 12 U/L (12-78) Total Bilirubin 0.4 MG/DL (0.2-1.0) Sodium Level 131 MEQ/L (136-145) Potassium Level 4.2 MEQ/L (3.5-5.1) Chloride Level 98 MEQ/L (98-107) Carbon Dioxide Level 25.1 MEQ/L (21.0-32.0) Anion Gap 8 MEQ/L (5-15) Estimat Glomerular Filtration Rate 161 ML/MIN (>89) Blood Gas Puncture Site RT RADIAL RT RADIAL Blood Gas Patient Temperature 98.6 37.0 Blood Gas HCO3 24 mmol/L (22-26) 23 mmol/L (22-26) Blood Gas Base Excess 0.8 mmol/L (-2-2) -0.3 mmol/L (-2-2) Blood Gas Oxygen Saturation 91 % (90-100) 91 % (90-100) Arterial Blood pH 7.51 (7.380-7.420) 7.49 (7.380-7.420) Arterial Blood Partial Pressure CO2 30 mmHG (38-42) 30 mmHg (38-42) Arterial Blood Partial Pressure O2 59 mmHG (61-120) 60 mmHg (61-120) Arterial Blood Oxygen Content 10.9 Vol % (12.0-20.0) 10.9 Vol % (12.0-20.0) Arterial Blood Carboxyhemoglobin 1.8 % (0-4) 1.6 % (0-4) Arterial Blood Methemoglobin 0.6 % (0-2) 0.6 % (0-2) Blood Gas Hemoglobin 8.5 G/DL (12.0-16.0) 8.5 G/DL (12.0-16.0) Blood Gas Inspired Oxygen 21 % Oxygen Delivery Device PRB Blood Gas Liter Flow 15 L/M Test 03/22/17 09:40 03/22/17 10:05 03/22/17 11:05 03/22/17 11:10 Blood Gas Puncture Site LT RADIAL Blood Gas Patient Temperature 37.0 Blood Gas HCO3 23 mmol/L (22-26) Blood Gas Base Excess -1.9 mmol/L (-2-2) Blood Gas Oxygen Saturation 98 % (90-100) Arterial Blood pH 7.37 (7.380-7.420) Arterial Blood Partial Pressure CO2 40 mmHg (38-42) Arterial Blood Partial Pressure O2 370 mmHg (61-120) Arterial Blood Oxygen Content 11.6 Vol % (12.0-20.0) Arterial Blood Carboxyhemoglobin 1.1 % (0-4) Arterial Blood Methemoglobin 1.0 % (0-2) Blood Gas Hemoglobin 7.7 G/DL (12.0-16.0) Oxygen Delivery Device VENTILATOR Blood Gas Ventilator Setting 15/600/PEEP 12 Blood Gas Inspired Oxygen 100 % Prothrombin Time 12.6 SEC (9.8-11.6) Prothromb Time International Ratio 1.2 RATIO Activated Partial Thromboplast Time 40.6 SEC (24.3-30.1) Fibrinogen 496 mg/dL (227-377) Urine Collection Type CLEAN CATCH Urine Color YELLOW (YELLW/STRAW) Urine Turbidity CLEAR (CLEAR) Urine pH 6.0 (5.0-8.5) Urine Specific [place] GREATER THAN 1.035 Urine Protein NEG mg/dL (NEG-TRACE) Urine Glucose (UA) NEG mg/dL (NEG) Urine Ketones NEG mg/dL (NEG) Urine Occult Blood NEG (NEG) Urine Nitrite NEG (NEG) Urine Bilirubin NEG (NEG) Urine Leukocyte Esterase NEG (NEG) Urine WBC 0-2 /hpf (0-5) Urine Mucus RARE /lpf (OCC) Microscopic Urinalysis Comment CULT NOT INDICATED Hemoglobin 6.8 GM/DL (13.0-17.0) Hematocrit 21.9 % (39.0-51.0) . Result Diagram: 03/22/17 1110 03/22/17 0017 Microbiology Microbiology Date/Time Source Procedure Growth Status 03/22/17 11:20 Blood Peripheral Aerobic Blood Culture Pending Received 03/22/17 11:20 Blood Peripheral Anaerobic Blood Culture Pending Received 03/22/17 11:10 Blood Peripheral Aerobic Blood Culture Pending Received 03/22/17 11:10 Blood Peripheral Anaerobic Blood Culture Pending Received 03/22/17 11:05 Urine Catheterized Urine Urine Culture Pending Received Imaging Last Impressions Chest X-Ray 03/22/17 0839 Signed Impressions: Service Date/Time: March 09:25 - CONCLUSION: 1. Interval intubation and placement of right internal jugular central venous line with no pneumothorax. 2. New infiltrate in the right perihilar region and right lung base concerning for pneumonia. 3. Multiple bilateral nodules consistent with metastatic disease. 4. Sclerotic metastatic disease again noted to be osseous structures. Álvaro Sylvester MD CT Angiography 03/22/17 0000 Signed Impressions: Service Date/Time: March 02:06 - CONCLUSION: 1. Negative for pulmonary embolus. 2. Near-complete obstruction of the right mainstem bronchus. 3. Massive mediastinal adenopathy, pulmonary parenchymal metastatic disease and widespread bony metastases. Dl Henry MD Abdomen X-Ray 03/22/17 0000 Signed Impressions: Service Date/Time: March 09:25 - CONCLUSION: 1. Nasogastric tube in place. 2. Nonspecific, nonobstructive bowel gas pattern most characteristic of an ileus. 3. Widespread sclerotic osseous metastasis. 4. Elevation of the right hemidiaphragm. Álvaro Sylvester MD . Procedures 03/22/17: Orotracheal intubation. 03/22/17: Right IJ central line placement. . Patient/Family Conference Present at Family Conference: I spoken with his mother who states she is 89 and unable to make these kinds of decisions. She provided me with her daughter, Cielo stinson. I spoke with Flakita who stated that she had been estranged from her brother for the last 58 years. She was able to provide some limited psychosocial history but otherwise no very little of her brother's history. She stated that she would prefer to have her daughter, Jaimie Rodrigues, act as the decision-maker as Jaimie was closest to the patient and spoke to him several times a week to include conversations regarding advanced directives and end-of-life wishes. The patient had also listed Jaimie as his next of kin and the point of contact on admission. I did speak with Jaimie and update her as to the patient's current status. She requested further information from oncology regarding prognosis. At her request I spoke to Dr. St, who had spoken with oncology and pulmonology regarding the patient earlier today after intubation and he reiterated their opinions that his prognosis was extremely poor, no further treatment would benefit the patient and he would be hospice appropriate. Upon discussing that with Jaimie she determined that he should be made a DO NOT RESUSCITATE status as resuscitation in his case would be futile and likely to subject him to further harm. She is making plans to travel to [place] and plans to be here Sunday. He will remain intubated but is a DO NOT RESUSCITATE status at this time. She did state that he has a daughter, Lindsay, from whom he has been estranged for her entire adult life. Jaimie is not aware of what Lindsay is name is. An accurints report has been requested to attempt to find the daughter, as per [place] statutes, she would be designated as the patient's decision-maker, if she chose to serve and if she were available. In the interim of determining that, Jaimie has agreed to be decision-maker. 1600: Jaimie later called me back and provided me with the daughter's name and telephone number as Lindsay Bean , but during that conversation questioned paternity, stating she did not believe he was the patient's daughter. I spoke with Janet, in the legal department, and discussed the discrepancy and was advised that we could request a paternity test if one were available. I contacted Lindsay by phone who confirmed that she is Mr. Dejesus's daughter and has been in close daily contact with him since he became ill. Lindsay denies any proof of paternity but was able to provide me with details of her interactions with him over the last 17 years to include his recent medical care, treatment regimen, recent emergency room visits and his departure from the emergency room AMA on 03/19/17. Per [place] statutes, as his daughter, she would be the legal proxy decision-maker. . Family Conference Time (mins): 15 Family Conference Location: Telephone Issues Discussed: * Palliative care role, purpose, approach * Additional medical, psychosocial, and spiritual history * Patients general health, functional status, and cognitive changes in the months leading up to the current hospitalization * Patient/family understanding of the current medical problems * Patient/family understanding of prognosis * Patients goals of care as best understood from advance directives and/or conversations and/or values * Current medical treatment options and benefits/burdens of those options * Likely scenarios comparing ongoing aggressive care with a transition to comfort measures only * Questions answered to the best of my ability * Palliative care contact information provided Assessment and Plan Disease Oriented Problem List: (1) Prostate cancer metastatic to lung (2) Hemoptysis Symptom Scale: (1) Dyspnea and respiratory abnormalities 0-10 Scale: Unable to quantify (patient intubated.) (2) Anxiety 0-10 Scale: Unable to quantify (patient intubated.) Pertinent Non-Medical Issues Psychosocial:He was born in [place] and completed his schooling there. 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 He moved to [place] many years ago. He was at one time but was many years ago per his sister. He does have a daughter from whom he is estranged, Lindsay, who was reportedly but no family members contacted can provide me with her address, state of residence or last name. He is very close to his niece, Jaimie, with whom he has been holding discussions regarding end of life plans and advance directives. Spiritual: Circus Train Supervisor available. Legal: No legal issues noted. Ethical issues impacting care: No ethical issues noted. . Important Contacts Niece: Jaimie Rodrigues Sister: Flakita Catherine Mother: Malaika Dejesus . . Prognosis His prognosis is extremely poor. The cancer has metastasized to the lung and is now blocking the right mainstem bronchus and progressing towards the left. In addition, aggressive prostate carcinoma has metastasized to the bone and a new lesion has been seen now in the brain. He has exhausted his lines of treatment and due to the aggressiveness of the cancer, the opinion of the oncologist is that hospice would be in the patient's best interest. The remote sensing advisor concurred with this opinion, as does the tractor trailer mechanic. At this time he is intubated and sedated, also requiring paralytics due to the right mainstem bronchus mass occluding the right lung to maintain stability of the ET tube. Family has made him a DO NOT RESUSCITATE but is coming to [place] Sunday morning to try to see the patient prior to his and may consider withdrawal of ventilator support at that time, should the patient survive. . Code Status: No Code Plan PLAN: Legal decision maker: I have spoken with his mother who declined to participate due to her age and infirmities, his sister Flakita who stated she has been estranged from him or some time and would prefer that her daughter be the point of contact and decision-maker, as she had personal knowledge of the patient's advanced directives and had held multiple conversations with him regarding his end-of-life wishes. As she is willing to participate and no other family members are available during the search for his daughter to see if she is willing to participate, Jaimie has agreed to be the decision-maker until the daughter can be found. Jaimie later called me back and provided me with the daughter's name and telephone number as Lindsay Bean , but during that conversation questioned paternity, stating she did not believe he was the patient's daughter. I spoke with Janet, in the legal department, and discussed the discrepancy and was advised that we could request a paternity test if one were available. I contacted Lindsay by phone who confirmed that she is Mr. Dejesus's daughter and has been in close daily contact with him since he became ill. Lindsay denies any proof of paternity but was able to provide me with details of her interactions with him over the last 17 years to include his recent medical care, treatment regimen, recent emergency room visits and his departure from the emergency room AM on 03/19/17. Per [place] statutes, as his daughter, she would be the legal proxy decision-maker. At this time both the niece, him and his daughter, Lindsay are in agreement that the patient should have a DO NOT RESUSCITATE status and goals are comfort oriented. Goals: Comfort oriented. CODE STATUS: DO NOT RESUSCITATE SYMPTOMS: * Dyspnea: Patient has been progressively more dyspneic, likely due to the advancing metastasis affecting his lungs and occlusion of his right mainstem bronchus. He is currently intubated and sedated pending arrival of the family to determine if they will agree to compassionate withdrawal of the ventilator and hospice care. * Anxiety: He is at significant risk for anxiety due to his precarious medical condition, risk of hemorrhage and poor prognosis. He is currently being maintained on sedation for comfort and ventilator synchrony. SUMMARY This is a 61-year-old male with metastatic prostate cancer to bone and brain and now lung. He is currently on his third line of treatment and given his current findings of lung masses and continued advancement in spite of aggressive treatment, it is opinion of oncology and pulmonology that further aggressive treatment in his case is futile and is most beneficial course would be hospice. He would be hospice appropriate if family goals are consistent. Palliative care will continue to follow the patient during hospital course as condition evolves, to assist patient/decision-maker with understanding of their medical conditions, weighing benefits/burdens of treatment options, for clarification of goals of treatment. Additionally will assist with any symptoms of palliative concern. . Thank you for the opportunity to participate in the care of Mr. Dejesus. Attestation To help prompt me to consider important information that might be impacting today's encounter and assessment, information from prior notes written by myself or my colleagues may have been "brought forward" into today's note. My signature on this note, however, is an attestation that I personally performed the exam, history, and/or decision-making noted today, and, unless otherwise indicated, the interactions with patient, family, and staff as well as the review of records all occurred today. I also attest that the listed assessment and stated plan reflect my best clinical judgment today based on the combination of historical information, prior notes, and today's exam/ interactions. When time spent is documented, it refers only to time spent today by the signer, or if indicated, combined time spent today by collaborating physician/nurse practitioner. . Meron Durant Mar 22, 2017 3:06 pm
[2017-03-22] MEDS: ARTIFICIAL TEARS OPTH OINT 3.5 APPLIC/3.5 GM TUBO EACH EYE SCH (21:00)
[2017-03-22] MEDS ORDERED: SODIUM CHLORIDE 0.9% FLUSH 10 ML FLUSH IV FLUSH SCH (21:00)
[2017-03-22] MEDS: DOCUSATE SODIUM 50 MG/SENNA 8.6 MG TAB PO SCH (21:33)
[2017-03-22 22:07] LABS: HEMATOCRIT 27.4 % (39.0-51.0); HEMOGLOBIN 8.7 GM/DL (13.0-17.0)
[2017-03-23] VITALS (56 sets, daily range): BP systolic 100–129; BP diastolic 65–81; PULSE 92–114; RESP 14–15; TEMP 98.4–98.6; O2SAT 91–98
[2017-03-23] MEDS: RESP: ALBUTEROL 2.5 MG/IPRATROPIUM 0.5 MG NEB (SCH) INH ×2 (03:17→09:11)
[2017-03-23] MEDS ORDERED: CHLORHEXIDINE GLUCONATE 2 % 1 PACK (2 CLOTHS) TOP SCH (04:00)
[2017-03-23 05:29] LABS: AUTOMATED NEUTROPHIL # 7.7 TH/MM3 (1.8-7.7); BASOPHIL % 0.1 % (0.0-2.0); EOSINOPHIL % 0.1 % (0.0-4.0); HEMATOCRIT 27.4 % (39.0-51.0); HEMOGLOBIN 8.7 GM/DL (13.0-17.0); LYMPH % 2.7 % (9.0-44.0); LYMPHOCYTE # 0.2 TH/MM3 (1.0-4.8); MEAN CELL VOLUME 79.8 FL (80.0-100.0); MEAN CORPUSCULAR HEMOGLOBIN 25.4 PG (27.0-34.0); MEAN CORPUSCULAR HGB CONC 31.8 % (32.0-36.0); MEAN PLATELET VOLUME 6.8 FL (7.0-11.0); MONO % 4.6 % (0.0-8.0); MONOCYTE # 0.4 TH/MM3 (0-0.9); NEUT % 92.5 % (16.0-70.0); PLATELET COUNT 527 TH/MM3 (150-450); RED BLOOD COUNT 3.43 MIL/MM3 (4.50-5.90); WHITE BLOOD COUNT 8.3 TH/MM3 (4.0-11.0)
[2017-03-23 05:40] LABS: INTERNATIONAL NORMALIZED RATIO 1.1 RATIO; PROTHROMBIN TIME - PATIENT 11.6 SEC (9.8-11.6)
[2017-03-23 05:43] LABS: CHLORIDE 105 MEQ/L (98-107); SODIUM (NA) 135 MEQ/L (136-145)
[2017-03-23 05:46] LABS: CALCIUM 7.7 MG/DL (8.5-10.1)
[2017-03-23 05:54] LABS: ALBUMIN 2.6 GM/DL (3.4-5.0); ALKALINE PHOSPHATASE 88 U/L (45-117); ALT (GPT) 12 U/L (12-78); AST (GOT) 19 U/L (15-37); BICARBONATE 22.3 MEQ/L (21.0-32.0); BLOOD UREA NITROGEN 14 MG/DL (7-18); CREATININE 0.47 MG/DL (0.60-1.30); GLOMERULAR FILTRATION RATE 180 ML/MIN (>89); GLUCOSE,RANDOM 142 MG/DL (74-106); MAGNESIUM 2.2 MG/DL (1.5-2.5); PHOSPHORUS 2.5 MG/DL (2.5-4.9); TOTAL BILIRUBIN ADULT 0.5 MG/DL (0.2-1.0); TOTAL PROTEIN 6.4 GM/DL (6.4-8.2)
[2017-03-23] MEDS: INSULIN NovoLIN REGULAR SUPPLEMENTAL SCALE SQ SCH ×3 (06:10→12:43)
[2017-03-23] MEDS: DEXAMETHASONE SOD PHOS 4 MG/ML VIAL IV PUSH SCH ×2 (06:11→14:22)
[2017-03-23] MEDS: SODIUM CHLOR 0.9% 1000 ML INJ 1,000 ML IV SCH (06:11)
--- NOTE | 2017-03-23 07:31 | HHI.CCPN ---
Subjective Remarks/Hospital Course This is a 61-year-old male. Documented is full code. Date of admission 03/22/2017. Past medical history includes metastatic prostate carcinoma diagnosed 2016 with neural invasion. Personal history of alcohol abuse with cessation, depression/anxiety, osteoarthritis, gastroesophageal reflux disease, radiation proctitis, right occipital brain metastases 2018 and chronic steroid use and narcotic use. Patient presented to [facility] with a prolonged history of hemoptysis. Patient recently completed his sixth round of prostate chemotherapy with Dr. Marsh. His current present symptoms hemoptysis began prior to March 19. He actually left AMA from the hospital at this time CT pulmonary angiogram today revealed no central pulmonary embolus. There was however near obstruction of the right mainstem bronchus. Massive mediastinal adenopathy, pulmonary parenchymal metastatic disease and widespread bony metastases. [facility] was called early this morning due to acute desaturations. Patient was emergently orotracheally intubated. Patient has a large fibrinous bloody mass in the right mainstem Subjective 2/2: Currently on cisatracurium drip at 1.5 mcg/kg per minute while on midazolam drip at 10 mg an hour and fentanyl drip at 200 g per hour for continuous airway with right mainstem bronchus mass/hemorrhagic unable to pass the left mainstem due to tumor Objective Vital Signs Date Time Temp Pulse Resp B/P (MAP) Pulse Ox O2 Delivery O2 Flow Rate FiO2 03/23/17 06:29 106 03/23/17 06:16 15 104/70 (81) 97 03/23/17 04:07 40 03/23/17 00:16 98.4 03/22/17 04:26 Nasal Cannula 2.00 Intake and Output 03/23/17 03/23/17 03/24/17 08:00 16:00 00:00 Output Total 650 ml Balance -650 ml Result Diagram: 03/23/17 0504 03/23/17 0504 Other Results Laboratory Tests Test 03/22/17 09:40 Blood Gas Puncture Site LT RADIAL Blood Gas Patient Temperature 37.0 Blood Gas HCO3 23 mmol/L (22-26) Blood Gas Base Excess -1.9 mmol/L (-2-2) Blood Gas Oxygen Saturation 98 % (90-100) Arterial Blood pH 7.37 (7.380-7.420) Arterial Blood Partial Pressure CO2 40 mmHg (38-42) Arterial Blood Partial Pressure O2 370 mmHg (61-120) Arterial Blood Oxygen Content 11.6 Vol % (12.0-20.0) Arterial Blood Carboxyhemoglobin 1.1 % (0-4) Arterial Blood Methemoglobin 1.0 % (0-2) Blood Gas Hemoglobin 7.7 G/DL (12.0-16.0) Oxygen Delivery Device VENTILATOR Blood Gas Ventilator Setting 15/600/PEEP 12 Blood Gas Inspired Oxygen 100 % Imaging Last Impressions CT Angiography 03/22/17 0000 Signed Impressions: Service Date/Time: March 02:06 - CONCLUSION: 1. Negative for pulmonary embolus. 2. Near-complete obstruction of the right mainstem bronchus. 3. Massive mediastinal adenopathy, pulmonary parenchymal metastatic disease and widespread bony metastases. Dl Henry MD Chest X-Ray 03/21/17 7376 Signed Impressions: Service Date/Time: March 00:18 - CONCLUSION: 1. Increasing elevation of the right hemidiaphragm possibly due to phrenic nerve involvement from known mediastinal tumor. Minimal basilar atelectasis. Dl Henry MD Objective Remarks GENERAL: 61-year-old male resting in bed in no acute distress intubated SKIN: Warm and dry. HEAD: Atraumatic. Normocephalic. EYES: Pupils equal and round. No scleral icterus. No injection or drainage. ENT: No nasal bleeding or discharge. Mucous membranes pink and moist. NECK: Trachea midline. No JVD. CARDIOVASCULAR: Regular rate and rhythm. S1, S2. No S4. Without murmur RESPIRATORY: No breath sounds right lung anne. Left lung anne are essentially clear without wheezing GASTROINTESTINAL: Abdomen soft, non-tender, nondistended. Hypoactive bowel sounds MUSCULOSKELETAL: Extremities without difficulty and peripheral edema. No obvious deformities. NEUROLOGICAL: Prior to intubation, Awake and alert. No obvious cranial nerve deficits. Motor grossly within normal limits. Five out of 5 muscle strength in the arms and legs. Pressure speech. Currently paralyzed on cisatracurium RASS - 5 Urinary Catheter: Yes Assessment to: Continue Doyle insert reason: Prolonged Immobilization Vascular Central Line Catheter: Yes Assessment to: Continue Date of Insertion: Mar 22, 2017 Line: Central Venous Catheter Side: Right Location: Internal, Jugular A/P Assessment and Plan Neuro/Psych: 9 mm right occipital mass/metastases Chronic opiate use Peripheral neuropathy Patient is currently on midazolam drip at 10 mg an hour/fentanyl drip at 2000 mg per sedation and cisatracurium at 1.5 mics grams per kilogram per minute while intubated Goal of RA SS of -5 Daily sedation vacation Patient is on morphine sulfate 15 mg twice a day for chronic pain management here currently on hold Continue gabapentin 100 mg by mouth twice a day CV: Currently normal saline at 100 cc now Status post 3 L normal saline wide open As needed labetalol for hypertension Norepinephrine if needed to maintain mean arterial pressure greater than equal to 65 Resp: Acute respiratory failure secondary to right mainstem mass PRVC 15/550/1.3/40 Ventilator bundle Albuterol/ipratropium aerosols every 4 hours with albuterol aerosols every 2 hours. Discussed Attempted to pass ET tube to left mainstem however mass/tumor tracked along with ET tube and unable to pass. ET tube currently at 24 cm. Saturations 100% Patient is currently paralyzed. Dr. Holcomb/pulmonology consult GI: Anorexia Patient is on Megestrol 40 mg by mouth twice a day for anorexia *Trickle feeds with vital 1.5 at 20 cc an hour maximum Lansoprazole for GI prophylaxis Docusate sodium/senna 1 tablet twice a day for bowel regimen : Doyle catheter will be placed for accurate I's and O's in a critically ill patient Endo: Sliding-scale insulin with Accu-Cheks to maintain euglycemia Low regimen q6h Renal: Creatinine currently within normal limits Monitor urine output Accurate I's and O's Heme: Prostate cancer metastases to bone/brain Microcytic anemia Thrombocytosis Dr. Marsh consulted.. Appreciate Enzalutamide 160 mg by mouth daily will be resumed ID: Broad-spectrum antibiotics including piperacillin tazobactam and vancomycin Blood Cultures 2 will be drawn 03/22 FEN: Hyponatremia Replace electrolytes as clinically indicated per ICU electrolyte protocol MSK: PT evaluate and treat Access -Right IJ CVL day 2 placed 2 Prophylaxis - GI -lansoprazole - DVT - SCD/holding pharmacological prophylaxis in light of bleeding lung mass Critical Care: The total critical care time was 35 minutes. Time to perform other separately billable procedures was not included in the critical care time. Discuss with palliative care, pulmonology and oncology. Terminal prognosis at the present time. Sr. will be here Sunday for likely withdrawal care at that time. Attempted to contact daughter who would be the healthcare proxy and her [place] law via palliative care at the present time Wolfgang St MD Mar 23, 2017 07:31
[2017-03-23] MEDS: fentaNYL DRIP 250 ML IV PRN (07:57)
[2017-03-23] MEDS: CHLORHEXIDINE 0.12% (ORAL KIT) 15 ML CUP MT SCH (08:05)
[2017-03-23] MEDS ORDERED: LANSOPRAZOLE SOLUTAB 30 MG TAB G-TUBE SCH (09:00)
[2017-03-23] MEDS: SODIUM CHLORIDE 0.9% FLUSH 10 ML FLUSH IV FLUSH SCH ×2 (09:00→09:31)
[2017-03-23] MEDS: XTANDI 160 MG PO SCH (09:00)
[2017-03-23] MEDS ORDERED: MULTIVITAMIN TAB PO SCH (09:00)
[2017-03-23] MEDS: MEGESTROL ACETATE 40 MG TAB PO SCH (09:30)
[2017-03-23] MEDS: GABAPENTIN 100 MG CAP PO SCH (09:30)
[2017-03-23] MEDS: DOCUSATE SODIUM 50 MG/SENNA 8.6 MG TAB PO SCH (09:31)
[2017-03-23] MEDS: ARTIFICIAL TEARS OPTH OINT 3.5 APPLIC/3.5 GM TUBO EACH EYE SCH (09:31)
[2017-03-23] MEDS: CISATRACURIUM INJ 100 MG in SODIUM CHLOR 0.9% 250 ML INJ 250 ML IV PRN (11:30)
--- NOTE | 2017-03-23 14:05 | MB ---
cc: Dinesh BRASWELL M.D. PULMONARY NOTE DATE 03/23/2017 HISTORY Mr. Dejesus is a 61-year-old white male with a documented history of widely metastatic prostate cancer, now involving his brain. I was asked to see him in consultation yesterday because he has a new obstruction of the right main stem bronchus on CT scan. I communicated with the critical care physician, Dr. St, who was attending to the patient after a [facility] was called on him earlier in the morning and the patient was having significant respiratory distress and had to be intubated emergently. Dr. St bronchoscoped him at that point and was able to identify a nearly totally obstructing mass in the right main stem bronchus partially obstructing the left as well. He was stabilized and ventilated. ASSESSMENT AND RECOMMENDATIONS I called Dr. Marsh his attending oncologist to see what more I could offer in this circumstance. Dr. Marsh feels that the patient is terminally ill and has exhausted his treatment options for this cancer. Even if this turned out to be a new malignancy in the lung, he would not be a candidate for additional therapy given his current critical state. I again communicated with Dr. St. I explained that I did not believe there was anything I could offer further in this circumstance to the patient. Palliative Care/Hospice Care was consulted. The family was contacted and the patient has been made a DNR. The family is planning to come in for the weekend and make further decisions with the oncologist and Hospice Care team. There really is nothing further that I can offer in this circumstance so I will not see him routinely, but if it is felt that I can be of any further assistance please call. MD TARYN Laguna/HOSSEIN /1:34 PM /1:40 PM
[2017-03-23] MEDS ORDERED: LORazepam 2 MG/ML VIAL IV PUSH ONE ×2 (15:00→15:30)
[2017-03-23] MEDS ORDERED: fentaNYL DRIP 250 ML IV PRN ×2 (15:00→15:30)
[2017-03-23] MEDS ORDERED: MORPHINE SULFATE 4 MG/ML INJ IV PUSH PRN (15:00)
[2017-03-23] MEDS ORDERED: MORPHINE SULFATE 8 MG/ML INJ IV PUSH PRN (15:00)
[2017-03-23] MEDS ORDERED: HYOSCYAMINE 0.5 MG/ML AMP IV PUSH ONE (15:00)
[2017-03-23] MEDS ORDERED: HYOSCYAMINE 0.5 MG/ML AMP IV PUSH PRN (15:30)
[2017-03-23] MEDS ORDERED: MORPHINE SULFATE 4 MG/ML INJ IV PUSH ONE (15:30)
[2017-03-23] MEDS ORDERED: FUROSEMIDE 20 MG/2 ML VIAL IV PUSH PRN (15:30)
[2017-03-23] MEDS ORDERED: BISACODYL 10 MG SUPP RECTAL PRN (15:30)
[2017-03-23] MEDS ORDERED: ACETAMINOPHEN 650 MG SUPP RECTAL PRN (15:30)
[2017-03-23] MEDS ORDERED: LORazepam 2 MG/ML VIAL IV PUSH PRN ×3 (15:30)
--- NOTE | 2017-03-23 15:42 | HHI.HCPN ---
Reason for visit a. To assist with evaluation and management of symptoms including: Dyspnea, anxiety b. To assist medical decision maker(s) with: better understanding of current medical conditions; weighing benefits/burdens of medical treatment options; making medical treatment decisions. (Meron Durant) Subjective/Interval History Remains on ventilator, sedated, paralyzed. Family arriving today to withdraw ventilator support. I discussed progress with Dr. St, the benefits sales consultant managing his care, and the family is goal of comfort care with withdrawal of ventilator. He is in agreement with this plan and opines that the patient has a very high risk of bleeding due to the extensive metastasis and friable mass and notes that he may need a higher than normal dose of opiates to control symptoms of dyspnea, particularly in the setting of possible hemorrhage. This was also reviewed with Dr. Gonsales and the palliative care team for input and it was determined that not disturbing the ET tube would provide the patient the best opportunity to prevent bleeding, hemorrhage and the subsequent dyspnea and anxiety associated with that. That plan was also reviewed with Dr. St who agreed that that was likely safer for the patient than attempting to remove the ET tube. Family/friend interactions I was contacted by the daughter, Lindsay Bean, announcing her arrival at [facility] and escorted her and her , Jasvir, to the consultation area where I provided an update of patient's clinical course, findings and prognosis. I reviewed previous consultants and intensivists findings and opinions. The family stated that their goal was comfort oriented and would not wish to pursue further aggressive care, given her father's diagnosis, prognosis and discussions as she had held with him regarding his advanced directive wishes. I explained the withdrawal process and provided anticipatory guidance for the upcoming events. All questions were answered. I then discussed withdrawal of care again with Dr. St and Dr. Burk who agreed that the patient' s prognosis was extremely poor considering his terminal diagnosis and large friable mass which is occluding the right main bronchus. I reviewed the reasons for leaving the ET tube in place during his withdrawal, i.e. preventing bleeding and maintaining an open airway. It was the opinion of Dr. St that with movement the mass could also include the left bronchus, which is why he had placed the patient on a paralytic, in addition to fentanyl and Versed. Exhibits were signed, reviewed and explained to the patient's daughter. She completed and signed exhibits certifying she wished to remove ventilator support. At that time (14:20) the paralytic was turned off. Continued anticipatory guidance was provided to the daughter throughout the procedure. . (Meron Durant) Advance Directives Living Will: Never completed Health Care Surrogate: Never completed Durable Power of Avionics System Engineer: Never completed (Meron Durant) Advance Directive Specifics Health Care Surrogate(s): No healthcare surrogate paperwork is available. Documented care wishes: No documentation available. . (Meron Durant) Objective Vital Signs Date Time Temp Pulse Resp B/P (MAP) Pulse Ox O2 Delivery O2 Flow Rate FiO2 03/23/17 13:30 102 15 121/75 (90) 91 03/23/17 13:00 104 15 122/76 (91) 94 03/23/17 12:30 102 15 127/81 (96) 98 03/23/17 12:00 98.4 104 15 119/75 (90) 98 03/23/17 12:00 40 18 12:00 104 03/23/17 11:30 106 15 122/75 (91) 98 03/23/17 11:00 106 15 120/75 (90) 98 18 10:35 97 40 18 10:30 108 15 122/74 (90) 97 03/23/17 10:00 108 03/23/18 10:00 108 15 125/72 (89) 97 03/23/17 09:30 108 15 116/73 (87) 98 03/23/17 09:00 108 15 124/73 (90) 96 18 08:30 108 14 119/73 (88) 96 03/23/17 08:00 103 03/23/17 08:00 98.6 102 14 129/81 (97) 97 18 08:00 40 18 07:46 102 15 116/76 (89) 97 18 07:35 97 40 18 07:31 104 14 109/77 (88) 97 03/23/17 07:16 104 14 114/75 (88) 97 18 07:01 104 14 111/70 (84) 97 2/2/18 06:29 106 2/2/18 06:16 106 15 104/70 (81) 97 2/2/18 06:01 106 15 114/68 (83) 96 2/2/18 05:46 106 14 113/69 (84) 96 2/2/18 05:31 108 14 111/67 (82) 97 2/2/18 05:16 108 14 107/73 (84) 97 2/2/18 05:01 106 15 102/67 (79) 96 2/2/18 04:46 108 15 107/70 (82) 96 2/2/18 04:31 108 15 102/66 (78) 96 2/2/18 04:16 108 14 109/69 (82) 95 2/2/18 04:07 96 40 2/2/18 04:01 108 14 100/68 (79) 97 2/2/18 04:00 105 2/2/18 04:00 40 2/2/18 03:46 106 14 111/67 (82) 97 2/2/18 03:31 106 14 107/71 (83) 96 2/2/18 03:16 108 14 110/70 (83) 95 2/2/18 03:01 108 14 109/68 (82) 96 2/2/18 02:46 108 15 111/71 (84) 95 2/2/18 02:31 108 15 110/69 (83) 96 2/2/18 02:16 110 15 108/69 (82) 95 2/2/18 02:01 110 15 109/67 (81) 95 2/2/18 02:00 108 2/2/18 01:46 110 14 105/65 (78) 95 2/2/18 01:31 112 15 113/66 (82) 94 2/2/18 01:16 114 15 111/71 (84) 94 2/2/18 01:03 95 40 2/2/18 01:01 114 15 118/69 (85) 94 2/2/18 00:46 114 15 117/70 (86) 95 2/2/18 00:32 40 2/2/18 00:31 112 15 117/72 (87) 96 2/2/18 00:16 98.4 102 14 118/74 (89) 97 2/2/18 00:15 102 14 97 2/18 00:01 104 14 116/74 (88) 96 218 00:01 104 14 116/74 (88) 96 2/18 00:00 104 14 96 2/18 00:00 92 218 23:46 102 14 115/74 (88) 96 18 23:31 102 15 112/74 (87) 97 03/22/17 23:16 102 15 107/74 (85) 98 03/22/17 23:01 100 15 102/74 (83) 98 03/22/17 22:46 98 15 119/79 (92) 98 03/22/17 22:31 98 15 105/70 (82) 98 03/22/17 22:16 96 15 109/80 (90) 99 03/22/17 22:16 99 40 03/22/17 22:01 96 17 103/69 (80) 99 03/22/17 22:00 96 03/22/17 21:45 98 15 106/77 (87) 99 03/22/17 21:30 97.8 98 15 110/78 (89) 99 03/22/17 21:15 96 15 109/76 (87) 99 03/22/17 21:12 97.6 97 15 109/76 98 03/22/17 21:00 96 14 104/76 (85) 99 03/22/17 20:45 96 14 109/80 (90) 100 03/22/17 20:30 96 15 111/81 (91) 99 03/22/17 20:15 98 15 112/80 (91) 100 03/22/17 20:00 98 14 111/75 (87) 100 03/22/17 20:00 50 03/22/17 20:00 98 2/18 19:30 98 15 114/79 (91) 100 03/22/17 19:25 100 50 03/22/17 19:15 98 14 109/78 (88) 100 03/22/17 19:00 100 14 97/74 (82) 100 03/22/17 18:30 97.5 98 15 99/74 100 03/22/17 18:12 98.6 101 15 105/69 100 03/22/17 18:05 98.6 100 16 105/69 100 2//18 18:00 112 03/22/17 18:00 112 15 105/69 (81) 100 03/22/17 17:45 100 14 112/81 (91) 100 03/22/17 17:30 98 14 109/71 (84) 100 03/22/17 17:15 98 15 103/80 (88) 100 03/22/17 17:00 98 15 102/76 (85) 100 03/22/17 16:45 98 15 111/77 (88) 100 03/22/17 16:37 100 60 03/22/17 16:30 98 15 105/76 (86) 100 03/22/17 16:00 98 03/22/17 16:00 97.3 98 14 119/80 (93) 100 03/22/17 16:00 60 03/22/17 15:48 98 15 103/75 (84) 100 03/22/17 15:45 97.3 96 16 119/80 100 03/22/17 15:33 96 14 107/78 (88) 100 03/22/17 15:32 97.6 97 16 107/78 100 Intake & Output 03/23/17 03/23/17 07:00 19:00 Intake Total 650 ml 550 ml Output Total 650 ml 175.0 ml Balance 0 ml 375.0 ml IV Total 250 ml 550 ml Packed Cells 400 ml Output Urine Total 650 ml Tube Feeding Residual Discard 175.0 ml Physical Exam CONSTITUTIONAL/GENERAL: This is an adequately nourished patient, intubated, sedated, paralyzed. TUBES/LINES/DRAINS: ETT, left ACF PIV, right IJ central line, Doyle, NG tube to right nare SKIN: Pale, damp, intact. HEAD: Atraumatic. Normocephalic. EYES: Pupils equal and round and reactive. No scleral icterus. No injection or drainage. Fundi not examined. ENT: Nose without bleeding or purulent drainage. NECK: Trachea midline. Supple, nontender. No palpable thyroid enlargement or nodularity. CARDIOVASCULAR: Regular rate and rhythm without murmurs, gallops, or rubs. No JVD. Peripheral pulses symmetric. RESPIRATORY/CHEST: Lungs diminished, right greater than left. No adventitious sounds auscultated. GASTROINTESTINAL: Abdomen soft,nondistended. Bowel sounds present. GENITOURINARY: Without palpable bladder distension. Doyle catheter in place. MUSCULOSKELETAL: Extremities without clubbing, cyanosis, or edema. No mottling or clubbing. NEUROLOGICAL: Intubated, sedated, paralyzed. PSYCHIATRIC: Sedated. . (Meron Durant) Diagnostic Tests Laboratory Laboratory Tests Test 03/22/17 00:17 03/22/17 00:35 03/22/17 05:47 03/22/17 05:55 White Blood Count 8.4 TH/MM3 (4.0-11.0) Red Blood Count 3.69 MIL/MM3 (4.50-5.90) Hemoglobin 9.0 GM/DL (13.0-17.0) 9.1 GM/DL (13.0-17.0) Hematocrit 28.3 % (39.0-51.0) 27.8 % (39.0-51.0) Mean Corpuscular Volume 76.7 FL (80.0-100.0) Mean Corpuscular Hemoglobin 24.5 PG (27.0-34.0) Mean Corpuscular Hemoglobin Concent 32.0 % (32.0-36.0) Red Cell Distribution Width 21.8 % (11.6-17.2) Platelet Count 604 TH/MM3 (150-450) Mean Platelet Volume 7.0 FL (7.0-11.0) Neutrophils (%) (Auto) 81.7 % (16.0-70.0) Lymphocytes (%) (Auto) 6.4 % (9.0-44.0) Monocytes (%) (Auto) 10.1 % (0.0-8.0) Eosinophils (%) (Auto) 0.5 % (0.0-4.0) Basophils (%) (Auto) 1.3 % (0.0-2.0) Neutrophils # (Auto) 7.0 TH/MM3 (1.8-7.7) Lymphocytes # (Auto) 0.5 TH/MM3 (1.0-4.8) Monocytes # (Auto) 0.8 TH/MM3 (0-0.9) Eosinophils # (Auto) 0.0 TH/MM3 (0-0.4) Basophils # (Auto) 0.1 TH/MM3 (0-0.2) CBC Comment AUTO DIFF Differential Comment AUTO DIFF CONFIRMED Platelet Estimate HIGH (NORMAL) Platelet Morphology Comment NORMAL (NORMAL) Ovalocytes 1+ (NORMAL) Blood Urea Nitrogen 14 MG/DL (7-18) Creatinine 0.52 MG/DL (0.60-1.30) Random Glucose 128 MG/DL (74-106) Total Protein 8.3 GM/DL (6.4-8.2) Albumin 3.4 GM/DL (3.4-5.0) Calcium Level 8.8 MG/DL (8.5-10.1) Magnesium Level 2.3 MG/DL (1.5-2.5) Alkaline Phosphatase 107 U/L (45-117) Aspartate Amino Transf (AST/SGOT) 34 U/L (15-37) Alanine Aminotransferase (ALT/SGPT) 12 U/L (12-78) Total Bilirubin 0.4 MG/DL (0.2-1.0) Sodium Level 131 MEQ/L (136-145) Potassium Level 4.2 MEQ/L (3.5-5.1) Chloride Level 98 MEQ/L (98-107) Carbon Dioxide Level 25.1 MEQ/L (21.0-32.0) Anion Gap 8 MEQ/L (5-15) Estimat Glomerular Filtration Rate 161 ML/MIN (>89) Blood Gas Puncture Site RT RADIAL RT RADIAL Blood Gas Patient Temperature 98.6 37.0 Blood Gas HCO3 24 mmol/L (22-26) 23 mmol/L (22-26) Blood Gas Base Excess 0.8 mmol/L (-2-2) -0.3 mmol/L (-2-2) Blood Gas Oxygen Saturation 91 % (90-100) 91 % (90-100) Arterial Blood pH 7.51 (7.380-7.420) 7.49 (7.380-7.420) Arterial Blood Partial Pressure CO2 30 mmHG (38-42) 30 mmHg (38-42) Arterial Blood Partial Pressure O2 59 mmHG (61-120) 60 mmHg (61-120) Arterial Blood Oxygen Content 10.9 Vol % (12.0-20.0) 10.9 Vol % (12.0-20.0) Arterial Blood Carboxyhemoglobin 1.8 % (0-4) 1.6 % (0-4) Arterial Blood Methemoglobin 0.6 % (0-2) 0.6 % (0-2) Blood Gas Hemoglobin 8.5 G/DL (12.0-16.0) 8.5 G/DL (12.0-16.0) Blood Gas Inspired Oxygen 21 % Oxygen Delivery Device PRB Blood Gas Liter Flow 15 L/M Test 03/22/17 09:40 03/22/17 10:05 03/22/17 11:05 03/22/17 11:10 Blood Gas Puncture Site LT RADIAL Blood Gas Patient Temperature 37.0 Blood Gas HCO3 23 mmol/L (22-26) Blood Gas Base Excess -1.9 mmol/L (-2-2) Blood Gas Oxygen Saturation 98 % (90-100) Arterial Blood pH 7.37 (7.380-7.420) Arterial Blood Partial Pressure CO2 40 mmHg (38-42) Arterial Blood Partial Pressure O2 370 mmHg (61-120) Arterial Blood Oxygen Content 11.6 Vol % (12.0-20.0) Arterial Blood Carboxyhemoglobin 1.1 % (0-4) Arterial Blood Methemoglobin 1.0 % (0-2) Blood Gas Hemoglobin 7.7 G/DL (12.0-16.0) Oxygen Delivery Device VENTILATOR Blood Gas Ventilator Setting 15/600/PEEP 12 Blood Gas Inspired Oxygen 100 % Prothrombin Time 12.6 SEC (9.8-11.6) Prothromb Time International Ratio 1.2 RATIO Activated Partial Thromboplast Time 40.6 SEC (24.3-30.1) Fibrinogen 496 mg/dL (227-377) Urine Collection Type CLEAN CATCH Urine Color YELLOW (YELLW/STRAW) Urine Turbidity CLEAR (CLEAR) Urine pH 6.0 (5.0-8.5) Urine Specific [place] GREATER THAN 1.035 Urine Protein NEG mg/dL (NEG-TRACE) Urine Glucose (UA) NEG mg/dL (NEG) Urine Ketones NEG mg/dL (NEG) Urine Occult Blood NEG (NEG) Urine Nitrite NEG (NEG) Urine Bilirubin NEG (NEG) Urine Leukocyte Esterase NEG (NEG) Urine WBC 0-2 /hpf (0-5) Urine Mucus RARE /lpf (OCC) Microscopic Urinalysis Comment CULT NOT INDICATED Nasal Screen MRSA (PCR) MRSA NOT DETECTED (NOT Hemoglobin 6.8 GM/DL (13.0-17.0) Hematocrit 21.9 % (39.0-51.0) Test 03/22/17 22:00 03/23/17 05:04 Hemoglobin 8.7 GM/DL (13.0-17.0) 8.7 GM/DL (13.0-17.0) Hematocrit 27.4 % (39.0-51.0) 27.4 % (39.0-51.0) White Blood Count 8.3 TH/MM3 (4.0-11.0) Red Blood Count 3.43 MIL/MM3 (4.50-5.90) Mean Corpuscular Volume 79.8 FL (80.0-100.0) Mean Corpuscular Hemoglobin 25.4 PG (27.0-34.0) Mean Corpuscular Hemoglobin Concent 31.8 % (32.0-36.0) Red Cell Distribution Width 21.0 % (11.6-17.2) Platelet Count 527 TH/MM3 (150-450) Mean Platelet Volume 6.8 FL (7.0-11.0) Neutrophils (%) (Auto) 92.5 % (16.0-70.0) Lymphocytes (%) (Auto) 2.7 % (9.0-44.0) Monocytes (%) (Auto) 4.6 % (0.0-8.0) Eosinophils (%) (Auto) 0.1 % (0.0-4.0) Basophils (%) (Auto) 0.1 % (0.0-2.0) Neutrophils # (Auto) 7.7 TH/MM3 (1.8-7.7) Lymphocytes # (Auto) 0.2 TH/MM3 (1.0-4.8) Monocytes # (Auto) 0.4 TH/MM3 (0-0.9) Eosinophils # (Auto) 0.0 TH/MM3 (0-0.4) Basophils # (Auto) 0.0 TH/MM3 (0-0.2) CBC Comment DIFF FINAL Differential Comment Prothrombin Time 11.6 SEC (9.8-11.6) Prothromb Time International Ratio 1.1 RATIO Activated Partial Thromboplast Time 37.0 SEC (24.3-30.1) Blood Urea Nitrogen 14 MG/DL (7-18) Creatinine 0.47 MG/DL (0.60-1.30) Random Glucose 142 MG/DL (74-106) Total Protein 6.4 GM/DL (6.4-8.2) Albumin 2.6 GM/DL (3.4-5.0) Calcium Level 7.7 MG/DL (8.5-10.1) Phosphorus Level 2.5 MG/DL (2.5-4.9) Magnesium Level 2.2 MG/DL (1.5-2.5) Alkaline Phosphatase 88 U/L (45-117) Aspartate Amino Transf (AST/SGOT) 19 U/L (15-37) Alanine Aminotransferase (ALT/SGPT) 12 U/L (12-78) Total Bilirubin 0.5 MG/DL (0.2-1.0) Sodium Level 135 MEQ/L (136-145) Potassium Level 3.9 MEQ/L (3.5-5.1) Chloride Level 105 MEQ/L (98-107) Carbon Dioxide Level 22.3 MEQ/L (21.0-32.0) Anion Gap 8 MEQ/L (5-15) Estimat Glomerular Filtration Rate 180 ML/MIN (>89) Lactic Acid Level 2.6 mmol/L (0.4-2.0) . (Meron Durant) Result Diagram: 03/23/17 0504 03/23/17 0504 Microbiology Microbiology Date/Time Source Procedure Growth Status 03/22/17 11:20 Blood Peripheral Aerobic Blood Culture - Preliminary NO GROWTH IN 1 DAY Resulted 03/22/17 11:20 Blood Peripheral Anaerobic Blood Culture - Preliminary NO GROWTH IN 1 DAY Resulted 03/22/17 11:10 Blood Peripheral Aerobic Blood Culture - Preliminary NO GROWTH IN 1 DAY Resulted 03/22/17 11:10 Blood Peripheral Anaerobic Blood Culture - Preliminary NO GROWTH IN 1 DAY Resulted 03/22/17 11:05 Urine Catheterized Urine Urine Culture - Preliminary NO GROWTH IN 24 HOURS. Resulted Imaging Last Impressions Chest X-Ray 03/22/17 0839 Signed Impressions: Service Date/Time: March 09:25 - CONCLUSION: 1. Interval intubation and placement of right internal jugular central venous line with no pneumothorax. 2. New infiltrate in the right perihilar region and right lung base concerning for pneumonia. 3. Multiple bilateral nodules consistent with metastatic disease. 4. Sclerotic metastatic disease again noted to be osseous structures. Álvaro Sylvester MD CT Angiography 03/22/17 0000 Signed Impressions: Service Date/Time: March 02:06 - CONCLUSION: 1. Negative for pulmonary embolus. 2. Near-complete obstruction of the right mainstem bronchus. 3. Massive mediastinal adenopathy, pulmonary parenchymal metastatic disease and widespread bony metastases. Dl Henry MD Abdomen X-Ray 03/22/17 0000 Signed Impressions: Service Date/Time: March 09:25 - CONCLUSION: 1. Nasogastric tube in place. 2. Nonspecific, nonobstructive bowel gas pattern most characteristic of an ileus. 3. Widespread sclerotic osseous metastasis. 4. Elevation of the right hemidiaphragm. Álvaro Sylvester MD . Procedures 03/22/17: Orotracheal intubation. 03/22/17: Right IJ central line placement. . (Meron Durant) Assessment and Plan Disease Oriented Problem List: (1) Prostate cancer metastatic to lung (2) Hemoptysis Symptom Scale: (1) Dyspnea and respiratory abnormalities 0-10 Scale: Unable to quantify (patient intubated.) (2) Anxiety 0-10 Scale: Unable to quantify (patient intubated.) Pertinent Non-Medical Issues Psychosocial:He was born in [place] and completed his schooling there. 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 He moved to [place] many years ago. He was never . He does have a daughter Lindsay, who is currently serving as his healthcare proxy. Spiritual: [employer] Supervisor available. Legal: No legal issues noted. Ethical issues impacting care: No ethical issues noted. . Important Contacts Daughter: Niece: Jaimie Rodrigues Sister: Flakita Catherine Mother: Malaika Dejesus . . Prognosis His prognosis is extremely poor. The cancer has metastasized to the lung and is now blocking the right mainstem bronchus and progressing towards the left. In addition, aggressive prostate carcinoma has metastasized to the bone and a new lesion has been seen now in the brain. He has exhausted his lines of treatment and due to the aggressiveness of the cancer, the opinion of the oncologist is that hospice would be in the patient's best interest. The welder apprentice arc concurred with this opinion, as does the benefits sales consultant. At this time he is intubated and sedated, also requiring paralytics due to the right mainstem bronchus mass occluding the right lung to maintain stability of the ET tube. Family has made him a DO NOT RESUSCITATE but is coming to [place] Sunday to try to see the patient prior to his and may consider withdrawal of ventilator support at that time, should the patient survive. . Code Status: No Code Plan PLAN: Legal decision maker: Patient's daughter, Lindsay Bean is the proxy decision-maker per [place] statutes. His niece, Jaimie, had previously been identified as his contact but any telephone conversation with her she stated that since Lindsay was severe and able to make decisions she would defer to her. This was also reviewed with the patient's sister, Flakita and she agreed that Lindsay should be the patient's decision-maker. Goals: Comfort oriented. CODE STATUS: DO NOT RESUSCITATE SYMPTOMS: * Dyspnea: Family has agreed to withdrawal of life support and exhibits have been signed and witnessed. Opiate and benzodiazepine orders have been initiated for treatment of discomfort or dyspnea which could occur during or after the withdrawal process. Because of the friable mass in his right mainstem bronchus, it was determined by the specialists involved in his care that he had a very high risk of bleeding. To prevent hemorrhaging it was felt that discontinuation of the ET tube from the ventilator and leaving the ET tube intact would be the most effective way to prevent disruption of the friable mass and potential hemorrhage. As it was felt that his dyspnea might be increased by the resistance of breathing through the ET tube, additional opiates were made available to ensure patient comfort. * Anxiety: He is at significant risk for anxiety due to his precarious medical condition, risk of hemorrhage and poor prognosis. He will remain on a Versed drip with additional Ativan available as needed for additional anxiety symptoms. Palliative care will continue to follow the patient during hospital course as condition evolves, to assist patient/decision-maker with understanding of their medical conditions, weighing benefits/burdens of treatment options, for clarification of goals of treatment. Additionally will assist with any symptoms of palliative concern. . (Meron Durant) Collaborating MD Comments Chart reviewed. Patient examined personally by me. Case discussed with palliative care SENIOR TELECOMMUNICATIONS TECHNICIAN. Above SENIOR TELECOMMUNICATIONS TECHNICIAN note reviewed and I concur. At time of my visit, paralytic just recently discontinued. Patient remains on fentanyl and midazolam drips -- does not respond to noxious stimulus at this point. Daughter is at bedside. She is now the proxy health care decision maker. Afebrile. Slightly tachycardic. RR 15 on vent. 02 sats in 90s on vent. No oropharyngeal or nasal bleeding visible. RRR without audible murmur. Diminished breath sounds bilaterally with less air movement on right. Abdomen benign. CXR shows new Right sided infiltrate and metastatic disease. Daughter has decided that given the patient's current medical status and poor prognosis that patient's goals/preferences would best be honored by foregoing further aggressive treatment, withdrawaing from life support, and transitioning to "comfort measures only." Discussed specifics of this case with palliative care team. Given the size of the bronchial mass and risk of bleeding and/or complete airway obstruction, it would serve the patient better to withdraw life support by disconnecting the vent, rather than extubating (removing the ET tube). However, the tube left in will require more work of breathing. We anticipate a greater medication need than normal to help ensure that the patient is not subjected to unnecessary suffering in the process. Assisted SENIOR TELECOMMUNICATIONS TECHNICIAN with orders for withdrawal of life support and post withdrawal comfort medications. Will address pain, dyspnea by continuing the fentanyl and midazolam drips with increased titration range and also allow prns of morphine and lorazepam if needed. Anticipatory guidance provided to daughter. Should patient survive overnight will recommend hospice enrollment and care center placement. TIME: Total floor time by MD and DARCY over 50 minutes including chart review, patient exam, providing anticipatory guidance to daughter on withdrawal of life support; telephone conversations with benefits sales consultant, and collaboration with nursing and respiratory therapy regarding the orders for withdrawal. Over 50% of time spent on counseling/coordination of care. (Abelardo Gonsales MD) Meron Durant Mar 23, 2017 15:42 Abelardo Gonsales MD Mar 23, 2017 19:14
[2017-03-23] MEDS: MIDAZOLAM 100 MG/100 ML INJ 100 ML IV PRN (17:47)
--- NOTE | 2017-03-24 00:10 | HHI.DS ---
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 ICD Code: C61 - Malignant neoplasm of prostate; C79.40 - Secondary malignant neoplasm of unspecified part of nervous system Diagnosis: Principal (4) Anorexia ICD Code: R63.0 - Anorexia Diagnosis: Secondary (5) Microcytic anemia ICD Code: D50.9 - Iron deficiency anemia, unspecified Diagnosis: Secondary (6) Thrombocytosis ICD Code: D47.3 - Essential (hemorrhagic) thrombocythemia Diagnosis: Secondary (7) Hyponatremia ICD Code: E87.1 - Hypo-osmolality and hyponatremia Diagnosis: Secondary (8) Peripheral neuropathy ICD Code: G62.9 - Polyneuropathy, unspecified Procedures Right IJ central venous line 03/22/17 (Dr. St) Intubation 03/22/17 (Dr. St) Bronchoscopy 03/22/17 (Dr. St) CBC/BMP: 03/23/17 0504 03/23/17 0504 Significant Findings Laboratory Tests Test 03/22/17 00:17 03/22/17 00:35 03/22/17 05:47 03/22/17 05:55 Red Blood Count 3.69 MIL/MM3 (4.50-5.90) Hemoglobin 9.0 GM/DL (13.0-17.0) 9.1 GM/DL (13.0-17.0) Hematocrit 28.3 % (39.0-51.0) 27.8 % (39.0-51.0) Mean Corpuscular Volume 76.7 FL (80.0-100.0) Mean Corpuscular Hemoglobin 24.5 PG (27.0-34.0) Red Cell Distribution Width 21.8 % (11.6-17.2) Platelet Count 604 TH/MM3 (150-450) Neutrophils (%) (Auto) 81.7 % (16.0-70.0) Lymphocytes (%) (Auto) 6.4 % (9.0-44.0) Monocytes (%) (Auto) 10.1 % (0.0-8.0) Lymphocytes # (Auto) 0.5 TH/MM3 (1.0-4.8) Platelet Estimate HIGH (NORMAL) Ovalocytes 1+ (NORMAL) Creatinine 0.52 MG/DL (0.60-1.30) Random Glucose 128 MG/DL (74-106) Total Protein 8.3 GM/DL (6.4-8.2) Sodium Level 131 MEQ/L (136-145) Arterial Blood pH 7.51 (7.380-7.420) 7.49 (7.380-7.420) Arterial Blood Partial Pressure CO2 30 mmHG (38-42) 30 mmHg (38-42) Arterial Blood Partial Pressure O2 59 mmHG (61-120) 60 mmHg (61-120) Arterial Blood Oxygen Content 10.9 Vol % (12.0-20.0) 10.9 Vol % (12.0-20.0) Blood Gas Hemoglobin 8.5 G/DL (12.0-16.0) 8.5 G/DL (12.0-16.0) Test 03/22/17 09:40 03/22/17 10:05 03/22/17 11:05 03/22/17 11:10 Arterial Blood pH 7.37 (7.380-7.420) Arterial Blood Partial Pressure O2 370 mmHg (61-120) Arterial Blood Oxygen Content 11.6 Vol % (12.0-20.0) Blood Gas Hemoglobin 7.7 G/DL (12.0-16.0) Prothrombin Time 12.6 SEC (9.8-11.6) Activated Partial Thromboplast Time 40.6 SEC (24.3-30.1) Fibrinogen 496 mg/dL (227-377) Urine Specific [place] GREATER THAN 1.035 Hemoglobin 6.8 GM/DL (13.0-17.0) Hematocrit 21.9 % (39.0-51.0) Test 03/22/17 22:00 03/23/17 05:04 Hemoglobin 8.7 GM/DL (13.0-17.0) 8.7 GM/DL (13.0-17.0) Hematocrit 27.4 % (39.0-51.0) 27.4 % (39.0-51.0) Red Blood Count 3.43 MIL/MM3 (4.50-5.90) Mean Corpuscular Volume 79.8 FL (80.0-100.0) Mean Corpuscular Hemoglobin 25.4 PG (27.0-34.0) Mean Corpuscular Hemoglobin Concent 31.8 % (32.0-36.0) Red Cell Distribution Width 21.0 % (11.6-17.2) Platelet Count 527 TH/MM3 (150-450) Mean Platelet Volume 6.8 FL (7.0-11.0) Neutrophils (%) (Auto) 92.5 % (16.0-70.0) Lymphocytes (%) (Auto) 2.7 % (9.0-44.0) Lymphocytes # (Auto) 0.2 TH/MM3 (1.0-4.8) Activated Partial Thromboplast Time 37.0 SEC (24.3-30.1) Creatinine 0.47 MG/DL (0.60-1.30) Random Glucose 142 MG/DL (74-106) Albumin 2.6 GM/DL (3.4-5.0) Calcium Level 7.7 MG/DL (8.5-10.1) Sodium Level 135 MEQ/L (136-145) Lactic Acid Level 2.6 mmol/L (0.4-2.0) Imaging Last Impressions CT Angiography 03/22/17 0000 Signed Impressions: Service Date/Time: March 02:06 - CONCLUSION: 1. Negative for pulmonary embolus. 2. Near-complete obstruction of the right mainstem bronchus. 3. Massive mediastinal adenopathy, pulmonary parenchymal metastatic disease and widespread bony metastases. Dl Henry MD Chest X-Ray 03/21/17 1493 Signed Impressions: Service Date/Time: March 00:18 - CONCLUSION: 1. Increasing elevation of the right hemidiaphragm possibly due to phrenic nerve involvement from known mediastinal tumor. Minimal basilar atelectasis. Dl Henry MD Hospital Course This is a 61-year-old male. Date of admission 03/22/2017. 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 Personal history of alcohol abuse with cessation, depression/anxiety , osteoarthritis, gastroesophageal reflux disease, radiation proctitis, right occipital brain metastases 2017 and chronic steroid use and narcotic use. Patient presented to [facility] with a prolonged history of hemoptysis. Patient recently completed his sixth round of prostate chemotherapy with Dr. Marsh. His current present symptoms hemoptysis began prior to March 19. He actually left AMA from the hospital at this time CT pulmonary angiogram today revealed no central pulmonary embolus. There was however near obstruction of the right mainstem bronchus. Massive mediastinal adenopathy, pulmonary parenchymal metastatic disease and widespread bony metastases. [facility] was called early this morning due to acute desaturations. Patient was emergently orotracheally intubated. Patient has a large fibrinous bloody mass in the right mainstem. Bronchoscope could not be passed beyond the mass and ETT could not be advanced into the Left mainstem. Palliative care medicine consultants discussed with patients healthcare proxy, Lindsay Bean, who requested transition to comfort measures. Paralytic drip was discontinued. Sedative and anxiolytic medications were maintained for patient comfort. Mechanical ventilation was discontinued and patient 03/23/17 at 19:13 Jodee Carlin MD Mar 24, 2017 00:10
== END 2017-03-23 19:15 | disposition expired | DRG 208 ==
LOC: PHED 23:53 → PHEDA 03-22 01:42 → PH3A 03-22 02:15 → PHICU 03-22 06:55
PROVIDERS: ADMIT Internal Medicine Critical Care Medicine; ATTEND Internal Medicine Critical Care Medicine
PROC: 5A1945Z Respiratory Ventilation, 24-96 Consecutive Hours (ICD-10-PCS; principal; 2017-03-22)
PROC: 0BH17EZ Insertion of Endotracheal Airway into Trachea, Via Natural or Artificial Opening (ICD-10-PCS; 2017-03-22)
PROC: 02HV33Z Insertion of Infusion Device into Superior Vena Cava, Percutaneous Approach (ICD-10-PCS; 2017-03-22)
PROC: B543ZZA Ultrasonography of Right Jugular Veins, Guidance (ICD-10-PCS; 2017-03-22)
PROC: 0BD38ZX Extraction of Right Main Bronchus, Via Natural or Artificial Opening Endoscopic, Diagnostic (ICD-10-PCS; 2017-03-22)
PROC: 30233K1 Transfusion of Nonautologous Frozen Plasma into Peripheral Vein, Percutaneous Approach (ICD-10-PCS; 2017-03-22)
PROC: 30233N1 Transfusion of Nonautologous Red Blood Cells into Peripheral Vein, Percutaneous Approach (ICD-10-PCS; 2017-03-22)
DX: C78.01 Secondary malignant neoplasm of right lung (principal); G93.6 Cerebral edema; J96.01 Acute respiratory failure with hypoxia; C79.31 Secondary malignant neoplasm of brain; C79.51 Secondary malignant neoplasm of bone; C61 Malignant neoplasm of prostate; I95.9 Hypotension, unspecified; K56.7 Ileus, unspecified; E87.1 Hypo-osmolality and hyponatremia; R04.2 Hemoptysis; Z51.5 Encounter for palliative care; R59.0 Localized enlarged lymph nodes; G62.9 Polyneuropathy, unspecified; K21.9 Gastro-esophageal reflux disease without esophagitis; D50.9 Iron deficiency anemia, unspecified; R63.0 Anorexia; D47.3 Essential (hemorrhagic) thrombocythemia; M81.0 Age-related osteoporosis without current pathological fracture; F32.9 Major depressive disorder, single episode, unspecified; F41.9 Anxiety disorder, unspecified; Z66 Do not resuscitate; Z91.010 Allergy to peanuts; Z92.21 Personal history of antineoplastic chemotherapy; R94.31 Abnormal electrocardiogram [ECG] [EKG]; M17.0 Bilateral primary osteoarthritis of knee
CPT/HCPCS: 31500; 36430; 36556; 36600; 71045; 71046; 71275; 74018; 76937; 80053; 81001; 82805; 82948; 83605; 83735; 84100; 85014; 85018; 85025; 85384; 85610; 85730; 86850; 86900; 86901; 86920; 86927; 87040; 87086; 87641; 88305; 94002; 94003; 94640; 94664; 99285; J0171; J1100; J1980; J2060; J2250; J2270; J3010; J7030; J7050; P9016; P9017; Q9967